=== PATIENT | female | born 1940 | race Caucasian/White ===

== ENCOUNTER → 2016-07-08 | Outpatient (CLI) | payer MEDICARE, OTHER ==
--- NOTE | 2016-07-09 08:33 | BD ---
EXAMINATION TYPE: MG DEXA axial skeleton. DATE OF EXAM: 07/08/2016 12:37 PM COMPARISON: 2008 CLINICAL HISTORY: post menopausal Height: 4'9 Weight: 149 FRAX RISK QUESTIONS: Alcohol (3 or more units per day): no Family History (Parent hip fracture): no Glucocorticoids (More than 3mos): no (Ex: prednisone, prednisolone, methylprednisolone, dexamethasone, and hydrocortisone). History of Fracture in Adulthood: no Secondary Osteoporosis: 1. Type 1 Diabetes: no 2. Hyperthyroidism: no 3. Menopause before 45: no 4. Malnutrition: no 5. Chronic liver disease: no Rheumatoid Arthritis: no Current Tobacco Use: no RISK FACTORS HISTORY OF: Postmenopausal woman: Lost more than 2 inches in height since high school: Poor Health: MEDICATIONS: Additional Medications: blood pressure, cholesterol, heart Additional History: post menopausal EXAM MEASUREMENTS: Bone mineral densitometry was performed using the [employer] System. Bone mineral density as measured about the Lumbar spine is: ----- L1-L4(G/cm2): 1.177 T Score Values are as follows: ----- L2: 0.3 ----- L3: -0.1 ----- L4: -0.7 ----- L1-L4: 0.0 Bone mineral density has: Decreased -2.1% since study of: 02/21/2009 Bone mineral density about the R hip (g/cm2): 0.778 Bone mineral density about the L hip (g/cm2): 0.743 T Score values are as follows: -----R Neck: -1.9 -----L Neck: -2.1 -----R Intertrochanter: -2.0 -----L Intertrochanter: -2.1 Bone mineral density has: Decreased -11.6 % since study of: 02/21/2009 IMPRESSION: 1. No evidence for osteoporosis or osteopenia about the lumbar spine. 2. Osteopenia about the bilateral femoral and acetabular sugars increased fracture risk. NOTE: T-SCORE=SD OF THE YOUNG ADULT MEAN.
--- NOTE | 2016-07-09 10:27 | MM ---
Reason for exam: screening (asymptomatic). Last mammogram was performed 2 years ago. History: Patient is postmenopausal. Benign stereotactic core biopsy of the left breast, January 10, 1999. Core biopsy of the left breast. Took hormonal contraceptives for 10 years beginning at age 35. Took estrogen for 12 years beginning at age 45. Physical Findings: A clinical breast exam by your physician is recommended on an annual basis and results should be correlated with mammographic findings. MG 3D Screening Mammo W/Cad Bilateral CC and MLO view(s) were taken. Prior study comparison: July 17, 2014, bilateral MG screening mammo w CAD. July 11, 2013, bilateral digital screening mammo w/CAD. July 05, 2012, bilateral digital screening mammo w/CAD. There are scattered fibroglandular densities. Finding: There are a few typically benign round calcifications in both breasts. Previous mammotome biopsy in the left breast. ASSESSMENT: Benign, BI-RAD 2 RECOMMENDATION: Routine screening mammogram of both breasts in 1 year.
== END | disposition home or self-care (01) ==
LOC: RADMAMWWP 11:53
PROVIDERS: ATTEND Internal Medicine
DX: Z12.31 Encounter for screening mammogram for malignant neoplasm of breast (principal); M85.852 Other specified disorders of bone density and structure, left thigh; M85.851 Other specified disorders of bone density and structure, right thigh
CPT/HCPCS: 77080; 77063; G0202

== ENCOUNTER 2017-02-10 06:51 | Day surgery (SDC) | payer MEDICARE, OTHER ==
[2017-02-05 13:44] VITALS: BMI 31.3
--- NOTE | 2017-02-09 10:46 | HP ---
HISTORY AND PHYSICAL CHIEF COMPLAINT: Left knee pain. HISTORY OF PRESENT ILLNESS: The patient is a 76-year-old retired female who presents with progressive left knee pain and giving way for the past 6 months. She notes it has worsened. She has intermittent catching and giving way. She has tried medications in addition to a previous injection with only partial temporary relief. PAST MEDICAL HISTORY: Significant for hypertension, coronary artery disease, renal disease, hyperlipidemia, reflux, and hypercalcemia. PAST SURGICAL HISTORY: Significant for previous foot surgery, bilateral carpal tunnel release and hysterectomy. CURRENT MEDICATIONS: 1. Aldactazide. 2. Baby aspirin. 3. Amlodipine. 4. Atorvastatin. 5. Losartan. 6. Metoprolol. ALLERGIES: She has sensitivity to TYLENOL WITH CODEINE and VICODIN, however, no mary drug allergies. FAMILY HISTORY: Negative. SOCIAL HISTORY: Negative for current tobacco or alcohol use. REVIEW OF SYSTEMS: Sixteen point review of systems otherwise reviewed and is noncontributory. PHYSICAL EXAMINATION: On examination, the patient is approximately 4 feet 7 inches, 152 pounds of endomorphic habitus. HEENT exam is nonfocal. Neck is supple. Active motion left knee -8 to 105 degrees of flexion. She has a moderate effusion. She is tender about the lateral joint line. Collaterals are stable, Ricky's negative, Mamadou's elicits lateral pain. Her distal neurovascular exam appears intact in the left lower extremity. X-rays to include weightbearing notch lateral and Merchant views of left knee obtained in the office showed moderate tricompartmental osteoarthrosis. Chondrocalcinosis is present. IMPRESSION: 1. Internal derangement, left knee with symptomatic lateral meniscal tear. 2. Left knee moderate tricompartmental osteoarthrosis. 3. Left knee chondrocalcinosis. RECOMMENDATIONS: I talked to the patient at length regarding her treatment options. At this point, she is quite symptomatic, having pain and mechanical symptoms that limit her. After thorough discussion, she opts to proceed with surgery. We will plan to proceed with arthroscopic evaluation with probable partial lateral meniscectomy. Risks and benefits were discussed at length in layman's terms. She underwent preoperative medical evaluation by Dr. Castrejon. MMKYA / NORAN: [id number] /
[~2017-02-10 06:51] MED LIST: DEXAMETHASONE SOD PHOSPHATE 10 MG/ML 1 ML VIAL IV ONE; LACTATED RINGERS 1,000 ML IV SCH; ONDANSETRON 4 MG/2 ML VIAL IVP ONE; ceFAZolin 1,000 MG in DEXTROSE/WATER 1 50ML.BAG IVPB ONE
[2017-02-10] MEDS ORDERED: LIDOCAINE 1% 20 ML VIAL (10MG/ML) FOR IV START INTRADERMA ONE (07:48)
[2017-02-10] MEDS ORDERED: fentaNYL (PF) 50 MCG/ML 2 ML AMP ONE (08:01)
[2017-02-10] MEDS ORDERED: ePHEDrine SULFATE/0.9% NACL/PF 50 MG/5 ML SYRINGE IV ONE (08:01)
[2017-02-10] MEDS ORDERED: PROPOFOL 10 MG/ML 20 ML VIAL IV ONE (08:01)
[2017-02-10] MEDS ORDERED: LIDOCAINE 1% INJ 10MG/ML (20 ML MDV) ONE (08:01)
[2017-02-10] MEDS ORDERED: MIDAZOLAM 2 MG/2 ML VIAL ONE (08:01)
[2017-02-10] MEDS ORDERED: KETOROLAC 30 MG/ML 1 ML VIAL ONE (08:01)
[2017-02-10] MEDS ORDERED: SUCCINYLCHOLINE CHLORIDE 100 MG/5 ML SYR IV ONE (08:01)
[2017-02-10 08:46] VITALS: TEMP 97
--- NOTE | 2017-02-10 08:48 | P.OP ---
Date of Procedure: 02/10/17 Preoperative Diagnosis: Left knee internal derangement/chondrocalcinosis Postoperative Diagnosis: Posterior horn left knee medial meniscal tear/posterior horn lateral meniscal tear/grade 3 chondral injury distal medial femoral condyle/synovitis- chondrocalcinosis Procedure(s) Performed: Left knee arthroscopic partial medial meniscectomy/partial lateral meniscectomy/ medial femoral chondrectomy/partial synovectomy of the medial, lateral, and patellofemoral compartments. Anesthesia: GETA Surgeon: Fabio Li Estimated Blood Loss (ml): 10 Pathology: none sent Condition: stable Disposition: PACU Indications for Procedure: the patient is a 76-year-old female who presents with progressive left knee pain and mechanical symptoms for the past 6 months despite conservative measures. A discussion of the risks and benefits of operative intervention versus continued conservative measures was made with the patient. She opted to proceed with surgery. Operative risks to include infection, neurovascular injury, development of blood clots, possible incomplete resolution symptoms, possible worsening symptoms and need for subsequent procedures was discussed. Informed consent was obtained. Operative Findings: As below Description of Procedure: The patient was brought to the operating room, and after induction of general anesthesia examined the left knee. Collaterals were stable, Ricky was negative, and posterior drawer was negative. The left lower extremity was prepped and draped in normal fashion. A superior lateral portal was made through a 3 mm skin incision superior and lateral to the patella. This was used for outflow. A moderate effusion was encountered. A lateral portal was made through a 5 mm skin incision above the joint line lateral to the patella tendon. Diagnostic arthroscopy was performed. A medial portal was made through a similar incision medial to the patella tendon above the joint line. On inspection the medial compartment, she is noted to have a longitudinal tear involving the posterior horn of the medial meniscus in the white-white junction. This was not amenable to repair. This was debrided back to stable base with straight baskets and a motorized shaver. Chondrocalcinosis was noted in place partial synovectomy of the medial, lateral, and patellofemoral compartments was performed. A grade 3 chondral injury was noted involving the posterior central portion medial femoral condyle. There was a loose chondral flap debrided back to stable base with a motorized shaver. On inspection the notch, the anterior cruciate ligament appeared to be intact. On inspection of the lateral compartment, a macerated tear involving the middle to posterior one third was noted in the white-white junction. This was debrided back to stable base with straight baskets and a motorized shaver. The edges were contoured. On inspection the patellofemoral articulation, there was chondral fibrillation however no loose chondral fragments. The gutters were clear debris. The knee was then thoroughly irrigated. The portals were closed with Steri-Strips. A sterile dressing was applied in addition to a compression stocking. The patient was awoken from general anesthesia and transferred to the recovery room in good condition. Blood loss was estimated at 10 mL. No complications were incurred.
[2017-02-10] MEDS: HYDROmorphone 0.5 MG/0.5 ML SYRINGE IVP PRN ×3 (08:56→09:13)
[2017-02-10 08:58] VITALS: RESP 16
[2017-02-10 11:53] VITALS: BP 92/44; PULSE 65
== END 2017-02-10 12:08 | disposition home or self-care (01) ==
LOC: OR 06:51
PROVIDERS: ATTEND Orthopaedic Surgery
DX: S83.242A Other tear of medial meniscus, current injury, left knee, initial encounter (principal); S83.282A Other tear of lateral meniscus, current injury, left knee, initial encounter; S83.32XA Tear of articular cartilage of left knee, current, initial encounter; X58.XXXA Exposure to other specified factors, initial encounter; M65.9 Synovitis and tenosynovitis, unspecified; M11.262 Other chondrocalcinosis, left knee; I25.10 Atherosclerotic heart disease of native coronary artery without angina pectoris; I12.9 Hypertensive chronic kidney disease with stage 1 through stage 4 chronic kidney disease, or unspecified chronic kidney disease; N18.9 Chronic kidney disease, unspecified; E78.5 Hyperlipidemia, unspecified; K21.9 Gastro-esophageal reflux disease without esophagitis; Z79.82 Long term (current) use of aspirin; Z79.899 Other long term (current) drug therapy; Z88.5 Allergy status to narcotic agent

== ENCOUNTER 2018-10-10 19:46 | Emergency (ER) | payer MEDICARE, OTHER ==
[2018-10-10 21:11] LABS: Basophils % (A) 0 %; Eosinophils # (A) 0.1 k/uL (0-0.7); Eosinophils % (A) 1 %; HCT 41.8 % (34.0-46.0); HGB 13.4 gm/dL (11.4-16.0); Lymphocytes # (A) 1.5 k/uL (1.0-4.8); Lymphocytes % (A) 11 %; MCH 29.5 pg (25.0-35.0); MCV 92.1 fL (80.0-100.0); Mean Platelet Volume 7.7; Monocytes # (A) 1.1 k/uL (0-1.0); Monocytes % (A) 8 %; Neutrophils # (A) 11.1 k/uL (1.3-7.7); Neutrophils % (A) 78 %; Platelet Count 232 k/uL (150-450); RBC 4.54 m/uL (3.80-5.40); RDW 13.2 % (11.5-15.5); WBC 14.2 k/uL (3.8-10.6)
[2018-10-10 21:19] LABS: Calcium 10.1 mg/dL (8.4-10.2); Potassium 3.7 mmol/L (3.5-5.1); Total Bilirubin 0.7 mg/dL (0.2-1.3); Total Protein 6.5 g/dL (6.3-8.2)
[2018-10-10 21:37] LABS: Appearance,Urine Clear (Clear); Bilirubin,Urine Negative (Negative); Blood,Urine Negative (Negative); Color,Urine Yellow; Glucose,Urine (UA) Negative (Negative); Ketones,Urine Negative (Negative); Leukocyte Esterase,Urine Moderate (Negative); Mucus,Urine Rare /hpf; Nitrite,Urine Negative (Negative); PH, Urine 5.5 (5.0-8.0); Protein,Urine Negative (Negative); RBC,Urine <1 /hpf (0-5); Specific Gravity,Urine 1.017 (1.001-1.035); Squamous Epithelial Cell,Urine <1 /hpf (0-4); Urobilinogen,Urine <2.0 mg/dL (<2.0)
--- NOTE | 2018-10-10 22:22 | CT ---
EXAM: CT Abdomen and Pelvis With Intravenous Contrast CLINICAL HISTORY: ITS.REASON CT Reason: abdominal pain TECHNIQUE: Axial computed tomography images of the abdomen and pelvis with intravenous contrast. CTDI is 21 mGy and DLP is 873 mGy-cm. This CT exam was performed using one or more of the following dose reduction techniques: automated exposure control, adjustment of the mA and/or kV according to patient size, and/or use of iterative reconstruction technique. COMPARISON: No relevant prior studies available. FINDINGS: Lung bases: No mass. No consolidation. ABDOMEN: Liver: Mild steatosis. Gallbladder and bile ducts: Unremarkable. Pancreas: Unremarkable. Spleen: Unremarkable. Adrenals: Unremarkable. Kidneys and ureters: No hydronephrosis. Cysts. Stomach and bowel: No bowel obstruction. No bowel wall thickening. Colonic diverticulosis. Superior stool impaction at the rectum. PELVIS: Appendix: No appendicitis. Bladder: Unremarkable. Reproductive: Left ovary measures 2.3 cm. ABDOMEN and PELVIS: Intraperitoneal space: Unremarkable. Bones/joints: No acute fractures. Soft tissues: Unremarkable. Vasculature: No abdominal aortic aneurysm. Lymph nodes: No enlarged lymph nodes. IMPRESSION: 1. Severe stool impaction at the rectum. Colonic diverticulosis. 2. Mild hepatic steatosis. 3. Left ovary measures up to 2.3 cm, more than expected for patient of postmenopausal status. Recommend outpatient follow-up with ultrasound to establish benignity.
[2018-10-11 00:40] VITALS: BP 168/70; PULSE 69; RESP 16; TEMP 98.2
--- NOTE | 2018-10-11 00:43 | ED ---
Abdominal Pain HPI - General Chief Complaint: Abdominal Pain Stated Complaint: Constipation Time Seen by Provider: 10/10/18 19:56 Source: patient Mode of arrival: ambulatory Limitations: no limitations - History of Present Illness Initial Comments: The patient is a 78-year-old female who presents to the emergency department with reported abdominal pain. She states that the pain started earlier today. She normally has a bowel movement every other day. States that she hasn't had improvement in 3 days. She has been drinking hot water using stool softeners and eating prunes. She has had no success in having a bowel movement. She also reports that she is to left finger to attempt to disimpact herself. She believes that she is constipated. She recently was put on a Medrol Dosepak for hip pain. She has had decreasing the amount of flatus that she is passing. She denies a history of bowel surgeries for small bowel obstructions. She denies any melanotic stools or hematochezia. No diarrhea. She denies any nausea or vomiting. Does admit to mild abdominal tenderness. No fevers or chills. There are no alleviating, precipitating or modifying factors - Related Data Home Medications Medication Instructions Recorded Confirmed Aspirin 81 mg PO DAILY 01/27/14 10/10/18 Losartan Potassium [Cozaar] 100 mg PO QAM 01/27/14 10/10/18 Spironolactone-Hctz 25-25Mg 0.5 tab PO QAM 01/27/14 10/10/18 [Aldactazide 25-25 MG] Atorvastatin [Lipitor] 20 mg PO HS 02/05/17 10/10/18 Cholecalciferol [Vitamin D3] 1,000 unit PO DAILY 02/05/17 10/10/18 Isosorbide Mononitrate [Isosorbide 30 mg PO QAM 02/05/17 10/10/18 Mononitrate ER] Magnesium 250 mg PO DAILY 02/05/17 10/10/18 Metoprolol Tartrate [Lopressor] 25 mg PO HS 02/05/17 10/10/18 Naproxen Sodium [Aleve] 220 mg PO BID 02/05/17 10/10/18 Travoprost [Travatan Z 0.004%] 1 drop BOTH EYES HS 02/05/17 10/10/18 Hydrochlorothiazide 25 mg PO Q48H 10/10/18 10/10/18 methylPREDNISolone Dose Pack See Taper PO DAILY 10/10/18 10/10/18 [Medrol Dose Pack] Allergies Allergy/AdvReac Type Severity Reaction Status Date / Time codeine Allergy Hallucinati Verified 10/10/18 20:19 ons hydrocodone bitartrate Allergy Hallucinati Verified 10/10/18 20:19 [From Vicodin] ons Review of Systems ROS Statement: Those systems with pertinent positive or pertinent negative responses have been documented in the HPI. ROS Other: All systems not noted in ROS Statement are negative. Past Medical History Past Medical History: Chest Pain / Angina, Eye Disorder, Hyperlipidemia, Hypertension Additional Past Medical History / Comment(s): GLAUCOMA, History of Any Multi-Drug Resistant Organisms: None Reported Past Surgical History: Hysterectomy, Orthopedic Surgery Additional Past Surgical History / Comment(s): RT FOOT BUNIONECTOMY, LEFT BREAST BX Past Anesthesia/Blood Transfusion Reactions: No Reported Reaction Past Psychological History: No Psychological Hx Reported Smoking Status: Never smoker Past Alcohol Use History: None Reported Past Drug Use History: None Reported - Past Family History Mother Family Medical History: AICD/Pacemaker, Coronary Artery Disease (CAD) Additional Family Medical History / Comment(s): MOTHER, CABG AND PACEMAKER General Exam Limitations: no limitations General appearance: alert, in no apparent distress Head exam: Present: atraumatic, normocephalic, normal inspection Eye exam: Present: normal appearance, PERRL, EOMI. Absent: scleral icterus, conjunctival injection, periorbital swelling ENT exam: Present: normal exam, mucous membranes moist Neck exam: Present: normal inspection. Absent: tenderness, meningismus, lymphadenopathy Respiratory exam: Present: normal lung sounds bilaterally. Absent: respiratory distress, wheezes, rales, rhonchi, stridor Cardiovascular Exam: Present: regular rate, normal rhythm, normal heart sounds. Absent: systolic murmur, diastolic murmur, rubs, gallop, clicks GI/Abdominal exam: Present: soft, normal bowel sounds. Absent: distended, tenderness, guarding, rebound, rigid Extremities exam: Present: normal inspection, full ROM, normal capillary refill. Absent: tenderness, pedal edema, joint swelling, calf tenderness Back exam: Present: normal inspection Neurological exam: Present: alert, oriented X3, CN II-XII intact Psychiatric exam: Present: normal affect, normal mood Skin exam: Present: warm, dry, intact, normal color. Absent: rash Course Vital Signs 10/10/18 10/10/18 19:51 22:30 Temperature 97.8 F 98.2 F Pulse Rate 67 69 Respiratory 18 16 Rate Blood Pressure 171/71 168/70 O2 Sat by Pulse 98 98 Oximetry Medical Decision Making - Medical Decision Making Upon arrival the patient is placed into room 4. She is hooked up to continuous pulse ox and cardiac monitoring. A thorough history and physical exam is per formed. I did recommend laboratory studies as well as a chief the patient's abdomen and pelvis as she stated that she has not been able to pass gas. Upon return results I did discuss with the patient. She does have a large rectal stool ball. Because of this I did recommend rectal impaction. Patient did agree to this. The procedure was performed the patient was able to have a large bowel movement. She did feel relief. I discussed diagnosis, differential and treatment options at home. I did recommend that the patient take MiraLAX for the next 5 days. She is to follow-up with her primary care physician for reevaluation. If she has any new or worsening symptoms she should return to em ergency room. Patient was in agreement to plan and she was discharged home in stable condition - Lab Data Result diagrams: 10/10/18 20:53 10/10/18 20:53 Lab Results 10/10/18 10/10/18 10/10/18 Range/Units 20:53 20:53 20:53 WBC 14.2 H (3.8-10.6) k/uL RBC 4.54 (3.80-5.40) m/uL Hgb 13.4 (11.4-16.0) gm/dL Hct 41.8 (34.0-46.0) % MCV 92.1 (80.0-100.0) fL MCH 29.5 (25.0-35.0) pg MCHC 32.0 (31.0-37.0) g/dL RDW 13.2 (11.5-15.5) % Plt Count 232 (150-450) k/uL Neutrophils % 78 % Lymphocytes % 11 % Monocytes % 8 % Eosinophils % 1 % Basophils % 0 % Neutrophils # 11.1 H (1.3-7.7) k/uL Lymphocytes # 1.5 (1.0-4.8) k/uL Monocytes # 1.1 H (0-1.0) k/uL Eosinophils # 0.1 (0-0.7) k/uL Basophils # 0.0 (0-0.2) k/uL Sodium 136 L (137-145) mmol/L Potassium 3.7 (3.5-5.1) mmol/L Chloride 102 (98-107) mmol/L Carbon Dioxide 23 (22-30) mmol/L Anion Gap 11 mmol/L BUN 61 H (7-17) mg/dL Creatinine 1.32 H (0.52-1.04) mg/dL Est GFR (CKD-EPI)AfAm 45 (>60 ml/min/1.73 sqM) Est GFR (CKD-EPI)NonAf 39 (>60 ml/min/1.73 sqM) Glucose 102 H (74-99) mg/dL Plasma Lactic Acid Gabriel 1.1 (0.7-2.0) mmol/L Calcium 10.1 (8.4-10.2) mg/dL Total Bilirubin 0.7 (0.2-1.3) mg/dL AST 29 (14-36) U/L ALT 30 (9-52) U/L Alkaline Phosphatase 107 (38-126) U/L Total Protein 6.5 (6.3-8.2) g/dL Albumin 4.0 (3.5-5.0) g/dL Lipase 612 H (23-300) U/L Urine Color Urine Appearance (Clear) Urine pH (5.0-8.0) Ur Specific [place] (1.001-1.035) Urine Protein (Negative) Urine Glucose (UA) (Negative) Urine Ketones (Negative) Urine Blood (Negative) Urine Nitrite (Negative) Urine Bilirubin (Negative) Urine Urobilinogen (<2.0) mg/dL Ur Leukocyte Esterase (Negative) Urine RBC (0-5) /hpf Urine WBC (0-5) /hpf Ur Squamous Epith Cells (0-4) /hpf Urine Mucus (None) /hpf 10/10/18 Range/Units 20:53 WBC (3.8-10.6) k/uL RBC (3.80-5.40) m/uL Hgb (11.4-16.0) gm/dL Hct (34.0-46.0) % MCV (80.0-100.0) fL MCH (25.0-35.0) pg MCHC (31.0-37.0) g/dL RDW (11.5-15.5) % Plt Count (150-450) k/uL Neutrophils % % Lymphocytes % % Monocytes % % Eosinophils % % Basophils % % Neutrophils # (1.3-7.7) k/uL Lymphocytes # (1.0-4.8) k/uL Monocytes # (0-1.0) k/uL Eosinophils # (0-0.7) k/uL Basophils # (0-0.2) k/uL Sodium (137-145) mmol/L Potassium (3.5-5.1) mmol/L Chloride (98-107) mmol/L Carbon Dioxide (22-30) mmol/L Anion Gap mmol/L BUN (7-17) mg/dL Creatinine (0.52-1.04) mg/dL Est GFR (CKD-EPI)AfAm (>60 ml/min/1.73 sqM) Est GFR (CKD-EPI)NonAf (>60 ml/min/1.73 sqM) Glucose (74-99) mg/dL Plasma Lactic Acid Gabriel (0.7-2.0) mmol/L Calcium (8.4-10.2) mg/dL Total Bilirubin (0.2-1.3) mg/dL AST (14-36) U/L ALT (9-52) U/L Alkaline Phosphatase (38-126) U/L Total Protein (6.3-8.2) g/dL Albumin (3.5-5.0) g/dL Lipase (23-300) U/L Urine Color Yellow Urine Appearance Clear (Clear) Urine pH 5.5 (5.0-8.0) Ur Specific [place] 1.017 (1.001-1.035) Urine Protein Negative (Negative) Urine Glucose (UA) Negative (Negative) Urine Ketones Negative (Negative) Urine Blood Negative (Negative) Urine Nitrite Negative (Negative) Urine Bilirubin Negative (Negative) Urine Urobilinogen <2.0 (<2.0) mg/dL Ur Leukocyte Esterase Moderate H (Negative) Urine RBC <1 (0-5) /hpf Urine WBC 2 (0-5) /hpf Ur Squamous Epith Cells <1 (0-4) /hpf Urine Mucus Rare H (None) /hpf - EKG Data EKG Comments: A 12-lead EKG is performed and the patient which demonstrated normal sinus rhythm. Ventricular rate of 63. WI interval 118. QRS 88. QTC of 427. There are no acute ST segment elevations or depressions concerning for ischemic changes Disposition Clinical Impression: Constipation, Abdominal pain Disposition: HOME SELF-CARE Condition: Stable Instructions (If sedation given, give patient instructions): Constipation (ED) Additional Instructions: Please follow up with your PCP in 2-4 days. Return to the ED for any new or worsening symptoms. Take Miralax daily for 5 days. Is patient prescribed a controlled substance at d/c from ED?: No Referrals: Lalito Castrejon MD [Primary Care Provider] - 1-2 days Time of Disposition: 00:42
== END 2018-10-11 00:50 | disposition home or self-care (01) ==
LOC: EC 19:46
DX: K59.00 Constipation, unspecified (principal); K57.30 Diverticulosis of large intestine without perforation or abscess without bleeding; K76.0 Fatty (change of) liver, not elsewhere classified; I10 Essential (primary) hypertension; E78.5 Hyperlipidemia, unspecified; Z79.1 Long term (current) use of non-steroidal anti-inflammatories (NSAID); Z79.82 Long term (current) use of aspirin; Z79.899 Other long term (current) drug therapy; Z88.5 Allergy status to narcotic agent; Z88.6 Allergy status to analgesic agent
CPT/HCPCS: 36415; 93005; 80053; 83605; 83690; 85025; 81001; 74177; 99284; Q9967

== ENCOUNTER → 2018-10-20 | Outpatient (CLI) | payer MEDICARE, OTHER ==
--- NOTE | 2018-10-21 07:28 | US ---
EXAMINATION TYPE: US pelvis complete transvag DATE OF EXAM: 10/20/2018 COMPARISON: NONE CLINICAL HISTORY: N83.0 OVARIAN CYST,R31.9 HEMATURIA. History of right oophorectomy and hysterectomy TECHNIQUE: Transvaginal (TV) and Transabdominal (TA) . Transabdominal sonographic images of the pel vis were acquired. Transvaginal sonographic images were medically necessary to better assess the fol lowing anatomy: left ovary, per order Date of LMP: Patient postmenopausal EXAM MEASUREMENTS: Uterus: Surgically absent Endometrial Stripe: Surgically absent Right Ovary: Surgically absent Left Ovary: cystic structure measuring 2.4 x 1.5 x 2.0cm 1. Uterus: Surgically absent 2. Endometrium: Surgically absent 3. Right Ovary: Surgically absent 4. Left adnexa: cystic structure again measuring 2.4 x 1.5 x 2.0 cm. This appears anechoic and simple without mural nodule number internal septation. 5. Bilateral Adnexa: wnl 6. Posterior cul-de-sac: wnl Unable to visualize cystic structure in left adnexa vaginally due to lateral location. IMPRESSION: 1. Simple 2.4 cm left ovarian cyst. According to consensus criteria a annual surveillance with pelvic ultrasound is recommended in postmenopausal female with cysts measuring up to 7 cm. 2. Surgical absence of the uterus and right ovary.
== END | disposition home or self-care (01) ==
LOC: RADUSWWP 15:20
PROVIDERS: ATTEND Internal Medicine
DX: N83.202 Unspecified ovarian cyst, left side (principal); N95.9 Unspecified menopausal and perimenopausal disorder; Z90.710 Acquired absence of both cervix and uterus; R31.9 Hematuria, unspecified
CPT/HCPCS: 76830; 76856

== ENCOUNTER → 2019-10-14 | Outpatient (CLI) | payer MEDICARE, OTHER ==
--- NOTE | 2019-10-14 15:18 | US ---
EXAMINATION TYPE: US carotid duplex LT DATE OF EXAM: 10/14/2019 COMPARISON: NONE CLINICAL HISTORY: 79-year-old female R09.89 symptoms and signs involving. LEFT bruit, no h/o stroke TECHNIQUE: Carotid duplex ultrasound examination. Indirect Doppler criteria utilized. FINDINGS: EXAM MEASUREMENTS: RIGHT: Peak Systolic Velocity (PSV) cm/sec ----- Right CCA: 92.7 ----- Right ICA: 86.6 ----- Right ECA: 157.2 ICA/CCA ratio: 0.9 RIGHT: End Diastole cm/sec ----- Right CCA: 15.1 ----- Right ICA: 10.7 ----- Right ECA: 16.6 LEFT: Peak Systolic Velocity (PSV) cm/sec ----- Left CCA: 104.7 ----- Left ICA: 120.7 ----- Left ECA: 176.6 ICA/CCA ratio: 1.2 LEFT: End Diastole cm/sec ----- Left CCA: 11.3 ----- Left ICA: 19.8 ----- Left ECA: 11.0 VERTEBRALS (direction of flow): Right Vertebral: Antegrade Left Vertebral: Antegrade Rhythm: Normal Roll Scale Worker notes: Moderate atherosclerotic plaque on the left with no significant stenosis IMPRESSION: Measurement suggest a mild stenosis proximal left ICA. No hemodynamically significant internal caroti d artery stenosis on either side. Criteria for Assigning % of Stenosis / Diameter reduction (Estimation based on the indirect measurements of the internal carotid artery velocities (ICA PSV). 1. Normal (no stenosis)=ICA PSV < 125 cm/s: ratio < 2.0: ICA EDV<40 cm/s. 2. Less than 50% stenosis=ICA PSV < 125 cm/s: ratio < 2.0: ICA EDV<40 cm/s. 3. 50 to 69% stenosis=ICA PSV of 125 to 230 cm/s: ration 2.0 ? 4.0: ICA EDV 40-100 cm/s. 4. Greater than 70% stenosis to near occlusion= ICA PSV > 230 cm/s: ratio > 4.0: ICA EDV > 100 cm/s. 5. Near occlusion= ICA PSV velocities may be low or undetectable: variable ratio and ICA EDV. 6. Total occlusion=unable to detect flow.
== END | disposition home or self-care (01) ==
LOC: RADUSWWP 14:49
PROVIDERS: ATTEND Internal Medicine
DX: I25.10 Atherosclerotic heart disease of native coronary artery without angina pectoris (principal)

== ENCOUNTER → 2020-01-18 | Outpatient (CLI) | payer MEDICARE, OTHER ==
[2020-01-18 20:26] LABS: Phosphorus 2.6 mg/dL (2.4-5.1)
[2020-01-19 10:36] LABS: Free Kappa Lt Chain Qnt, Serum 2.93 mg/dL (0.33-1.94)
== END | disposition home or self-care (01) ==
LOC: LABWHC1 10:55
PROVIDERS: ATTEND Internal Medicine
DX: E83.52 Hypercalcemia (principal)
CPT/HCPCS: 36415; 82306; 83883; 83970; 84100

== ENCOUNTER → 2020-06-19 | Outpatient (CLI) | payer MEDICARE, OTHER ==
--- NOTE | 2020-06-20 14:50 | MM ---
Reason for exam: screening (asymptomatic). Last mammogram was performed 2 years ago. History: Patient is postmenopausal. Benign stereotactic core biopsy of the left breast, January 10, 1999. Core biopsy of the left breast. Took hormonal contraceptives for 10 years beginning at age 35. Took estrogen for 12 years beginning at age 45. Physical Findings: A clinical breast exam by your physician is recommended on an annual basis and results should be correlated with mammographic findings. MG 3D Screening Mammo W/Cad Bilateral CC and MLO view(s) were taken. Prior study comparison: June 10, 2018, bilateral MG 3d screening mammo w/cad. July 08, 2016, bilateral MG 3d screening mammo w/cad. There are scattered fibroglandular densities. There is no discrete abnormality. No significant changes when compared with prior studies. ASSESSMENT: Negative, BI-RAD 1 RECOMMENDATION: Routine screening mammogram of both breasts in 1 year.
== END | disposition home or self-care (01) ==
LOC: RADMAMWWP 16:03
PROVIDERS: ATTEND Internal Medicine
DX: Z12.31 Encounter for screening mammogram for malignant neoplasm of breast (principal); Z78.0 Asymptomatic menopausal state
CPT/HCPCS: 77063; 77067

== ENCOUNTER 2020-07-20 15:02 | Emergency (ER) | payer MEDICARE, OTHER ==
[2020-07-20 15:24] VITALS: TEMP 98
[2020-07-20] MEDS ORDERED: SODIUM CHLORIDE 0.9% 1,000 ML IV ONE (15:59)
--- NOTE | 2020-07-20 16:05 | ED ---
Altered Mental Status HPI - General Chief Complaint: Altered Mental Status Stated Complaint: Confusion Time Seen by Provider: 07/20/20 15:45 Source: patient, RN notes reviewed Mode of arrival: wheelchair Limitations: no limitations - History of Present Illness Initial Comments: This is an 80-year-old female with no prior history of CVA or memory impairment she does have a family history of dementia as well as macular degeneration who states she's had a problem in the past week with remembering remote memory items such as going into rooms not knowing why she is there or fleeting what day of the week it was. No headaches fevers chills nausea vomiting sweats no trauma no other symptoms reported. No focal weaknesses. Per family member's with her she seems to be her normal self except for the memory issue. Patient does states she's had a issue lately with some urinary incontinence in the morning she does not get up during the night to go to the bathroom. MD Complaint: confusion - Related Data Home Medications Medication Instructions Recorded Confirmed Aspirin 81 mg PO HS 01/27/14 07/20/20 Losartan Potassium [Cozaar] 100 mg PO QAM 01/27/14 07/20/20 Atorvastatin [Lipitor] 20 mg PO HS 02/05/17 07/20/20 Isosorbide Mononitrate [Isosorbide 30 mg PO QAM 02/05/17 07/20/20 Mononitrate ER] Magnesium 250 mg PO HS 02/05/17 07/20/20 Metoprolol Tartrate [Lopressor] 25 mg PO DAILY 02/05/17 07/20/20 Travoprost [Travatan Z 0.004%] 1 drop BOTH EYES HS 02/05/17 07/20/20 hydroCHLOROthiazide 25 mg PO Q48H 10/10/18 07/20/20 Chlorthalidone 25 mg PO Q48H 07/20/20 07/20/20 Cholecalciferol (Vitamin D3) 125 mcg PO HS 07/20/20 07/20/20 [Vitamin D3 (5000 Iu)] Spironolactone [Aldactone] 25 mg PO DAILY 07/20/20 07/20/20 Previous Rx's Medication Instructions Recorded Cephalexin [Keflex] 500 mg PO Q8HR 1 Days #21 cap 07/20/20 Allergies Allergy/AdvReac Type Severity Reaction Status Date / Time codeine Allergy Hallucinati Verified 07/20/20 18:38 ons hydrocodone bitartrate Allergy Hallucinati Verified 07/20/20 18:38 [From Vicodin] ons Review of Systems ROS Statement: Those systems with pertinent positive or pertinent negative responses have been documented in the HPI. ROS Other: All systems not noted in ROS Statement are negative. Past Medical History Past Medical History: Chest Pain / Angina, Eye Disorder, Hyperlipidemia, Hypertension Additional Past Medical History / Comment(s): GLAUCOMA, History of Any Multi-Drug Resistant Organisms: None Reported Past Surgical History: Hysterectomy, Orthopedic Surgery Additional Past Surgical History / Comment(s): RT FOOT BUNIONECTOMY, LEFT BREAST BX Past Anesthesia/Blood Transfusion Reactions: No Reported Reaction Past Psychological History: No Psychological Hx Reported Smoking Status: Never smoker Past Alcohol Use History: None Reported Past Drug Use History: None Reported - Past Family History Mother Family Medical History: AICD/Pacemaker, Coronary Artery Disease (CAD) Additional Family Medical History / Comment(s): MOTHER, CABG AND PACEMAKER General Exam - General Exam Comments Initial Comments: This is a well-developed well-nourished awake alert oriented 3 female Limitations: no limitations General appearance: alert, in no apparent distress Head exam: Present: atraumatic, normocephalic, normal inspection Eye exam: Present: normal appearance, PERRL, EOMI. Absent: scleral icterus, conjunctival injection, periorbital swelling ENT exam: Present: mucous membranes dry Neck exam: Present: normal inspection. Absent: tenderness, meningismus, lymphadenopathy Respiratory exam: Present: normal lung sounds bilaterally. Absent: respiratory distress, wheezes, rales, rhonchi, stridor Cardiovascular Exam: Present: regular rate, normal rhythm, normal heart sounds. Absent: systolic murmur, diastolic murmur, rubs, gallop, clicks GI/Abdominal exam: Present: soft, normal bowel sounds. Absent: distended, tenderness, guarding, rebound, rigid Extremities exam: Present: normal inspection, full ROM, normal capillary refill. Absent: tenderness, pedal edema, joint swelling, calf tenderness Back exam: Present: normal inspection Neurological exam: Present: alert, oriented X3, CN II-XII intact Psychiatric exam: Present: normal affect, normal mood Skin exam: Present: warm, dry, intact, normal color. Absent: rash Course Vital Signs 0407/20/20 07/20/20 15:21 18:24 19:04 Temperature 98 F Pulse Rate 70 69 70 Respiratory 18 18 18 Rate Blood Pressure 182/65 191/59 174/56 O2 Sat by Pulse 97 99 98 Oximetry Medical Decision Making - Medical Decision Making I did discuss [employer] the patient family patient is awake alert oriented 3. She will be discharged she does have evidence of some dehydration as well as evidence of UTI. We placed on antibiotics she is a follow-up with her doctor return when necessary - Lab Data Result diagrams: 07/20/20 16:08 07/20/20 16:08 Lab Results 07/20/20 07/20/20 07/20/20 Range/Units 16:08 16:08 16:08 WBC 10.1 (3.8-10.6) k/uL RBC 4.82 (3.80-5.40) m/uL Hgb 14.7 (11.4-16.0) gm/dL Hct 43.8 (34.0-46.0) % MCV 90.9 (80.0-100.0) fL MCH 30.5 (25.0-35.0) pg MCHC 33.6 (31.0-37.0) g/dL RDW 12.2 (11.5-15.5) % Plt Count 207 (150-450) k/uL MPV 8.3 Neutrophils % 73 % Lymphocytes % 16 % Monocytes % 6 % Eosinophils % 4 % Basophils % 1 % Neutrophils # 7.4 (1.3-7.7) k/uL Lymphocytes # 1.6 (1.0-4.8) k/uL Monocytes # 0.6 (0-1.0) k/uL Eosinophils # 0.4 (0-0.7) k/uL Basophils # 0.1 (0-0.2) k/uL PT 9.5 (9.0-12.0) sec INR 0.9 (<1.2) APTT 20.9 L (22.0-30.0) sec Sodium (137-145) mmol/L Potassium (3.5-5.1) mmol/L Chloride (98-107) mmol/L Carbon Dioxide (22-30) mmol/L Anion Gap mmol/L BUN (7-17) mg/dL Creatinine (0.52-1.04) mg/dL Est GFR (CKD-EPI)AfAm (>60 ml/min/1.73 sqM) Est GFR (CKD-EPI)NonAf (>60 ml/min/1.73 sqM) Glucose (74-99) mg/dL Calcium (8.4-10.2) mg/dL Magnesium (1.6-2.3) mg/dL Total Bilirubin (0.2-1.3) mg/dL AST (14-36) U/L ALT (4-34) U/L Alkaline Phosphatase (38-126) U/L Ammonia (<30) umol/L Creatine Kinase (30-135) U/L Troponin I (0.000-0.034) ng/mL Total Protein (6.3-8.2) g/dL Albumin (3.5-5.0) g/dL Urine Color Yellow Urine Appearance Clear (Clear) Urine pH 6.5 (5.0-8.0) Ur Specific [place] 1.018 (1.001-1.035) Urine Protein Negative (Negative) Urine Glucose (UA) Negative (Negative) Urine Ketones Negative (Negative) Urine Blood Negative (Negative) Urine Nitrite Negative (Negative) Urine Bilirubin Negative (Negative) Urine Urobilinogen <2.0 (<2.0) mg/dL Ur Leukocyte Esterase Large H (Negative) Urine RBC 1 (0-5) /hpf Urine WBC 28 H (0-5) /hpf Ur Squamous Epith Cells <1 (0-4) /hpf Urine Bacteria Rare H (None) /hpf Hyaline Casts 1 (0-2) /lpf Urine Mucus Rare H (None) /hpf Urine Opiates Screen Not Detected (NotDetected) Ur Oxycodone Screen Not Detected (NotDetected) Urine Methadone Screen Not Detected (NotDetected) Ur Propoxyphene Screen Not Detected (NotDetected) Ur Barbiturates Screen Not Detected (NotDetected) U Tricyclic Antidepress Not Detected (NotDetected) Ur Phencyclidine Scrn Not Detected (NotDetected) Ur Amphetamines Screen Not Detected (NotDetected) U Methamphetamines Scrn Not Detected (NotDetected) U Benzodiazepines Scrn Not Detected (NotDetected) Urine Cocaine Screen Not Detected (NotDetected) U Marijuana (THC) Screen Not Detected (NotDetected) Influenza Type A (PCR) (Not Detectd) Influenza Type B (PCR) (Not Detectd) RSV (PCR) (Not Detectd) SARS-CoV-2 (PCR) (Not Detectd) 07/20/20 07/20/20 07/20/20 Range/Units 16:08 16:08 16:08 WBC (3.8-10.6) k/uL RBC (3.80-5.40) m/uL Hgb (11.4-16.0) gm/dL Hct (34.0-46.0) % MCV (80.0-100.0) fL MCH (25.0-35.0) pg MCHC (31.0-37.0) g/dL RDW (11.5-15.5) % Plt Count (150-450) k/uL MPV Neutrophils % % Lymphocytes % % Monocytes % % Eosinophils % % Basophils % % Neutrophils # (1.3-7.7) k/uL Lymphocytes # (1.0-4.8) k/uL Monocytes # (0-1.0) k/uL Eosinophils # (0-0.7) k/uL Basophils # (0-0.2) k/uL PT (9.0-12.0) sec INR (<1.2) APTT (22.0-30.0) sec Sodium 139 (137-145) mmol/L Potassium 3.8 (3.5-5.1) mmol/L Chloride 99 (98-107) mmol/L Carbon Dioxide 31 H (22-30) mmol/L Anion Gap 9 mmol/L BUN 45 H (7-17) mg/dL Creatinine 1.49 H (0.52-1.04) mg/dL Est GFR (CKD-EPI)AfAm 38 (>60 ml/min/1.73 sqM) Est GFR (CKD-EPI)NonAf 33 (>60 ml/min/1.73 sqM) Glucose 106 H (74-99) mg/dL Calcium 11.0 H (8.4-10.2) mg/dL Magnesium 2.3 (1.6-2.3) mg/dL Total Bilirubin 0.6 (0.2-1.3) mg/dL AST 35 (14-36) U/L ALT 22 (4-34) U/L Alkaline Phosphatase 109 (38-126) U/L Ammonia <9 (<30) umol/L Creatine Kinase 68 (30-135) U/L Troponin I <0.012 (0.000-0.034) ng/mL Total Protein 7.0 (6.3-8.2) g/dL Albumin 4.3 (3.5-5.0) g/dL Urine Color Urine Appearance (Clear) Urine pH (5.0-8.0) Ur Specific [place] (1.001-1.035) Urine Protein (Negative) Urine Glucose (UA) (Negative) Urine Ketones (Negative) Urine Blood (Negative) Urine Nitrite (Negative) Urine Bilirubin (Negative) Urine Urobilinogen (<2.0) mg/dL Ur Leukocyte Esterase (Negative) Urine RBC (0-5) /hpf Urine WBC (0-5) /hpf Ur Squamous Epith Cells (0-4) /hpf Urine Bacteria (None) /hpf Hyaline Casts (0-2) /lpf Urine Mucus (None) /hpf Urine Opiates Screen (NotDetected) Ur Oxycodone Screen (NotDetected) Urine Methadone Screen (NotDetected) Ur Propoxyphene Screen (NotDetected) Ur Barbiturates Screen (NotDetected) U Tricyclic Antidepress (NotDetected) Ur Phencyclidine Scrn (NotDetected) Ur Amphetamines Screen (NotDetected) U Methamphetamines Scrn (NotDetected) U Benzodiazepines Scrn (NotDetected) Urine Cocaine Screen (NotDetected) U Marijuana (THC) Screen (NotDetected) Influenza Type A (PCR) (Not Detectd) Influenza Type B (PCR) (Not Detectd) RSV (PCR) (Not Detectd) SARS-CoV-2 (PCR) (Not Detectd) 07/20/20 Range/Units 16:08 WBC (3.8-10.6) k/uL RBC (3.80-5.40) m/uL Hgb (11.4-16.0) gm/dL Hct (34.0-46.0) % MCV (80.0-100.0) fL MCH (25.0-35.0) pg MCHC (31.0-37.0) g/dL RDW (11.5-15.5) % Plt Count (150-450) k/uL MPV Neutrophils % % Lymphocytes % % Monocytes % % Eosinophils % % Basophils % % Neutrophils # (1.3-7.7) k/uL Lymphocytes # (1.0-4.8) k/uL Monocytes # (0-1.0) k/uL Eosinophils # (0-0.7) k/uL Basophils # (0-0.2) k/uL PT (9.0-12.0) sec INR (<1.2) APTT (22.0-30.0) sec Sodium (137-145) mmol/L Potassium (3.5-5.1) mmol/L Chloride (98-107) mmol/L Carbon Dioxide (22-30) mmol/L Anion Gap mmol/L BUN (7-17) mg/dL Creatinine (0.52-1.04) mg/dL Est GFR (CKD-EPI)AfAm (>60 ml/min/1.73 sqM) Est GFR (CKD-EPI)NonAf (>60 ml/min/1.73 sqM) Glucose (74-99) mg/dL Calcium (8.4-10.2) mg/dL Magnesium (1.6-2.3) mg/dL Total Bilirubin (0.2-1.3) mg/dL AST (14-36) U/L ALT (4-34) U/L Alkaline Phosphatase (38-126) U/L Ammonia (<30) umol/L Creatine Kinase (30-135) U/L Troponin I (0.000-0.034) ng/mL Total Protein (6.3-8.2) g/dL Albumin (3.5-5.0) g/dL Urine Color Urine Appearance (Clear) Urine pH (5.0-8.0) Ur Specific [place] (1.001-1.035) Urine Protein (Negative) Urine Glucose (UA) (Negative) Urine Ketones (Negative) Urine Blood (Negative) Urine Nitrite (Negative) Urine Bilirubin (Negative) Urine Urobilinogen (<2.0) mg/dL Ur Leukocyte Esterase (Negative) Urine RBC (0-5) /hpf Urine WBC (0-5) /hpf Ur Squamous Epith Cells (0-4) /hpf Urine Bacteria (None) /hpf Hyaline Casts (0-2) /lpf Urine Mucus (None) /hpf Urine Opiates Screen (NotDetected) Ur Oxycodone Screen (NotDetected) Urine Methadone Screen (NotDetected) Ur Propoxyphene Screen (NotDetected) Ur Barbiturates Screen (NotDetected) U Tricyclic Antidepress (NotDetected) Ur Phencyclidine Scrn (NotDetected) Ur Amphetamines Screen (NotDetected) U Methamphetamines Scrn (NotDetected) U Benzodiazepines Scrn (NotDetected) Urine Cocaine Screen (NotDetected) U Marijuana (THC) Screen (NotDetected) Influenza Type A (PCR) Not Detected (Not Detectd) Influenza Type B (PCR) Not Detected (Not Detectd) RSV (PCR) Not Detected (Not Detectd) SARS-CoV-2 (PCR) Not Detected (Not Detectd) - EKG Data -: EKG Interpreted by Me EKG shows normal: sinus rhythm EKG Comments: Sinus bradycardia rate of 56. Ago 120 QRS duration 86 QT since QTC 4:30/[address] configuration - Radiology Data Radiology results: report reviewed (Image reviewed no acute findings evidence of some cerebral atrophy.), image reviewed Disposition Clinical Impression: Urinary tract infection, Dehydration, Memory changes Disposition: HOME SELF-CARE Condition: Good Prescriptions: Cephalexin [Keflex] 500 mg PO Q8HR 1 Days #21 cap Is patient prescribed a controlled substance at d/c from ED?: No Referrals: Caden Castillo MD [Primary Care Provider] - 1-2 days
[2020-07-20 16:36] LABS: Basophils # (A) 0.1 k/uL (0-0.2); Basophils % (A) 1 %; Eosinophils # (A) 0.4 k/uL (0-0.7); Eosinophils % (A) 4 %; HCT 43.8 % (34.0-46.0); HGB 14.7 gm/dL (11.4-16.0); Lymphocytes # (A) 1.6 k/uL (1.0-4.8); Lymphocytes % (A) 16 %; MCH 30.5 pg (25.0-35.0); MCHC 33.6 g/dL (31.0-37.0); MCV 90.9 fL (80.0-100.0); Mean Platelet Volume 8.3; Monocytes # (A) 0.6 k/uL (0-1.0); Monocytes % (A) 6 %; Neutrophils # (A) 7.4 k/uL (1.3-7.7); Neutrophils % (A) 73 %; Platelet Count 207 k/uL (150-450); RBC 4.82 m/uL (3.80-5.40); RDW 12.2 % (11.5-15.5); WBC 10.1 k/uL (3.8-10.6)
[2020-07-20 16:45] LABS: Albumin 4.3 g/dL (3.5-5.0); Magnesium 2.3 mg/dL (1.6-2.3); Potassium 3.8 mmol/L (3.5-5.1); Total Bilirubin 0.6 mg/dL (0.2-1.3)
--- NOTE | 2020-07-20 16:47 | XR ---
EXAMINATION TYPE: XR chest 2V DATE OF EXAM: 07/20/2020 COMPARISON: 01/24/2014 HISTORY: Altered mental status. Confusion. TECHNIQUE: FINDINGS: There is no heart failure. There is slight blunting right costophrenic angle on the frontal view. There are no hilar masses. Thoracic aorta is atheromatous. Bony thorax is intact. There are no hilar masses. IMPRESSION: Minimal pleural reaction or atelectasis lateral right lung base appears new compared to o ld exam. Normal heart.
[2020-07-20 16:50] LABS: Amphetamine Screen,Urine Not Detected (NotDetected); Appearance,Urine Clear (Clear); Bacteria,Urine Rare /hpf; Barbiturate Screen,Urine Not Detected (NotDetected); Benzodiazepines Screen,Urine Not Detected (NotDetected); Bilirubin,Urine Negative (Negative); Blood,Urine Negative (Negative); Cocaine Screen,Urine Not Detected (NotDetected); Color,Urine Yellow; Glucose,Urine (UA) Negative (Negative); Hyaline Casts,Urine 1 /lpf (0-2); Ketones,Urine Negative (Negative); Leukocyte Esterase,Urine Large (Negative); Methadone Screen, Urine Not Detected (NotDetected); Mucus,Urine Rare /hpf; Nitrite,Urine Negative (Negative); Opiate Screen,Urine Not Detected (NotDetected); Oxycodone Screen, Urine Not Detected (NotDetected); PH, Urine 6.5 (5.0-8.0); Phencyclidine Screen,Urine Not Detected (NotDetected); Protein,Urine Negative (Negative); RBC,Urine 1 /hpf (0-5); Specific Gravity,Urine 1.018 (1.001-1.035); Squamous Epithelial Cell,Urine <1 /hpf (0-4); Tricyclic Antidepressant,Urine Not Detected (NotDetected); Urn Cannabinoid Scrn Not Detected (NotDetected); Urobilinogen,Urine <2.0 mg/dL (<2.0); WBC,Urine 28 /hpf (0-5)
[2020-07-20 16:54] LABS: INR 0.9 (<1.2); Prothrombin Time 9.5 sec (9.0-12.0)
[2020-07-20 17:21] LABS: Partial Thromboplastin Time 20.9 sec (22.0-30.0)
--- NOTE | 2020-07-20 18:01 | CT ---
EXAMINATION TYPE: CT brain wo con DATE OF EXAM: 07/20/2020 COMPARISON: None HISTORY: altered mental status CT DLP: 1080 mGycm Automated exposure control for dose reduction was used. There is cerebral cortical atrophy. There is no mass effect nor midline shift. There is no sign of in tracranial hemorrhage. Calvarium is intact. Skull base is intact. There is normal aeration of the mas toid sinuses. IMPRESSION: Cerebral atrophy. No acute intracranial abnormality.
[2020-07-20] MEDS ORDERED: SODIUM CHLORIDE 0.9% 500 ML 500 ML IV STA (18:39)
[2020-07-20 19:30] VITALS: BP 170/57; PULSE 72; RESP 16
== END 2020-07-20 19:29 | disposition home or self-care (01) ==
LOC: EC 15:02
DX: R41.3 Other amnesia (principal); N39.0 Urinary tract infection, site not specified; E86.0 Dehydration; E78.5 Hyperlipidemia, unspecified; I10 Essential (primary) hypertension; Z90.710 Acquired absence of both cervix and uterus; Z86.73 Personal history of transient ischemic attack (TIA), and cerebral infarction without residual deficits
CPT/HCPCS: 36415; 70450; 71046; 80053; 80306; 81001; 82140; 82550; 83735; 84484; 85025; 85610; 85730; 87086; 87636; 93005; 96360; 96361; 99285

== ENCOUNTER → 2020-09-13 | Outpatient (CLI) | payer MEDICARE, OTHER ==
--- NOTE | 2020-09-13 14:38 | MR ---
EXAMINATION TYPE: MR shoulder RT wo con DATE OF EXAM: 09/13/2020 COMPARISON: 07/23/2020 HISTORY: Right shoulder pain with limited range of movement for 2 months. TECHNIQUE: Multiplanar, multisequence imaging of the right shoulder is performed without contrast. FINDINGS: Motion degrades images. Rotator Cuff: There is a full-thickness supraspinatus tendon tear with approximately 2.3 cm of tendon retraction. There is a near full-thickness undersurface tear of the infraspinatus tendon. There is a focal full-thickness tear of the subscapularis tendon at the footplate. Teres minor tendon is intact . Acromioclavicular Joint: Degenerative changes are noted at the acromioclavicular joint. Glenohumeral Joint: There are degenerative changes of the glenohumeral joint with partial-thickness a rticular cartilage defects. Labrum: The labrum appears grossly intact given limitation of non-arthrogram study. Biceps Tendon: The long head of biceps is torn and retracted. Bone marrow signal: No focal abnormal marrow signal is appreciated. Other: No additional significant abnormality is appreciated. IMPRESSION: 1. Supraspinatus tendon tear with tendon retraction. 2. Near full-thickness undersurface tear of the infraspinatus tendon. 3. Focal full-thickness or of the subscapularis tendon at the footplate. 4. Long head biceps tendon is torn and retracted. 5. Degenerative changes of the glenohumeral and acromioclavicular joints with fluid in the subacromia l/subdeltoid bursa.
== END | disposition home or self-care (01) ==
LOC: RADMRIMAIN 12:55
PROVIDERS: ATTEND Orthopaedic Surgery
DX: M75.121 Complete rotator cuff tear or rupture of right shoulder, not specified as traumatic (principal); M19.011 Primary osteoarthritis, right shoulder

== ENCOUNTER → 2020-09-28 | Outpatient (CLI) | payer MEDICARE, OTHER ==
[2020-09-28 12:45] LABS: Basophils # (A) 0.1 k/uL (0-0.2); Basophils % (A) 1 %; Eosinophils # (A) 0.7 k/uL (0-0.7); Eosinophils % (A) 7 %; HCT 39.1 % (34.0-46.0); HGB 13.1 gm/dL (11.4-16.0); Lymphocytes # (A) 1.2 k/uL (1.0-4.8); Lymphocytes % (A) 13 %; MCH 31.6 pg (25.0-35.0); MCHC 33.6 g/dL (31.0-37.0); MCV 94.2 fL (80.0-100.0); Mean Platelet Volume 8.5; Monocytes # (A) 0.6 k/uL (0-1.0); Monocytes % (A) 7 %; Neutrophils # (A) 6.4 k/uL (1.3-7.7); Neutrophils % (A) 70 %; Platelet Count 214 k/uL (150-450); RBC 4.15 m/uL (3.80-5.40); RDW 12.7 % (11.5-15.5); WBC 9.2 k/uL (3.8-10.6)
[2020-09-28 12:49] LABS: INR 0.9 (<1.2); Prothrombin Time 9.7 sec (9.0-12.0)
[2020-09-28 13:04] LABS: Potassium 4.4 mmol/L (3.5-5.1)
== END | disposition home or self-care (01) ==
LOC: LABPAT 10:43
PROVIDERS: ATTEND Orthopaedic Surgery
DX: Z01.812 Encounter for preprocedural laboratory examination (principal); M75.41 Impingement syndrome of right shoulder; M19.011 Primary osteoarthritis, right shoulder; Z22.322 Carrier or suspected carrier of Methicillin resistant Staphylococcus aureus
CPT/HCPCS: 36415; 80051; 85025; 85610; 87070

== ENCOUNTER 2020-10-16 06:03 | Day surgery (SDC) | payer MEDICARE, OTHER ==
[2020-10-12 08:43] VITALS: BMI 28.0
--- NOTE | 2020-10-15 12:25 | HP ---
HISTORY AND PHYSICAL CHIEF COMPLAINT: Right shoulder pain and weakness. HISTORY OF PRESENT ILLNESS: Patient is an 80-year-old, right-hand dominant, retired female who presents with progressive right shoulder pain and weakness after a previous injury, reaching behind herself. She is having a difficult time with any overhead activity and is having significant night symptoms. She has tried therapy in addition to an injection and medications with minimal relief. PAST MEDICAL HISTORY: Significant for anxiety, hypercholesterolemia, along with hypertension. PAST SURGICAL HISTORY: Significant for previous foot surgery, bilateral carpal tunnel release and hysterectomy. CURRENT MEDICATIONS: Aspirin, atorvastatin, hydrochlorothiazide, isosorbide mononitrate, losartan, metoprolol, and spironolactone. ALLERGIES: She has sensitivity to Vicodin and Tylenol No.3, however, no mary drug allergies. FAMILY HISTORY: Negative. SOCIAL HISTORY: Negative for current tobacco or alcohol use. REVIEW OF SYSTEMS: Sixteen-point review of systems is otherwise reviewed and is noncontributory. PHYSICAL EXAMINATION: On examination, the patient is approximately 4 foot 11 inches, 140 pounds, of mesomorphic habitus. HEENT exam is nonfocal. Neck is supple. She is tender about the anterior subacromial space on the right shoulder. She has moderate subacromial crepitus. Active range of motion forward elevation 95 degrees, external rotation with the arm at side 35 degrees, internal rotation to L2. Passively I am able to forward elevate her to 150 degrees. Motor strength 4+/ 5 for abduction and external rotation. Impingement test, Neer test, and Speed tests are positive. Her distal neurovascular exam appears intact in the right upper extremity. MRI report right shoulder 09/13/2020 shows evidence of a retracted supraspinatus along with infraspinatus tears along with a proximal biceps rupture and glenohumeral joint arthropathy. IMPRESSION: 1. Right retracted large rotator cuff tear/rotator cuff arthropathy. 2. Right proximal biceps rupture. RECOMMENDATIONS: I talked to the patient at length regarding her condition along with treatment options. At this point, she is quite limited because of pain and weakness despite conservative measures. After thorough discussion, she opts to proceed with surgery. We will plan to proceed with reverse right total shoulder arthroplasty. Risks and benefits were discussed at length in layman's terms. MMODL / IJN: [id number] /
[~2020-10-16 06:03] MED LIST changes: +ACETAMINOPHEN TAB 500 MG TAB PO PRN; -DEXAMETHASONE SOD PHOSPHATE 10 MG/ML 1 ML VIAL IV ONE; +DEXAMETHASONE SOD PHOSPHATE 4 MG/ML 1 ML VIAL IV ONE; -LACTATED RINGERS 1,000 ML IV SCH; +MELOXICAM 7.5 MG TAB PO PRN; +TRANEXAMIC ACID 1,000 MG in SODIUM CHLORIDE 0.9% 100 ML IVPB PRN; -ceFAZolin 1,000 MG in DEXTROSE/WATER 1 50ML.BAG IVPB ONE
[2020-10-16] MEDS ORDERED: HYDROmorphone 0.5 MG/0.5 ML SYRINGE IVP PRN (07:00)
[2020-10-16] MEDS: LACTATED RINGERS 1,000 ML IV SCH ×2 (07:10→16:44)
[2020-10-16] MEDS ORDERED: LIDOCAINE 1% INJ 10MG/ML (20 ML MDV) ONE (07:40)
[2020-10-16] MEDS ORDERED: fentaNYL (PF) 50 MCG/ML 2 ML AMP ONE (07:40)
[2020-10-16] MEDS ORDERED: DEXAMETHASONE SOD PHOSPHATE 4 MG/ML 1 ML VIAL ONE (07:40)
[2020-10-16] MEDS ORDERED: ROPIVACAINE 5 MG/ML 30 ML VIAL ONE (07:40)
[2020-10-16] MEDS ORDERED: NEOSTIGMINE 1 MG/ML 10 ML VIAL ONE (07:40)
[2020-10-16] MEDS ORDERED: SODIUM CHLORIDE 0.9% 100 ML BAG ONE (07:40)
[2020-10-16] MEDS ORDERED: HYDROmorphone (PF) 1 MG/ML ONE (07:40)
[2020-10-16] MEDS ORDERED: TRANEXAMIC ACID 1,000 MG/10 ML VIAL ONE (07:40)
[2020-10-16] MEDS ORDERED: ePHEDrine SULFATE/0.9% NACL/PF 50 MG/5 ML SYRINGE IV ONE (07:40)
[2020-10-16] MEDS ORDERED: PROPOFOL 10 MG/ML 20 ML VIAL IV ONE (07:40)
[2020-10-16] MEDS ORDERED: GLYCOPYRROLATE 0.2 MG/ML 2 ML VIAL ONE (07:40)
[2020-10-16] MEDS ORDERED: ROCURONIUM 10 MG/ML (5 ML VIAL) IV ONE (07:40)
[2020-10-16] MEDS ORDERED: SUCCINYLCHOLINE CHLORIDE 100 MG/5 ML SYR IV ONE (07:40)
[2020-10-16] MEDS ORDERED: HYDROcodone/APAP 5-325MG 1 EACH TAB PO PRN (09:41)
[2020-10-16] MEDS ORDERED: SENNOSIDES-DOCUSATE SODIUM 1 EACH TAB PO PRN (09:41)
--- NOTE | 2020-10-16 10:07 | P.OP ---
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 Anesthesia: SHERRON Surgeon: Fabio Li Patient Flow Coordinator #1: Shemar Neal Estimated Blood Loss (ml): 100 Pathology: other (Humeral head) Condition: stable Disposition: PACU Indications for Procedure: The patient's [age]-year-old female who presents with progressive right shoulder pain and weakness secondary to a chronic retracted rotator cuff tear and arthropathy despite conservative measures. A discussion of the risks and benefits of operative intervention versus continued conservative measures was made with patient. She opted to proceed with surgery. Operative risks to include infection, neurovascular injury, fracture, development of blood clots, possible component loosening, possible instability and need for subsequent procedures was discussed. Informed consent was obtained. Operative Findings: As below Description of Procedure: The patient was brought to the operating room, and after induction of general anesthesia was placed in a beachchair position. The bony prominences were appropriately padded. I examined the right shoulder. There was no gross block to passive motion. The right upper extremity was prepped and draped in normal fashion. The bony outlines the coracoid process, distal clavicle, and acromion were outlined with a skin marker. A pulse centimeter deltopectoral incision was made lateral to the coracoid process. Skin was incised sharply. Subcutaneous tissues were divided bluntly. Electrocautery was used for hemostasis. The cephalic vein was identified and gently retracted laterally with the deltoid. The deltopectoral was bluntly developed. Subdeltoid adhesions were then released. The self-retaining retractor was placed. The conjoined tendon was retracted medially and the deltoid laterally. The biceps was identified. Its sheath was opened. A biceps tenotomy was performed along the remaining tendon did retract distally. A large retracted rotator cuff tear was noted involving the supraspinatus and infraspinatus along with a portion of the teres minor. The subscapularis was released and tagged with #2 Ethibond suture. The head was then exposed. The shoulder was dislocated. A starting hole was made in line with the humeral shaft. The canal was reamed by hand up to size 8. There was good distal chatter. The cutting guide was then placed. I planned on 20 of retroversion. The humeral head cut was then made. The bone was removed in one fragment. Residual inferomedial osteophytes were removed flush with the [place] cortical bone. Attention was then paid towards preparing the glenoid. An anterior and posterior retractors placed. The labrum was released from the 12-6 o'clock position. Remaining biceps was removed as well. A guidepin was placed in the inferior aspect of the glenoid with the guide slightly tilting inferior. The reamer was used down to a bleeding bony surface. The central peg hole was drilled. The standard baseplate was inserted with good purchase. Inferior, superior, and posterior locking screws the appropriate length were placed. Good purchase was obtained. The 38 mm glenosphere was inserted over a guidewire. This was fully seated. Care was taken to avoid any soft tissue interposition. Attention was then paid towards preparing the proximal humerus. The appropriate broach was placed and 20 of retroversion and was fully seated. An eccentric size 1 epiphyseal reamer was utilized. A size 8 stem with a size 1 epiphysis was placed and 20 of retroversion. Trial reduction was obtained with a 38 mm + 12 articular surface. The shoulder was taken through range of motion. It was felt to be stable in flexion and extension with internal and external rotation. I felt there was adequate muslim of soft tissue tension judging off the conjoined tendon. The shoulder was gently dislocated. The trial components were then removed. The final size 8 cemented stem along with a size 1 epiphysis was fully seated. After the cement had sufficiently hardened, the shoulder was taken through a range of motion with the 38+12 trial articular surface. There was good rotational stability. The 38 mm + 12 articular surface was impacted. The shoulder again was gently reduced and taken through range of motion. Again it was felt to be stable in all planes. Pulsatile lavage was utilized. The subscapularis was a attached to the lesser tuberosity with #2 Ethibond suture. The deltopectoral interval was closed with interrupted 2-0 Vicryl sutures. The skin was reapproximated with 3-0 subcuticular Prolene suture. Steri-Strips were applied. A sterile dressing was applied. A sling was placed. The patient was awoken from general anesthesia and transferred to recovery room in good condition. Blood loss was estimated at 100 mL. No complications were incurred. Sponge and needle counts were correct at the end the case. Shemar ZELAYA assisted during the major components of the case to include exposure, glenoid and humeral preparation, implantation, and closure.
--- NOTE | 2020-10-16 10:24 | XR ---
EXAMINATION TYPE: XR shoulder limited RT DATE OF EXAM: 10/16/2020 CLINICAL HISTORY: s/p right total shoulder arthroplasty TECHNIQUE: Portable view of the right shoulder COMPARISON: None FINDINGS: Total shoulder arthroplasty is in place with glenoid and humeral components appearing well seated. Alignment is anatomic. Postsurgical soft tissue changes seen. IMPRESSION: As above
--- NOTE | 2020-10-16 10:32 | P.ANPRN ---
Procedure Note - Anesthesia - Nerve Block Performed Right Interscalene Single Time Out Performed: Yes Date of Procedure: 10/16/20 Procedure Start Time: : Procedure Stop Time: Location of Patient: Phase I Indication: Acute Post-Operative Pain, Requested by Surgeon Sedation Type: Sedate with meaningful contact maintained Preparation: Sterile Prep, Sterile Dressing Position: Sitting Catheter: None Needle Types: [place]ajunk Needle Gauge: 20 Ultrasound used to visualize needle placement: Yes Ultrasound used to observe medication spread: Yes Injectate: 0.5% Ropivacaine (see comment for volume) (20 ml + decadron 4 mg) Blood Aspirated: No Pain Paresthesia on Injection Noted: No Resistance on Injection: Normal Image Stored and Saved: Yes Events: Uneventful and Well Tolerated
[2020-10-16] MEDS ORDERED: LACTATED RINGERS 1,000 ML IV ONE (11:10)
[2020-10-16] MEDS: ONDANSETRON 4 MG/2 ML VIAL IVP PRN ×2 (14:07→19:28)
--- NOTE | 2020-10-16 15:31 | P.CONS ---
History of Present Illness - Reason for Consult Consult date: 10/16/20 HTN Requesting physician: Fabio Li - Chief Complaint right shoulder pain - History of Present Illness Patient is an 80-year-old female with a history of high blood pressure, coronary artery disease, and chronic kidney disease who presented for elective right reverse total shoulder arthroplasty. After surgery patient did have some postoperative pain requiring initial Dilaudid and nerve block. She then had some postop nausea and vomiting treated with Zofran. Patient seen and examined at bedside. Nausea is now resolved, she has not ate anything yet. She states that she injured her shoulder in July 2020, she tried steroid injections and therapy both which did not relieve her pain and she therefore proceeded with surgical intervention. She denies any chest pain, shortness of breath. She is not feeling lightheaded or dizzy. Pertinent positives and negatives as discussed in HPI, a complete review of systems was performed and all other systems are negative. General: non toxic, no distress, appears at stated age Derm: warm, dry Head: atraumatic, normocephalic, symmetric Eyes: EOMI, no lid lag, anicteric sclera, pupils equal round reactive to light ENT: Nose and ears atraumatic, no thrush, no pharyngeal erythema Neck: No thyromegaly, no cervical lymphadenopathy, trachea midline, supple Mouth: no lip lesion, mucus membranes moist Cardiovascular: S1S2 reg, no murmur, positive posterior tibial pulse bilateral, no edema, capillary refill less than 2 seconds Lungs: clear to ascultation bilateral, no ronchi, no rales, no wheeze, no accessory muscle use Abdominal: soft, nontender to palpation, no guarding, no appreciable organomegaly, normal bowel sounds Ext: no gross muscle atrophy, muscle strength muscle strength 5 out of 5 in all 4 extremities, no contractures Neuro: CN II-XI grossly intact, light touch intact all 4 extremities, finger to nose within normal limits, Psych: Alert, oriented, appropriate affect 80-year-old female status post right reverse total shoulder arthroplasty. Management per orthopedic services. Hypertension, Controlled -Resume home hydrochlorothiazide, Aldactone, and Cozaar -Hold Lopressor secondary to postoperative bradycardia -Follow blood pressures Dyslipidemia -Resume statin therapy Angina -Resume Imdur Glaucoma -Resume eyedrops Thank you for allowing us to participate in the care of this pleasant patient. Do not hesitate to contact us with questions. Someone can be reached from the [facility] hospitalist group all hours of the day at [phone] or via [employer] Past Medical History Past Medical History: Chest Pain / Angina, Eye Disorder, Hyperlipidemia, Hypertension Additional Past Medical History / Comment(s): GLAUCOMA, History of Any Multi-Drug Resistant Organisms: None Reported Past Surgical History: Hysterectomy, Orthopedic Surgery Additional Past Surgical History / Comment(s): RT FOOT BUNIONECTOMY, LEFT BREAST BX Past Anesthesia/Blood Transfusion Reactions: Postoperative Nausea & Vomiting (PONV) Past Psychological History: No Psychological Hx Reported Smoking Status: Never smoker Past Alcohol Use History: None Reported Past Drug Use History: None Reported - Past Family History Mother Family Medical History: AICD/Pacemaker, Coronary Artery Disease (CAD) Additional Family Medical History / Comment(s): MOTHER, CABG AND PACEMAKER Son(s) Family Medical History: Cancer Medications and Allergies Home Medications Medication Instructions Recorded Confirmed Type Aspirin 81 mg PO HS 01/27/14 10/12/20 History Losartan Potassium [Cozaar] 100 mg PO QAM 01/27/14 10/12/20 History Atorvastatin [Lipitor] 20 mg PO HS 02/05/17 10/12/20 History Isosorbide Mononitrate [Isosorbide 30 mg PO QAM 02/05/17 10/12/20 History Mononitrate ER] Magnesium 250 mg PO HS 02/05/17 10/12/20 History Metoprolol Tartrate [Lopressor] 25 mg PO DAILY 02/05/17 10/12/20 History Travoprost [Travatan Z 0.004%] 1 drop BOTH EYES HS 02/05/17 10/12/20 History hydroCHLOROthiazide 25 mg PO Q48H 10/10/18 10/12/20 History Chlorthalidone 25 mg PO Q48H 07/20/20 10/12/20 History Cholecalciferol (Vitamin D3) 125 mcg PO HS 07/20/20 10/12/20 History [Vitamin D3 (5000 Iu)] Spironolactone [Aldactone] 12.5 mg PO DAILY 07/20/20 10/12/20 History Allergies Allergy/AdvReac Type Severity Reaction Status Date / Time codeine Allergy Hallucinations, Verified 10/16/20 07:04 "makes me loopy" hydrocodone bitartrate Allergy Hallucinati Verified 10/16/20 07:04 [From Vicodin] ons Physical Exam Osteopathic Statement: *. No significant issues noted on an osteopathic structural exam other than those noted in the History and Physical/Consult. Vitals: Vital Signs Temp Pulse Resp BP Pulse Ox 10/16/20 12:58 49 L 94/55 97 10/16/20 12:44 49 L 104/41 94 L 10/16/20 12:29 52 L 110/42 96 10/16/20 12:14 46 L 95/44 10/16/20 12:07 47 L 18 90/45 96 10/16/20 12:04 49 L 77/34 96 10/16/20 11:58 49 L 87/49 10/16/20 11:45 51 L 16 101/57 97 10/16/20 11:30 52 L 16 100/46 97 10/16/20 11:15 54 L 16 105/46 98 10/16/20 11:00 52 L 16 90/42 97 10/16/20 10:45 49 L 16 101/50 97 10/16/20 10:30 53 L 16 100/59 93 L 10/16/20 10:15 63 16 121/56 98 10/16/20 10:01 97.4 F L 68 16 100/48 98 10/16/20 06:51 97.8 F 58 L 16 158/68 98 Intake and Output 10/16/20 10/16/20 10/16/20 06:59 14:59 22:59 Intake Total 1050 Output Total 100 Balance 950 Intake: IV 1050 Output: Estimated Blood Loss 100 Other: Weight 63.1 kg 63.1 kg
[2020-10-16] MEDS ORDERED: LATANOPROST 0.005% OPHTH DROPS 2.5 ML BTL BOTH EYES SCH (21:00)
[2020-10-16] MEDS ORDERED: ATORVASTATIN 20 MG TAB PO SCH (21:00)
[2020-10-16] MEDS ORDERED: MAGNESIUM OXIDE 400 MG TAB PO SCH (21:00)
[2020-10-16] MEDS ORDERED: CHOLECALCIFEROL 25 MCG (1000 IU) TABLET PO SCH (21:00)
[2020-10-17 07:54] VITALS: BP 101/53; PULSE 78; RESP 16; TEMP 97.8
[2020-10-17] MEDS: hydroCHLOROthiazide 25 MG TAB PO SCH ×2 (07:59→08:29)
[2020-10-17] MEDS: SPIRONOLACTONE 25 MG TAB PO SCH ×2 (07:59→08:29)
[2020-10-17] MEDS: ISOSORBIDE MONONITRATE ER 30 MG TAB.ER.24H PO SCH ×2 (07:59→08:29)
--- NOTE | 2020-10-17 08:28 | P.PN ---
Subjective Progress Note Date: 10/17/20 Patient is an 80-year-old female with a history of high blood pressure, coronary artery disease, and chronic kidney disease who presented for elective right reverse total shoulder arthroplasty. After surgery patient did have some postoperative pain requiring initial Dilaudid and nerve block. She then had some postop nausea and vomiting treated with Zofran. Patient seen and examined at bedside. States pain is tolerable at this time, no additional postoperative nausea, we discussed indications for resuming her blood pressure medications at home with the of systolic blood pressures greater than 120 and diastolic is greater than 80. She does have a blood pressure cuff at home. General: non toxic, no distress, appears at stated age Derm: warm, dry Head: atraumatic, normocephalic, symmetric Eyes: EOMI, no lid lag, anicteric sclera Mouth: no lip lesion, mucus membranes moist Cardiovascular: S1S2 reg, no murmur, positive posterior tibial pulse bilateral, Lungs: CTA bilateral, no rhonchi, no rales , no accessory muscle use Abdominal: soft, nontender to palpation, no guarding, no appreciable organomegaly Ext: no gross muscle atrophy, no edema,, right arm sling Neuro: CN II-XI grossly intact, no focal neuro deficits Psych: Alert, oriented, appropriate affect Hypertension, Controlled -Nursing concerned about blood pressure in the low 100s with her amount of medications. They will give her Imdur, Aldactone and hydrochlorothiazide. We will hold her Cozaar and metoprolol -Resume Cozaar metoprolol at home > systolic greater than 120 and diastolic greater than 80. Injections added to discharge tab. Dyslipidemia - statin therapy Angina - Imdur - resume ASA, will need dosing as fit per ortho and then once completes her one month can resume ASA 81 mg nightly Glaucoma -eyedrops Objective - Vital Signs Vital signs: Vital Signs Temp 97.8 F 10/17/20 07:51 Pulse 78 10/17/20 07:51 Resp 16 10/17/20 07:51 BP 101/53 10/17/20 07:51 Pulse Ox 93 L 10/17/20 07:51 Intake & Output 10/16/20 10/17/20 10/17/20 18:59 06:59 18:59 Intake Total 1050 290 Output Total 100 Balance 950 290 Weight 63.1 kg Intake: IV 1050 Intake, IV Titration 290 Amount Lactated Ringers 1,000 ml 240 @ 20 mls/hr IV .Q24H [facility] Rx#:[id number] ceFAZolin 2 gm In Sodium 50 Chloride 0.9% 50 ml @ 100 mls/hr IVPB Q8HR [facility] Rx# :[id number] Output: Estimated Blood Loss 100 Other: # Voids 0 2 # Bowel Movements 0
[2020-10-17] MEDS ORDERED: CHLORTHALIDONE 25 MG TAB PO SCH (09:00)
[2020-10-17] MEDS ORDERED: LOSARTAN 50 MG TAB PO SCH (09:00)
[2020-10-17] MEDS ORDERED: ASPIRIN 325 MG TAB PO SCH (09:00)
--- NOTE | 2020-10-17 09:42 | P.PN ---
Subjective Progress Note Date: 10/17/20 Principal diagnosis: status post reverse right total shoulder arthroplasty Patient is evaluated at bedside today, she is resting in her hospital chair. She is currently utilizing the arm sling. Currently denies any headaches, lightheadedness, chest pain or shortness of breath. Her pain is currently controlled. She was able to ambulate throughout the room of difficulties. She is urinating with no problems. Objective - Vital Signs Vital signs: Vital Signs Temp 97.8 F 10/17/20 07:51 Pulse 78 10/17/20 07:51 Resp 16 10/17/20 07:51 BP 101/53 10/17/20 07:51 Pulse Ox 93 L 10/17/20 07:51 Intake & Output 10/16/20 10/17/20 10/17/20 18:59 06:59 18:59 Intake Total 1050 290 Output Total 100 Balance 950 290 Weight 63.1 kg Intake: IV 1050 Intake, IV Titration 290 Amount Lactated Ringers 1,000 ml 240 @ 20 mls/hr IV .Q24H [facility] Rx#:[id number] ceFAZolin 2 gm In Sodium 50 Chloride 0.9% 50 ml @ 100 mls/hr IVPB Q8HR [facility] Rx# :[id number] Output: Estimated Blood Loss 100 Other: # Voids 0 2 # Bowel Movements 0 - Exam Right upper extremity: Postop bandage was removed today at bedside, the Steri-Strips and suture are intact. Minimal soft tissue swelling and ecchymosis present in the distal humerus and the elbow. Elbow extension and flexion along with wrist extension and flexion are intact. She is wiggling her fingers with no difficulty. Her sensory exam to light touch throughout that extremity is intact, compartments are soft. Radial and ulnar pulses are 2+. Assessment and Plan Assessment: Postoperative day #1 status post reverse right total shoulder arthroplasty Plan: Pain control, we'll discharge home on low-dose oral medication as needed GI and DVT prophylaxis, aspirin 81 mg twice a day for 2 weeks Wound care instructions were discussed, this including showering instructions Utilization of the arm sling was discussed with patient, including activity level restrictions Encourage incentive spirometer Medical recommendations Discharge planning: Patient will be discharged home today Time with Patient: Less than 30
== END 2020-10-17 12:14 | disposition home or self-care (01) ==
LOC: OR 06:03 → 4SSUR 11:40 → OR 10-17 12:14
PROVIDERS: ATTEND Orthopaedic Surgery
DX: M75.101 Unspecified rotator cuff tear or rupture of right shoulder, not specified as traumatic (principal); I10 Essential (primary) hypertension; E78.5 Hyperlipidemia, unspecified; Z79.82 Long term (current) use of aspirin; Z79.899 Other long term (current) drug therapy; I25.10 Atherosclerotic heart disease of native coronary artery without angina pectoris; I08.0 Rheumatic disorders of both mitral and aortic valves; M19.90 Unspecified osteoarthritis, unspecified site; Z88.5 Allergy status to narcotic agent
CPT/HCPCS: 97161; 64415; 76942; 88300; 73020; 23472; C1713; C1776; J1100; J2710; J0690; J2405; J2001; J3010; J1170; J2795; J0330; J2704

== ENCOUNTER 2020-10-21 17:06 | Emergency (ER) | payer MEDICARE, OTHER ==
--- NOTE | 2020-10-21 17:55 | XR ---
EXAMINATION TYPE: XR Abdomen 1 View DATE OF EXAM: 10/21/2020 5:47 PM CLINICAL HISTORY: Constipation TECHNIQUE: Single upright image of the abdomen is obtained. COMPARISON: CT Abdomen/pelvis 10/10/2018 FINDINGS: Scattered gas is seen in non-distended small bowel loops. Gas and fecal material is seen in non-diste nded colon with moderate amount of retained stool. There is no visceromegaly, pneumoperitoneum, or ab normal calcification appreciated. The lung bases are clear and the osseous structures are intact. IMPRESSION: 1. Nonobstructive bowel gas pattern. 2. Moderate amount retained stool in the colon
--- NOTE | 2020-10-21 18:52 | ED ---
Abdominal Pain HPI - General Chief Complaint: Abdominal Pain Stated Complaint: Constipation Time Seen by Provider: 10/21/20 17:24 Source: patient Mode of arrival: wheelchair Limitations: no limitations - History of Present Illness Initial Comments: 80-year-old male presents to emergency with a chief complaint of constipation. Patient reports she has been taking oral After she underwent a recent shoulder surgery. States she has not had a bowel movement in about 5 days. Is not report any abdominal pain and still is able to pass gas. Denies any nausea or vomiting. Patient states she can feel the stool near the rectum but is not able to have a bowel movement. Her attempted to manually disimpact the patient with no improvement in symptoms. - Related Data Home Medications Medication Instructions Recorded Confirmed Aspirin 81 mg PO HS 01/27/14 10/12/20 Losartan Potassium [Cozaar] 100 mg PO QAM 01/27/14 10/12/20 Atorvastatin [Lipitor] 20 mg PO HS 02/05/17 10/12/20 Isosorbide Mononitrate [Isosorbide 30 mg PO QAM 02/05/17 10/12/20 Mononitrate ER] Magnesium 250 mg PO HS 02/05/17 10/12/20 Metoprolol Tartrate [Lopressor] 25 mg PO DAILY 02/05/17 10/12/20 Travoprost [Travatan Z 0.004%] 1 drop BOTH EYES HS 02/05/17 10/12/20 hydroCHLOROthiazide 25 mg PO Q48H 10/10/18 10/12/20 Chlorthalidone 25 mg PO Q48H 07/20/20 10/12/20 Cholecalciferol (Vitamin D3) 125 mcg PO HS 07/20/20 10/12/20 [Vitamin D3 (5000 Iu)] Spironolactone [Aldactone] 12.5 mg PO DAILY 07/20/20 10/12/20 Previous Rx's Medication Instructions Recorded Aspirin [Adult Low Dose Aspirin EC] 81 mg PO BID #60 tablet. 10/17/20 Docusate [Colace] 100 mg PO DAILY #30 capsule 10/17/20 HYDROcodone/APAP 5-325MG [[place] 1 tab PO Q6HR PRN 3 Days #21 tab 10/17/20 5-325] Allergies Allergy/AdvReac Type Severity Reaction Status Date / Time codeine Allergy Hallucinations, Verified 10/21/20 17:20 "makes me loopy" Review of Systems ROS Statement: Those systems with pertinent positive or pertinent negative responses have been documented in the HPI. ROS Other: All systems not noted in ROS Statement are negative. Past Medical History Past Medical History: Chest Pain / Angina, Eye Disorder, Hyperlipidemia, Hypertension Additional Past Medical History / Comment(s): GLAUCOMA, History of Any Multi-Drug Resistant Organisms: None Reported Past Surgical History: Hysterectomy, Orthopedic Surgery Additional Past Surgical History / Comment(s): RT FOOT BUNIONECTOMY, LEFT BREAST BX Past Anesthesia/Blood Transfusion Reactions: Postoperative Nausea & Vomiting (PONV) Past Psychological History: No Psychological Hx Reported Smoking Status: Never smoker Past Alcohol Use History: None Reported Past Drug Use History: None Reported - Past Family History Mother Family Medical History: AICD/Pacemaker, Coronary Artery Disease (CAD) Additional Family Medical History / Comment(s): MOTHER, CABG AND PACEMAKER Son(s) Family Medical History: Cancer General Exam Limitations: no limitations General appearance: alert, in no apparent distress Head exam: Present: atraumatic, normocephalic, normal inspection Eye exam: Present: normal appearance, PERRL, EOMI Pupils: Present: normal accommodation ENT exam: Present: normal exam, normal oropharynx, mucous membranes moist Neck exam: Present: normal inspection, full ROM. Absent: tenderness Respiratory exam: Present: normal lung sounds bilaterally. Absent: respiratory distress Cardiovascular Exam: Present: regular rate, normal rhythm, normal heart sounds. Absent: systolic murmur GI/Abdominal exam: Present: soft. Absent: distended, tenderness, guarding, rebound Extremities exam: Present: normal inspection, full ROM, normal capillary refill. Absent: tenderness, pedal edema, joint swelling Back exam: Present: normal inspection, full ROM. Absent: tenderness Neurological exam: Present: alert, oriented X3 Psychiatric exam: Present: normal affect, normal mood Skin exam: Present: warm, dry, intact, normal color Course Vital Signs 10/21/20 17:17 Temperature 98.4 F Pulse Rate 81 Respiratory 16 Rate Blood Pressure 127/45 O2 Sat by Pulse 96 Oximetry Medical Decision Making - Medical Decision Making 80-year-old female presents to the emergency department the chief complaint of constipation. Physical examination is unremarkable. No abdominal tenderness. KUB shows moderate amount of stool. Patient was given a milk of molasses enema and she was able to have a large bowel movement. Patient reports improving his symptoms. Advised a high-fiber diet. PCP follow-up. Case discussed with Dr. Grove. Disposition Clinical Impression: Constipation Disposition: HOME SELF-CARE Condition: Stable Instructions (If sedation given, give patient instructions): Constipation (DC), High Fiber Diet (ED), Fleet Enema (ED) Additional Instructions: Please return to the Emergency Department if symptoms worsen or any other concerns. Is patient prescribed a controlled substance at d/c from ED?: No Referrals: Caden Castillo MD [Primary Care Provider] - 1-2 days Time of Disposition: 18:52
[2020-10-21 19:23] VITALS: BP 138/72; PULSE 77; RESP 18; TEMP 98
== END 2020-10-21 19:10 | disposition home or self-care (01) ==
LOC: EC 17:06
DX: K59.00 Constipation, unspecified (principal); I10 Essential (primary) hypertension; E78.5 Hyperlipidemia, unspecified; Z79.82 Long term (current) use of aspirin; Z79.899 Other long term (current) drug therapy; Z82.49 Family history of ischemic heart disease and other diseases of the circulatory system; Z88.5 Allergy status to narcotic agent
CPT/HCPCS: 74018; 99284

== ENCOUNTER 2021-05-31 09:08 | Day surgery (SDC) | payer MEDICARE, OTHER ==
[~2021-05-31 09:08] MED LIST changes: -ACETAMINOPHEN TAB 500 MG TAB PO PRN; -DEXAMETHASONE SOD PHOSPHATE 4 MG/ML 1 ML VIAL IV ONE; +LACTATED RINGERS 1,000 ML IV SCH; -MELOXICAM 7.5 MG TAB PO PRN; -ONDANSETRON 4 MG/2 ML VIAL IVP ONE; -TRANEXAMIC ACID 1,000 MG in SODIUM CHLORIDE 0.9% 100 ML IVPB PRN
[2021-05-31 10:22] VITALS: TEMP 97.3
[2021-05-31] MEDS ORDERED: PROPOFOL 10 MG/ML 50 ML VIAL IV ONE (10:43)
[2021-05-31] MEDS ORDERED: LIDOCAINE 1% INJ 10MG/ML (20 ML MDV) ONE (10:43)
--- NOTE | 2021-05-31 10:55 | P.PCN ---
Date of Procedure: 05/31/21 Procedure(s) Performed: BRIEF HISTORY: Patient is a 81-year-old, pleasant, white female scheduled for an upper endoscopy as a part of evaluation of intermittent blood per stools for the last 2 weeks' duration. Recent hemoglobin was 13 g/dL. Stool occult blood was positive. She has been on aspirin and has been stopped a few days ago. PROCEDURE PERFORMED: Esophagogastroduodenoscopy with biopsy. PREOPERATIVE DIAGNOSIS: Melena of 2 weeks duration. IV sedation per anesthesia. PROCEDURE: After informed consent was obtained, the patient was brought into the endoscopy unit. IV sedation was administered by Anesthesia under continuous monitoring. Initially the Olympus GIF-140 video endoscope was inserted into the mouth. Esophagus intubated without any difficulty. It was gradually advanced into the stomach and duodenum and carefully examined. The bulb of the duodenum had mild duodenitis and the second part of the duodenum appeared normal. The scope at this time was withdrawn to the stomach, adequately insufflated with air, and upon careful examination, mucosa of the antrum, body, had scattered erosions and biopsies were done from this area. No ulcerations seen. Mucosa of the cardia and the fundus appeared normal. The scope was then withdrawn into the esophagus. The GE junction was located at 39 cm from the incisors. The esophagus appeared normal. There were no erosions or ulcerations seen and the patient tolerated the procedure well. IMPRESSION: 1. Multiple scattered erosions in the body and antrum of the stomach status post biopsy. 2. Mild duodenitis. RECOMMENDATIONS: The findings of this examination were discussed with the patient as well as her family. She was advised to follow with the biopsy results. Continue with omeprazole 20 mg daily and follow antireflux measures. Hold off on aspirin for 2 more weeks. She'll be seen in office in 2 weeks.
[2021-05-31 11:00] VITALS: RESP 16
[2021-05-31 11:35] VITALS: BP 126/51; PULSE 65
== END 2021-05-31 11:43 | disposition home or self-care (01) ==
LOC: ORWHC2ENDO 09:08
PROVIDERS: ATTEND Internal Medicine Gastroenterology
DX: R19.5 Other fecal abnormalities (principal); K29.50 Unspecified chronic gastritis without bleeding; K29.80 Duodenitis without bleeding; K25.9 Gastric ulcer, unspecified as acute or chronic, without hemorrhage or perforation; I10 Essential (primary) hypertension; E78.5 Hyperlipidemia, unspecified; I20.9 Angina pectoris, unspecified; Z79.82 Long term (current) use of aspirin; Z79.899 Other long term (current) drug therapy; Z88.5 Allergy status to narcotic agent
CPT/HCPCS: 88305; 43239; J2001; J2704

== ENCOUNTER → 2021-07-24 | Outpatient (CLI) | payer MEDICARE, OTHER ==
[~2021-07-24] MED LIST changes: -LACTATED RINGERS 1,000 ML IV SCH; +SODIUM CHLORIDE 0.9% 500 ML 500 ML in EMPTY BAG 1 BAG IV PRN; +ZOLEDRONIC ACID 5 MG in SODIUM CHLORIDE 0.9% 100 ML IV NR
[2021-07-24 14:04] VITALS: BP 123/64; PULSE 56; RESP 16; TEMP 98
== END ==
LOC: PROCWHC3 13:15
PROVIDERS: ATTEND Internal Medicine
DX: E83.52 Hypercalcemia (principal); Z88.5 Allergy status to narcotic agent
CPT/HCPCS: 96365; J3489

== ENCOUNTER → 2021-07-26 | Outpatient (CLI) | payer MEDICARE, OTHER ==
[2021-07-26 19:24] LABS: African American GFR (CKD) 31.5 (60.0-200.0); Albumin 4.1 g/dL (3.8-4.9); Albumin/Globulin Ratio 1.59 (1.60-3.17); Anion Gap 11.2 mmol/L (10.00-18.00); BUN/Creat Ratio 24.57 Ratio (12.00-20.00); Blood Urea Nitrogen 42.5 mg/dL (9.0-27.0); Calcium 10.1 mg/dL (8.7-10.3); Carbon Dioxide 25.2 mmol/L (20.0-27.5); Globulin 2.6 g/dL (1.6-3.3); Non-African American GFR(CKD) 27.2 (60.0-200.0); Total Bilirubin 0.6 mg/dL (0.30-1.20); Total Protein 6.6 g/dL (6.2-8.2)
== END | disposition home or self-care (01) ==
LOC: LABWHC1 10:10
PROVIDERS: ATTEND Internal Medicine
DX: N18.32 Chronic kidney disease, stage 3b (principal)
CPT/HCPCS: 36415; 80053

== ENCOUNTER → 2021-07-26 | Outpatient (CLI) | payer MEDICARE, OTHER ==
--- NOTE | 2021-07-29 10:43 | MM ---
Reason for exam: screening (asymptomatic). Last mammogram was performed 1 year and 1 month ago. History: Patient is postmenopausal. Benign stereotactic core biopsy of the left breast, January 10, 1999. Core biopsy of the left breast. Took hormonal contraceptives for 10 years beginning at age 35. Took estrogen for 12 years beginning at age 45. Physical Findings: A clinical breast exam by your physician is recommended on an annual basis and results should be correlated with mammographic findings. MG 3D Screening Mammo W/Cad Bilateral CC and MLO view(s) were taken. Prior study comparison: June 19, 2020, bilateral MG 3d screening mammo w/cad. June 10, 2018, bilateral MG 3d screening mammo w/cad. There are scattered fibroglandular densities. Finding: There are few typically benign round, diffuse/scattered and grouped calcifications in both breasts. Previous mammotome biopsy in the left breast. There is no discrete abnormality. ASSESSMENT: Benign, BI-RAD 2 RECOMMENDATION: Routine screening mammogram of both breasts in 1 year.
== END | disposition home or self-care (01) ==
LOC: RADMAMWWP 09:28
PROVIDERS: ATTEND Internal Medicine
DX: Z12.31 Encounter for screening mammogram for malignant neoplasm of breast (principal); Z78.0 Asymptomatic menopausal state
CPT/HCPCS: 77063; 77067

== ENCOUNTER 2021-08-28 14:20 | Inpatient (IN) | payer MEDICARE, OTHER ==
[2021-08-28] MEDS ORDERED: SODIUM CHLORIDE 0.9% 1,000 ML IV STA (14:43)
[2021-08-28] MEDS ORDERED: ONDANSETRON 4 MG/2 ML VIAL IVP STA (14:43)
--- NOTE | 2021-08-28 14:50 | ED ---
General Adult HPI - General Chief complaint: Nausea/Vomiting/Diarrhea Stated complaint: vomiting Time Seen by Provider: 08/28/21 14:30 Source: patient, RN notes reviewed, old records reviewed Mode of arrival: ambulatory Limitations: no limitations - History of Present Illness Initial comments: This is an 81-year-old female presents emergency Department complaining that she's been vomiting for the last 6 days. Patient denies any abdominal pain. Patient denies any diarrhea. Patient denies any dysuria hematuria urinary frequency. Patient denies any fever chills or cough per patient denies any chest pain difficult breathing shortness of breath. Patient denies headache patient denies numbness weakness. Patient denies any lightheadedness or dizz iness. - Related Data Home Medications Medication Instructions Recorded Confirmed Losartan Potassium [Cozaar] 100 mg PO DAILY 01/27/14 08/28/21 Atorvastatin [Lipitor] 20 mg PO HS 02/05/17 08/28/21 Isosorbide Mononitrate [Isosorbide 30 mg PO DAILY 02/05/17 08/28/21 Mononitrate ER] Magnesium 250 mg PO HS 02/05/17 08/28/21 Metoprolol Tartrate [Lopressor] 25 mg PO DAILY 02/05/17 08/28/21 Travoprost [Travatan Z 0.004%] 1 drop BOTH EYES HS 02/05/17 08/28/21 hydroCHLOROthiazide 25 mg PO Q48H 10/10/18 08/28/21 Spironolactone [Aldactone] 12.5 mg PO DAILY 07/20/20 08/28/21 Donepezil [Aricept] 5 mg PO DAILY 08/28/21 08/28/21 buPROPion XL [Wellbutrin XL] 150 mg PO DAILY 08/28/21 08/28/21 Allergies Allergy/AdvReac Type Severity Reaction Status Date / Time codeine Allergy Hallucinations, Verified 08/28/21 16:06 "makes me loopy" Review of Systems ROS Statement: Those systems with pertinent positive or pertinent negative responses have been documented in the HPI. ROS Other: All systems not noted in ROS Statement are negative. Past Medical History Past Medical History: Chest Pain / Angina, Eye Disorder, Hyperlipidemia, Hypertension Additional Past Medical History / Comment(s): GLAUCOMA. SPOUSE STATES SHE IS GETTING FORGETFUL. History of Any Multi-Drug Resistant Organisms: None Reported Past Surgical History: Hysterectomy, Orthopedic Surgery Additional Past Surgical History / Comment(s): 10/16/20 RIGHT ROTATOR CUFF REPAIR. RT FOOT BUNIONECTOMY, LEFT BREAST BX Past Anesthesia/Blood Transfusion Reactions: Postoperative Nausea & Vomiting (PONV) Past Psychological History: No Psychological Hx Reported Smoking Status: Never smoker Past Alcohol Use History: None Reported Past Drug Use History: None Reported - Past Family History Mother Additional Family Medical History / Comment(s): MOTHER, CABG AND PACEMAKER Son(s) Family Medical History: Cancer General Exam - General Exam Comments Initial Comments: GENERAL: Patient is well-developed and well-nourished. Patient is nontoxic and well- hydrated and is in no acute distress. ENT: Neck is soft and supple. No significant lymphadenopathy is noted. Oropharynx is clear. Moist mucous membranes. Neck has full range of motion without eliciting any pain. EYES: The sclera were anicteric and conjunctiva were pink and moist. Extraocular movements were intact and pupils were equal round and reactive to light. Eyelids were unremarkable. PULMONARY: Unlabored respirations. Good breath sounds bilaterally. No audible rales rhonchi or wheezing was noted. CARDIOVASCULAR: There is a regular rate and rhythm without any murmurs gallops or rubs. ABDOMEN: Soft and nontender with normal bowel sounds. SKIN: Skin is clear with no lesions or rashes and otherwise unremarkable. NEUROLOGIC: Patient is alert and oriented x3. Cranial nerves II through XII are grossly intact. Motor and sensory are also intact. Normal speech, volume and content. Symmetrical smile. MUSCULOSKELETAL: Normal extremities with adequate strength and full range of motion. No lower extremity swelling or edema. No calf tenderness. LYMPHATICS: No significant lymphadenopathy is noted PSYCHIATRIC: Normal psychiatric evaluation. Limitations: no limitations Course Vital Signs 08/28/21 08/28/21 08/28/21 14:24 14:26 15:26 Temperature 97.8 F Pulse Rate 63 52 L 48 L Respiratory 18 18 18 Rate Blood Pressure 102/76 134/47 137/67 O2 Sat by Pulse 98 100 97 Oximetry Medical Decision Making - Medical Decision Making Ultrasound showed no acute findings that would cause pancreatitis. I spoke with some physician they agreed to admit the patient admitted the patient wrote admitting orders. - Lab Data Result diagrams: 08/28/21 14:47 06/08/22 14:47 Lab Results 08/28/21 08/28/21 08/28/21 Range/Units 13:07 14:47 14:47 WBC 9.2 (3.8-10.6) k/uL RBC 4.72 (3.80-5.40) m/uL Hgb 14.8 (11.4-16.0) gm/dL Hct 43.6 (34.0-46.0) % MCV 92.4 (80.0-100.0) fL MCH 31.3 (25.0-35.0) pg MCHC 33.9 (31.0-37.0) g/dL RDW 12.2 (11.5-15.5) % Plt Count 277 (150-450) k/uL MPV 8.9 Neutrophils % 85 % Lymphocytes % 8 % Monocytes % 4 % Eosinophils % 1 % Basophils % 1 % Neutrophils # 7.8 H (1.3-7.7) k/uL Lymphocytes # 0.8 L (1.0-4.8) k/uL Monocytes # 0.4 (0-1.0) k/uL Eosinophils # 0.1 (0-0.7) k/uL Basophils # 0.1 (0-0.2) k/uL Sodium 135 L (137-145) mmol/L Potassium 3.2 L (3.5-5.1) mmol/L Chloride 98 (98-107) mmol/L Carbon Dioxide 27 (22-30) mmol/L Anion Gap 10 mmol/L BUN 73 H (7-17) mg/dL Creatinine 2.27 H (0.52-1.04) mg/dL Est GFR (CKD-EPI)AfAm 23 (>60 ml/min/1.73 sqM) Est GFR (CKD-EPI)NonAf 20 (>60 ml/min/1.73 sqM) Glucose 157 H (74-99) mg/dL Calcium 9.8 (8.4-10.2) mg/dL Total Bilirubin 0.8 (0.2-1.3) mg/dL AST 36 (14-36) U/L ALT 22 (4-34) U/L Alkaline Phosphatase 91 (38-126) U/L Total Protein 7.0 (6.3-8.2) g/dL Albumin 4.5 (3.5-5.0) g/dL Amylase 240 H (30-110) U/L Lipase 1061 H (23-300) U/L Urine Color Light Yellow Urine Appearance Clear (Clear) Urine pH 7.5 (5.0-8.0) Ur Specific [place] 1.009 (1.001-1.035) Urine Protein 1+ H (Negative) Urine Glucose (UA) Negative (Negative) Urine Ketones Negative (Negative) Urine Blood Negative (Negative) Urine Nitrite Negative (Negative) Urine Bilirubin Negative (Negative) Urine Urobilinogen <2.0 (<2.0) mg/dL Ur Leukocyte Esterase Large H (Negative) Urine RBC 1 (0-5) /hpf Urine WBC 32 H (0-5) /hpf Ur Squamous Epith Cells 2 (0-4) /hpf Hyaline Casts 10 H (0-2) /lpf Urine Mucus Rare H (None) /hpf Disposition Clinical Impression: Pancreatitis, Renal insufficiency Disposition: ADMITTED IP TO THIS [facility] Referrals: Caden Castillo MD [Primary Care Provider] - 1-2 days Time of Disposition: 17:21
[2021-08-28 15:02] LABS: Basophils # (A) 0.1 k/uL (0-0.2); Basophils % (A) 1 %; Eosinophils # (A) 0.1 k/uL (0-0.7); Eosinophils % (A) 1 %; HCT 43.6 % (34.0-46.0); HGB 14.8 gm/dL (11.4-16.0); Lymphocytes # (A) 0.8 k/uL (1.0-4.8); Lymphocytes % (A) 8 %; MCH 31.3 pg (25.0-35.0); MCHC 33.9 g/dL (31.0-37.0); MCV 92.4 fL (80.0-100.0); Mean Platelet Volume 8.9; Monocytes # (A) 0.4 k/uL (0-1.0); Monocytes % (A) 4 %; Neutrophils # (A) 7.8 k/uL (1.3-7.7); Neutrophils % (A) 85 %; Platelet Count 277 k/uL (150-450); RBC 4.72 m/uL (3.80-5.40); RDW 12.2 % (11.5-15.5); WBC 9.2 k/uL (3.8-10.6)
[2021-08-28 15:09] LABS: Albumin 4.5 g/dL (3.5-5.0); Calcium 9.8 mg/dL (8.4-10.2); Potassium 3.2 mmol/L (3.5-5.1); Total Bilirubin 0.8 mg/dL (0.2-1.3)
[2021-08-28 15:27] LABS: Appearance,Urine Clear (Clear); Bilirubin,Urine Negative (Negative); Blood,Urine Negative (Negative); Color,Urine Light Yellow; Glucose,Urine (UA) Negative (Negative); Hyaline Casts,Urine 10 /lpf (0-2); Ketones,Urine Negative (Negative); Leukocyte Esterase,Urine Large (Negative); Mucus,Urine Rare /hpf; Nitrite,Urine Negative (Negative); PH, Urine 7.5 (5.0-8.0); Protein,Urine 1+ (Negative); RBC,Urine 1 /hpf (0-5); Specific Gravity,Urine 1.009 (1.001-1.035); Squamous Epithelial Cell,Urine 2 /hpf (0-4); Urobilinogen,Urine <2.0 mg/dL (<2.0); WBC,Urine 32 /hpf (0-5)
[2021-08-28] MEDS ORDERED: SODIUM CHLORIDE 0.9% 1,000 ML IV ONE (17:23)
[2021-08-28] MEDS ORDERED: ONDANSETRON 4 MG/2 ML VIAL IVP PRN (17:24)
--- NOTE | 2021-08-28 21:31 | US ---
EXAMINATION TYPE: US gallbladder DATE OF EXAM: 08/28/2021 COMPARISON: CLINICAL HISTORY: Pancreatitis. Abnormal labs. N/V EXAM MEASUREMENTS: Liver Length: 9.6 cm Gallbladder Wall: 0.2 cm CBD: 0.7 cm Right Kidney: 8.4 x 4.4 x 4.1 cm Pancreas: Echogenic in appearance Liver: wnl Gallbladder: Lesion adjacent to wall, possible polyp= 0.3 x 0.3 x 0.2 cm Evidence for sonographic Ramos's sign: neg CBD: wnl Right Kidney: Lateral lower pole cystic lesion = 3.4 x 3.6 x 3.8 cm IMPRESSION: Probable gallbladder polyp. No definite gallstone. No dilated ducts. No discrete liver mass.
--- NOTE | 2021-08-29 00:04 | P.HPIM ---
History of Present Illness H&P Date: 08/28/21 The patient is an 81-year-old female with a PMH of hypertension and hyperlipidemia who presents to the emergency room with complaints of abdominal pain, nausea, vomiting. The patient reports that over the past 1 week, experiencing epigastric abdominal discomfort, aching in nature, nonradiating, with associated nausea and vomiting. She has been unable to tolerate most foods during this time but states that her symptoms have now gradually improved, with last episode of vomiting earlier this morning. She denies any prior history of such symptoms. Denies history of gallbladder or pancreatic issues. Denies alcohol use or any traumas. Denies fevers, chills, chest pain, shortness of breath, diarrhea. Laboratory evaluation in the emergency room is remarkable for lipase of 1061, amylase 240, BUN 73, creatinine 2.27 (up from 1.7 on 08/11), sodium 135, potassium 3.2. Gallbladder ultrasound revealed a probable gallbladder polyp no other abnormalities. Review of systems: Pertinent positives and negatives as discussed in HPI, a complete review of systems was performed and all other systems are negative. Physical examination: General: non toxic, no distress, appears at stated age, normal weight Derm: no unusual rashes/lesions, warm Head: atraumatic, normocephalic, symmetric Eyes: EOMI, no lid lag, anicteric sclera, pupils equal round reactive to light ENT: Nose and ears atraumatic Neck: No cervical lymphadenopathy, trachea midline, supple Mouth: no lip lesion, mucus membranes moist Cardiovascular: S1S2 reg, no murmur, positive dorsalis pedis pulse bilateral, no edema Lungs: CTA bilateral, no rhonchi, no rales, no accessory muscle use Abdominal: soft, minimal epigastric tenderness, no guarding Ext: muscle strength 5 out of 5 in all 4 extremities grossly, no gross muscle atrophy, no contractures, Neuro: CN II-XI grossly intact, no gross focal neuro deficits Psych: Alert, oriented, appropriate affect Assessment/plan Pancreatitis, unclear etiology -GI consulted -IV fluids -Pain control -Nothing by mouth for now AYANA on chronic kidney disease -Continue with IV fluids -Likely due to poor oral intake -Hold home losartan for now Hypokalemia -Replace and monitor Chronic conditions: Hypertension, hyperlipidemia -Continue with home meds -Hold home diuretics DVT prophylaxis -Heparin subcu The patient is admitted with an anticipated greater than 2 midnight stay for batsheva luation of pancreatitis. CODE STATUS: Full Code Discussed with: Patient Anticipated discharge date: 08/[address]: Home Past Medical History Past Medical History: Chest Pain / Angina, Eye Disorder, Hyperlipidemia, Hypertension Additional Past Medical History / Comment(s): GLAUCOMA. SPOUSE STATES SHE IS GETTING FORGETFUL. History of Any Multi-Drug Resistant Organisms: None Reported Past Surgical History: Hysterectomy, Orthopedic Surgery Additional Past Surgical History / Comment(s): 10/16/20 RIGHT ROTATOR CUFF REPAIR. RT FOOT BUNIONECTOMY, LEFT BREAST BX Past Anesthesia/Blood Transfusion Reactions: Postoperative Nausea & Vomiting (PONV) Past Psychological History: No Psychological Hx Reported Smoking Status: Never smoker Past Alcohol Use History: None Reported Past Drug Use History: None Reported - Past Family History Mother Additional Family Medical History / Comment(s): MOTHER, CABG AND PACEMAKER Son(s) Family Medical History: Cancer Medications and Allergies Home Medications Medication Instructions Recorded Confirmed Type Losartan Potassium [Cozaar] 100 mg PO DAILY 01/27/14 08/28/21 History Atorvastatin [Lipitor] 20 mg PO HS 02/05/17 08/28/21 History Isosorbide Mononitrate [Isosorbide 30 mg PO DAILY 02/05/17 08/28/21 History Mononitrate ER] Magnesium 250 mg PO HS 02/05/17 08/28/21 History Metoprolol Tartrate [Lopressor] 25 mg PO DAILY 02/05/17 08/28/21 History Travoprost [Travatan Z 0.004%] 1 drop BOTH EYES HS 02/05/17 08/28/21 History hydroCHLOROthiazide 25 mg PO Q48H 10/10/18 08/28/21 History Spironolactone [Aldactone] 12.5 mg PO DAILY 07/20/20 08/28/21 History Donepezil [Aricept] 5 mg PO DAILY 08/28/21 08/28/21 History buPROPion XL [Wellbutrin XL] 150 mg PO DAILY 08/28/21 08/28/21 History Allergies Allergy/AdvReac Type Severity Reaction Status Date / Time codeine Allergy Hallucinations, Verified 08/28/21 16:06 "makes me loopy" Physical Exam Vitals: Vital Signs Temp Pulse Resp BP Pulse Ox 08/28/21 19:34 98.1 F 55 L 18 149/45 99 08/28/21 15:26 48 L 18 137/67 97 08/28/21 14:26 52 L 18 134/47 100 08/28/21 14:24 97.8 F 63 18 102/76 98 Intake and Output 08/28/21 08/28/21 08/28/21 06:59 14:59 22:59 Other: Weight 56.699 kg Results CBC & Chem 7: 08/28/21 14:47 08/28/21 14:47 Labs: Abnormal Lab Results - Last 24 Hours (Table) 08/28/21 08/28/21 08/28/21 Range/Units 13:07 14:47 14:47 Neutrophils # 7.8 H (1.3-7.7) k/uL Lymphocytes # 0.8 L (1.0-4.8) k/uL Sodium 135 L (137-145) mmol/L Potassium 3.2 L (3.5-5.1) mmol/L BUN 73 H (7-17) mg/dL Creatinine 2.27 H (0.52-1.04) mg/dL Glucose 157 H (74-99) mg/dL Amylase 240 H (30-110) U/L Lipase 1061 H (23-300) U/L Urine Protein 1+ H (Negative) Ur Leukocyte Esterase Large H (Negative) Urine WBC 32 H (0-5) /hpf Hyaline Casts 10 H (0-2) /lpf Urine Mucus Rare H (None) /hpf
[2021-08-29] MEDS: LATANOPROST 0.005% OPHTH DROPS 2.5 ML BTL BOTH EYES SCH ×2 (00:51→21:00)
[2021-08-29] MEDS ORDERED: POTASSIUM CHLORIDE ER 20 MEQ TAB.ER PO STA (02:57)
[2021-08-29] MEDS: DONEPEZIL 5 MG TAB PO SCH (08:41)
[2021-08-29] MEDS: ISOSORBIDE MONONITRATE ER 30 MG TAB.ER.24H PO SCH (08:41)
[2021-08-29] MEDS: buPROPion XL 150 MG TAB.ER.24H PO SCH (08:41)
[2021-08-29] MEDS: SODIUM CHLORIDE 0.9% 1,000 ML IV SCH ×2 (08:41→21:01)
[2021-08-29] MEDS: METOPROLOL TARTRATE 25 MG TAB PO SCH (08:41)
--- NOTE | 2021-08-29 08:57 | P.PN ---
Subjective Progress Note Date: 08/29/21 Principal diagnosis: N/V Patient is an 81-year-old female with a PMH of hypertension and hyperlipidemia who presents to the emergency room with complaints of abdominal pain, nausea, vomiting. In the ER she underwent an extensive evaluation. Laboratory analysis revealed lipase of 1061, amylase 240, BUN 73, creatinine 2.27 (up from 1.7 on 08/11), sodium 135, potassium 3.2. Gallbladder ultrasound revealed a probable gallbladder polyp no other abnormalities. For further monitoring. Gastroenterology was consulted. Patient seen and examined at bedside. She has not had any other nausea or vomiting since admission. She denies any abdominal pain at this time. Denies any chest pain or shortness of breath. General: non toxic, no distress, appears at stated age Derm: warm, dry Head: atraumatic, normocephalic, symmetric Eyes: EOMI, no lid lag, anicteric sclera Mouth: no lip lesion, mucus membranes dry Cardiovascular: S1S2 reg, no murmur, positive posterior tibial pulse bilateral, Lungs: CTA bilateral, no rhonchi, no rales , no accessory muscle use Abdominal: soft, nontender to palpation, no guarding, no appreciable organomegaly Ext: no gross muscle atrophy, no edema, no contractures Neuro: CN II-XI grossly intact, no focal neuro deficits Psych: Alert, oriented, appropriate affect Assessment/Plan: Acute pancreatitis with intractable nasuea and vomiting. - IV fluids - pain control - await GI recommendations - start on clear liquid diet Gallbladder Polyps - outpatient evaluation AYANA on CKD III - IV fluids - avoid nephrotoxic agents - hold cozaar/hctz/aldactone HTN - resume BB - hold meds as above - follow BP Await AM labs DVT prophylaxis: Heparin Discussed with: Patient Anticipated discharge: in 1-[address]: home A total of 27 minutes was spent on the care of this complex patient more than 50% of the time was spent in counseling and care coordination. Objective - Vital Signs Vital signs: Vital Signs Temp 98.2 F 08/29/21 03:44 Pulse 74 08/29/21 08:43 Resp 16 08/29/21 03:44 BP 127/73 08/29/21 08:43 Pulse Ox 98 08/29/21 03:44 FiO2 Intake & Output 08/28/21 08/29/21 08/29/21 18:59 06:59 18:59 Weight 56.699 kg 56.699 kg - Labs CBC & Chem 7: 08/28/21 14:47 08/28/21 14:47 Labs: Abnormal Lab Results - Last 24 Hours (Table) 08/28/21 08/28/21 08/28/21 Range/Units 13:07 14:47 14:47 Neutrophils # 7.8 H (1.3-7.7) k/uL Lymphocytes # 0.8 L (1.0-4.8) k/uL Sodium 135 L (137-145) mmol/L Potassium 3.2 L (3.5-5.1) mmol/L BUN 73 H (7-17) mg/dL Creatinine 2.27 H (0.52-1.04) mg/dL Glucose 157 H (74-99) mg/dL Amylase 240 H (30-110) U/L Lipase 1061 H (23-300) U/L Urine Protein 1+ H (Negative) Ur Leukocyte Esterase Large H (Negative) Urine WBC 32 H (0-5) /hpf Hyaline Casts 10 H (0-2) /lpf Urine Mucus Rare H (None) /hpf Microbiology - Last 24 Hours (Table) 08/28/21 13:07 Urine Culture - Preliminary Urine,Voided
[2021-08-29] MEDS ORDERED: LOSARTAN 50 MG TAB PO SCH (09:00)
[2021-08-29 09:23] LABS: HCT 42.7 % (34.0-46.0); HGB 13.4 gm/dL (11.4-16.0); MCHC 31.3 g/dL (31.0-37.0); MCV 95.8 fL (80.0-100.0); Mean Platelet Volume 9.9; Platelet Count 214 k/uL (150-450); RBC 4.46 m/uL (3.80-5.40); RDW 11.9 % (11.5-15.5); WBC 11.7 k/uL (3.8-10.6)
[2021-08-29 09:24] LABS: ALT 21 U/L (4-34); AST 34 U/L (14-36); African American GFR (CKD) 27 (>60 ml/min/1.73 sqM); Albumin/Globulin Ratio 1.6; Alkaline Phosphatase 77 U/L (38-126); Anion Gap 10 mmol/L; Blood Urea Nitrogen 56 mg/dL (7-17); Calcium 8.8 mg/dL (8.4-10.2); Carbon Dioxide 25 mmol/L (22-30); Chloride 105 mmol/L (98-107); Globulin 2.5 g/dL; Glucose 82 mg/dL (74-99); Lipase 950 U/L (23-300); Non-African American GFR(CKD) 24 (>60 ml/min/1.73 sqM); Potassium 3.6 mmol/L (3.5-5.1); Sodium 140 mmol/L (137-145); Total Bilirubin 0.7 mg/dL (0.2-1.3); Total Protein 6.5 g/dL (6.3-8.2)
--- NOTE | 2021-08-29 13:19 | P.CONS ---
History of Present Illness - Reason for Consult Consult date: 08/29/21 Pancreatitis Requesting physician: Petra Morales - Chief Complaint Abdominal pain - History of Present Illness This a pleasant 81-year-old female who presented to the emergency department yesterday with complaints of abdominal pain associated with nausea and vomiting. She has a past medical history of hypertension and hyperlipidemia. She states over last 1 week she had been experiencing epigastric abdominal discomfort achy and crampy in nature and was associated with some nausea and vomiting. Been difficult to tolerate solid foods. Symptoms have been improving over the last couple days. Her last episode of vomiting was yesterday. She was noted to have elevated amylase and lipase consistent with pancreatitis on admission. She had a ultrasound of the gallbladder that showed no acute findings. Admitting labs WBC 9.2 hemoglobin 14.8 hematocrit 43 platelet count 277,000 sodium 135 potassium 3.2 BUN 73 creatinine 2.27 glucose 157 total bilirubin 0.8 AST 36 ALT 22 alkaline phosphatase 91 amylase 240 lipase 1061. Today she denies any abdominal pain, no nausea or vomiting. She is tolerating a clear liquid diet. Repeat lipase 950, LFTs are within normal limits. She's been afebrile. She denies any previous history of pancreatitis. No history of gallbladder disease. Denies any alcohol use, she does state that she was recently put on Aricept for memory loss about 2 weeks ago. Review of Systems REVIEW OF SYSTEMS: CARDIOPULMONARY: No chest pain or shortness of breath. Gastrointestinal: Abdominal pain and cramping, diffuse, associated with nausea and vomiting. Now improved. . No hematemesis, coffee-ground emesis. No rectal bleeding, or melena. GENITOURINARY: No dysuria or hematuria. MUSCULOSKELETAL: Reports normal range of motion., Joint pain. SKIN: No rashes. No jaundice. ENDOCRINE: No chills, fevers. No excessive weight gain or loss. No polydipsia or polyuria. PSYCHIATRIC: Unremarkable. NEUROLOGY: No change in mental status. Denies dizziness, headache. ENT: Vision unremarkable. CONSTITUTIONAL: No recent weight loss. No fever, chills, night sweats. Past Medical History Past Medical History: Chest Pain / Angina, Eye Disorder, Hyperlipidemia, Hyperte nsion Additional Past Medical History / Comment(s): GLAUCOMA. SPOUSE STATES SHE IS GETTING FORGETFUL. History of Any Multi-Drug Resistant Organisms: None Reported Past Surgical History: Hysterectomy, Orthopedic Surgery Additional Past Surgical History / Comment(s): 10/16/20 RIGHT ROTATOR CUFF REPAIR. RT FOOT BUNIONECTOMY, LEFT BREAST BX Past Anesthesia/Blood Transfusion Reactions: Postoperative Nausea & Vomiting (PONV) Past Psychological History: No Psychological Hx Reported Smoking Status: Never smoker Past Alcohol Use History: None Reported Past Drug Use History: None Reported - Past Family History Mother Additional Family Medical History / Comment(s): MOTHER, CABG AND PACEMAKER Son(s) Family Medical History: Cancer Medications and Allergies Home Medications Medication Instructions Recorded Confirmed Type Losartan Potassium [Cozaar] 100 mg PO DAILY 01/27/14 08/28/21 History Atorvastatin [Lipitor] 20 mg PO HS 02/05/17 08/28/21 History Isosorbide Mononitrate [Isosorbide 30 mg PO DAILY 02/05/17 08/28/21 History Mononitrate ER] Magnesium 250 mg PO HS 02/05/17 08/28/21 History Metoprolol Tartrate [Lopressor] 25 mg PO DAILY 02/05/17 08/28/21 History Travoprost [Travatan Z 0.004%] 1 drop BOTH EYES HS 02/05/17 08/28/21 History hydroCHLOROthiazide 25 mg PO Q48H 10/10/18 08/28/21 History Spironolactone [Aldactone] 12.5 mg PO DAILY 07/20/20 08/28/21 History Donepezil [Aricept] 5 mg PO DAILY 08/28/21 08/28/21 History buPROPion XL [Wellbutrin XL] 150 mg PO DAILY 08/28/21 08/28/21 History Allergies Allergy/AdvReac Type Severity Reaction Status Date / Time codeine Allergy Hallucinations, Verified 08/28/21 16:06 "makes me loopy" Physical Exam Vitals: Vital Signs Temp Pulse Pulse Resp BP BP Pulse Ox 08/29/21 08:43 74 127/73 08/29/21 03:44 98.2 F 69 16 124/66 98 08/28/21 23:50 97.9 F 57 L 16 150/63 100 08/28/21 23:24 98.4 F 63 16 124/34 08/28/21 19:34 98.1 F 55 L 18 149/45 99 08/28/21 15:26 48 L 18 137/67 97 08/28/21 14:26 52 L 18 134/47 100 08/28/21 14:24 97.8 F 63 18 102/76 98 Intake and Output 08/28/21 08/29/21 08/29/21 22:59 06:59 14:59 Other: Weight 56.699 kg General appearance: The patient is alert, oriented, appears in no acute distress. HET: Head is normocephalic and atraumatic. Conjunctiva pink. Sclera anicteric. Neck: Supple without lymphadenopathy. Trachea midline. Heart: S1 S2. Regular rate and rhythm. Lungs: Clear to auscultation. Abdomen: Soft, nontender, nondistended with bowel sounds. No guarding or rigidity. Skin: No rashes. No jaundice. Extremities: Normal skin color and turgor. No pedal edema. Neurological: No focal deficits. Alert and oriented x3. Results CBC & Chem 7: 08/29/21 08:01 08/29/21 08:01 Labs: Abnormal Lab Results - Last 24 Hours (Table) 08/28/21 08/28/21 08/28/21 Range/Units 13:07 14:47 14:47 WBC (3.8-10.6) k/uL Neutrophils # 7.8 H (1.3-7.7) k/uL Lymphocytes # 0.8 L (1.0-4.8) k/uL Sodium 135 L (137-145) mmol/L Potassium 3.2 L (3.5-5.1) mmol/L BUN 73 H (7-17) mg/dL Creatinine 2.27 H (0.52-1.04) mg/dL Glucose 157 H (74-99) mg/dL Amylase 240 H (30-110) U/L Lipase 1061 H (23-300) U/L Urine Protein 1+ H (Negative) Ur Leukocyte Esterase Large H (Negative) Urine WBC 32 H (0-5) /hpf Hyaline Casts 10 H (0-2) /lpf Urine Mucus Rare H (None) /hpf 08/29/21 08/29/21 Range/Units 08:01 08:01 WBC 11.7 H (3.8-10.6) k/uL Neutrophils # (1.3-7.7) k/uL Lymphocytes # (1.0-4.8) k/uL Sodium (137-145) mmol/L Potassium (3.5-5.1) mmol/L BUN 56 H (7-17) mg/dL Creatinine 1.95 H (0.52-1.04) mg/dL Glucose (74-99) mg/dL Amylase (30-110) U/L Lipase 950 H (23-300) U/L Urine Protein (Negative) Ur Leukocyte Esterase (Negative) Urine WBC (0-5) /hpf Hyaline Casts (0-2) /lpf Urine Mucus (None) /hpf Microbiology - Last 24 Hours (Table) 08/28/21 13:07 Urine Culture - Preliminary Urine,Voided Comments: Gallbladder ultrasound: Probable gallbladder polyp. No definite gallstone. No dilated ducts. No discrete liver mass. Pancreas is echogenic in appearance. Assessment and Plan (1) Pancreatitis Narrative/Plan: 1-year-old female presented to the emergency department with complaints of abdominal pain and cramping over the last 1 week duration with associated nausea and vomiting. She was noted to have labs consistent with acute pancreatitis. LFTs were all within normal limits. Gallbladder ultrasound shows no concerns with gallstones. No previous history of pancreatitis, no history of alcohol abuse in the past or present, only new medication that she can recall his Aricept within the last 2 weeks. However that medication is likely cause of acute pancreatitis. At this time unknown etiology for acute pancreatitis. May consider medication induced. Triglycerides, anion IgG4 ordered. Symptoms are improved. Current Visit: Yes Status: Acute Code(s): K85.90 - ACUTE PANCREATITIS WITHOUT NECROSIS OR INFECTION, UNSP SNOMED Code(s): 05860508 (2) Renal insufficiency Current Visit: Yes Status: Acute Code(s): N28.9 - DISORDER OF KIDNEY AND URETER, UNSPECIFIED SNOMED Code(s): 583568719 Plan: 1. Continue symptomatic and supportive care 2. May advance to clear liquid diet and then advance diet as tolerated 3. Gallbladder ultrasound reviewed 4. Antiemetics as needed 5. Pain medication as needed 6. Encourage ambulation 7. Triglycerides, IgG 4, and MICKI ordered 8. Repeat CBC, CMP, lipase tomorrow For this consultation, we will continue to follow. Dr. Alex Mirza I agree with the dictator's note, documented as a scribe by Anitha Valles.
[2021-08-29] MEDS ORDERED: ATORVASTATIN 20 MG TAB PO SCH (21:00)
[2021-08-30] MEDS: METOPROLOL TARTRATE 25 MG TAB PO SCH (08:34)
[2021-08-30] MEDS: DONEPEZIL 5 MG TAB PO SCH (08:34)
[2021-08-30] MEDS: buPROPion XL 150 MG TAB.ER.24H PO SCH (08:34)
[2021-08-30] MEDS: ISOSORBIDE MONONITRATE ER 30 MG TAB.ER.24H PO SCH (08:34)
[2021-08-30 13:34] VITALS: BP 108/57; PULSE 55; RESP 16; TEMP 97.6
--- NOTE | 2021-08-30 14:18 | P.PN ---
Subjective Progress Note Date: 08/30/21 Principal diagnosis: abdominal pain, pancreatitis This a pleasant 81-year-old female who presented to the emergency department yesterday with complaints of abdominal pain associated with nausea and vomiting. She has a past medical history of hypertension and hyperlipidemia. She states over last 1 week she had been experiencing epigastric abdominal discomfort achy and crampy in nature and was associated with some nausea and vomiting. Been difficult to tolerate solid foods. Symptoms have been improving over the last couple days. Her last episode of vomiting was yesterday. She was noted to have elevated amylase and lipase consistent with pancreatitis on admission. She had a ultrasound of the gallbladder that showed no acute findings. Admitting labs WBC 9.2 hemoglobin 14.8 hematocrit 43 platelet count 277,000 sodium 135 potassium 3.2 BUN 73 creatinine 2.27 glucose 157 total bilirubin 0.8 AST 36 ALT 22 alkaline phosphatase 91 amylase 240 lipase 1061. 08/30/2021. Patient is seen and examined as a follow-up. She denies any abdominal pain. She has no nausea or vomiting. Lipase improved yesterday to 548 down [id number]. Lipase ordered today however are currently pending. She's been tolerating liquid diet. We'll advance to low fat low fiber diet. Triglyce rides 117. MICKI negative, IgG4 pending. Objective - Vital Signs Vital signs: Vital Signs Temp 98.3 F 08/30/21 05:30 Pulse 72 08/30/21 08:35 Resp 18 08/30/21 05:30 BP 111/60 08/30/21 08:35 Pulse Ox 97 08/30/21 05:30 FiO2 Intake & Output 08/29/21 08/30/21 08/30/21 18:59 06:59 18:59 Intake Total 240 Balance 240 Intake: Oral 240 Other: Voiding Method Toilet Toilet # Voids 3 1 - Exam General appearance: The patient is alert, oriented, appears in no acute distress. HET: Head is normocephalic and atraumatic. Conjunctiva pink. Sclera anicteric. Neck: Supple without lymphadenopathy. Abdomen: Soft, nontender, nondistended with bowel sounds. No guarding or rigidity. Extremities: Normal skin color and turgor. No pedal edema Skin: No rashes, no jaundice Neurological: No focal deficits. Alert and oriented x 3. - Labs CBC & Chem 7: 08/29/21 08:01 08/29/21 08:01 Labs: Microbiology - Last 24 Hours (Table) 08/28/21 13:07 Urine Culture - Final Urine,Voided Assessment and Plan (1) Pancreatitis Narrative/Plan: 1-year-old female presented to the emergency department with complaints of ab dominal pain and cramping over the last 1 week duration with associated nausea and vomiting. She was noted to have labs consistent with acute pancreatitis. LFTs were all within normal limits. Gallbladder ultrasound shows no concerns with gallstones. No previous history of pancreatitis, no history of alcohol abuse in the past or present, only new medication that she can recall his Aricept within the last 2 weeks. However that medication is likely cause of acute pancreatitis. At this time unknown etiology for acute pancreatitis. May consider medication induced. Triglycerides, anion IgG4 ordered. Symptoms are improved. Current Visit: Yes Status: Acute Code(s): K85.90 - ACUTE PANCREATITIS WITHOUT NECROSIS OR INFECTION, UNSP SNOMED Code(s): 33852620 (2) Renal insufficiency Current Visit: Yes Status: Acute Code(s): N28.9 - DISORDER OF KIDNEY AND URETER, UNSPECIFIED SNOMED Code(s): 363105799 Plan: 1. Continue symptomatic and supportive care 2. Advance to low-fat low fiber diet 3. Gallbladder ultrasound reviewed 4. Antiemetics as needed 5. Pain medication as needed 6. Encourage ambulation 7. Triglycerides, IgG 4, and MICKI ordered For this consultation,if patient can tolerate advanced diet she is cleared from gastroenterology for discharge. She can follow-up in the office and 2 weeks for lab results. Thank you for allowing us to participate in the care of the patient, the GI service will sign off, gastroenterology will not be available at the hospital this weekend. If further evaluation by gastroenterology is required the patient will need transfer as per the primary team's discretion. Dr. Alex Mirza I agree with the dictator's note, documented as a scribe by Anitha Valles.
--- NOTE | 2021-08-30 18:16 | P.DS ---
Providers Date of admission: 08/28/21 17:24 Attending physician: Petra Morales DO Consults: 08/29/21 00:02 Consult Physician Urgent Consulting Provider: Radha Mirza Consult Reason/Comments: pancreatitis Do you want consulting provider notified?: Yes Primary care physician: Caden Castillo MD Hospital Course: Discharge Diagnosis: Acute pancreatitis Intractable nausea and Gallbladder polyps AYANA on chronic kidney disease stage III HTN Hospital Course: Patient is an 81-year-old female with a PMH of hypertension and hyperlipidemia who presents to the emergency room with complaints of abdominal pain, nausea, vomiting. In the ER she underwent an extensive evaluation. Laboratory analysis revealed lipase of 1061, amylase 240, BUN 73, creatinine 2.27 (up from 1.7 on 08/11), sodium 135, potassium 3.2. Gallbladder ultrasound revealed a probable gallbladder polyp no other abnormalities. For further monitoring. Gastroenterology was consulted. They did draw IgG4 levels are pending at the time of discharge. Her abdominal pain resolved and she was tolerating a clear liquid diet. She was advanced to a bland diet and she tolerated this as well. Her renal function had improved to baseline. She is determined stable for discharge home with outpatient follow-up. Follow-up: , Dr. Mirza, Dr. Bartlett. [place] diet X 3 days and then advance. She will stay off ARB and HCTZ until seen by Dr. Castillo Patient seen and examined at bedside. Feeling well. Eating and drinking well. No additional nausea, vomiting, abdominal pain. Vital signs reviewed and stable. General: non toxic, no distress, appears at stated age Derm: warm, dry Head: atraumatic, normocephalic, symmetric Eyes: EOMI, no lid lag, anicteric sclera Mouth: no lip lesion, mucus membranes moist Cardiovascular: S1S2 reg, no murmur, positive posterior tibial pulse bilateral, Lungs: CTA bilateral, no rhonchi, no rales , no accessory muscle use Abdominal: soft, nontender to palpation, no guarding, no appreciable organomegaly Ext: no gross muscle atrophy, no edema, no contractures Neuro: CN II-XI grossly intact, no focal neuro deficits Psych: Alert, oriented, appropriate affect A total of 32 minutes of time were spent preparing this complex discharge summary. Patient was discharged on 08/30/21. Patient Condition at Discharge: Stable Plan - Discharge Summary New Discharge Prescriptions: Continue Travoprost [Travatan Z 0.004%] 1 drop BOTH EYES HS Metoprolol Tartrate [Lopressor] 25 mg PO DAILY Isosorbide Mononitrate [Isosorbide Mononitrate ER] 30 mg PO DAILY Atorvastatin [Lipitor] 20 mg PO HS buPROPion XL [Wellbutrin XL] 150 mg PO DAILY Donepezil [Aricept] 5 mg PO DAILY Discontinued Losartan Potassium [Cozaar] 100 mg PO DAILY Magnesium 250 mg PO HS hydroCHLOROthiazide 25 mg PO Q48H Spironolactone [Aldactone] 12.5 mg PO DAILY Discharge Medication List Atorvastatin [Lipitor] 20 mg PO HS 02/05/17 [History] Isosorbide Mononitrate [Isosorbide Mononitrate ER] 30 mg PO DAILY 02/05/17 [History] Metoprolol Tartrate [Lopressor] 25 mg PO DAILY 02/05/17 [History] Travoprost [Travatan Z 0.004%] 1 drop BOTH EYES HS 02/05/17 [History] Donepezil [Aricept] 5 mg PO DAILY 08/28/21 [History] buPROPion XL [Wellbutrin XL] 150 mg PO DAILY 08/28/21 [History] Follow up Appointment(s)/Referral(s): [facility], [NON-STAFF] - 1 Week Caden Castillo MD [Primary Care Provider] - 1-2 days Radha Mirza MD [STAFF PHYSICIAN] - 1 Week Vashti Wood DO [Doctor of Osteopathic Medicine] - 1 Week Patient Instructions/Handouts: Pancreatitis (DC) Activity/Diet/Wound Care/Special Instructions: Activity: as tolerated Diet: soft and bland diet for 3 days and then increase as tolerated. Stay hydrated Special Instructions: Have repeat kidney labs with Dr. Castillo next week. Stay off your spironolactone and hydrochlorothiazide until repeat labs You have 2 labs pending that will be reviewed when seen by Dr. Mirza You have a possible gallbladder polyp and Dr. Wood has been listed for follow- up Thank you for allowing us to care for you. We wish you well on your journey to better health. Discharge Disposition: HOME SELF-CARE
[2021-09-01 08:43] LABS: IgG Subclass 1 363.2 mg/dL (382.40-928.60); IgG Subclass 2 180.9 mg/dL (241.80-700.30); IgG Subclass 4 32.4 mg/dL (3.92-86.40)
== END 2021-08-30 16:15 | disposition home health service (06) | DRG 439 ==
LOC: EC 14:20 → 5NMEDONC 17:24
PROVIDERS: ADMIT Internal Medicine; ATTEND Internal Medicine
DX: K85.90 Acute pancreatitis without necrosis or infection, unspecified (principal); N17.9 Acute kidney failure, unspecified; N18.30 Chronic kidney disease, stage 3 unspecified; I12.9 Hypertensive chronic kidney disease with stage 1 through stage 4 chronic kidney disease, or unspecified chronic kidney disease; K82.4 Cholesterolosis of gallbladder; E78.5 Hyperlipidemia, unspecified; H40.9 Unspecified glaucoma; Z79.899 Other long term (current) drug therapy; Z90.710 Acquired absence of both cervix and uterus; Z87.42 Personal history of other diseases of the female genital tract; Z87.39 Personal history of other diseases of the musculoskeletal system and connective tissue; Z98.890 Other specified postprocedural states; Z82.49 Family history of ischemic heart disease and other diseases of the circulatory system; Z80.9 Family history of malignant neoplasm, unspecified; Z88.5 Allergy status to narcotic agent
CPT/HCPCS: 36415; 76705; 80053; 81001; 82150; 82787; 83690; 84478; 85025; 85027; 86038; 87086; 96361; 96374; 99285

== ENCOUNTER 2021-10-14 04:55 | Emergency (ER) | payer MEDICARE, OTHER ==
[2021-10-14 06:06] LABS: Basophils # (A) 0.1 k/uL (0-0.2); Basophils % (A) 0 %; Eosinophils # (A) 0.2 k/uL (0-0.7); Eosinophils % (A) 2 %; HCT 39.1 % (34.0-46.0); HGB 12.8 gm/dL (11.4-16.0); Lymphocytes # (A) 0.8 k/uL (1.0-4.8); Lymphocytes % (A) 6 %; MCH 30.5 pg (25.0-35.0); MCHC 32.7 g/dL (31.0-37.0); MCV 93.2 fL (80.0-100.0); Mean Platelet Volume 9.2; Monocytes # (A) 0.7 k/uL (0-1.0); Monocytes % (A) 5 %; Neutrophils # (A) 11.1 k/uL (1.3-7.7); Neutrophils % (A) 85 %; Platelet Count 176 k/uL (150-450); RBC 4.19 m/uL (3.80-5.40); RDW 12.4 % (11.5-15.5)
[2021-10-14] MEDS ORDERED: fentaNYL (PF) 50 MCG/ML 2 ML AMP IVP PRN (06:13)
--- NOTE | 2021-10-14 06:13 | ED ---
Abdominal Pain HPI - General Chief Complaint: Abdominal Pain Stated Complaint: abd pain Time Seen by Provider: 10/14/21 06:02 Source: patient, RN notes reviewed, old records reviewed Mode of arrival: ambulatory Limitations: no limitations - History of Present Illness Initial Comments: 81-year-old female, alert and oriented, presents to the emergency room with cramping lower abdominal pain that woke her from sleep. Patient states no nausea, vomiting, diarrhea or fevers. She states that she is scheduled to see a surgeon today regarding a possible cholecystectomy. Per her , she was diagnosed with a cyst on her gallbladder last month after she was hospitalized for pancreatitis. MD Complaint: abdominal pain -: hour(s) Location: LLQ, RLQ Radiation: none Severity scale (1-10): 8 Quality: cramping Consistency: constant Improves With: nothing Worsens With: nothing Context: other (Seeing surgeon today to schedule cholecystectomy) Associated Symptoms: denies other symptoms - Related Data Home Medications Medication Instructions Recorded Confirmed Atorvastatin [Lipitor] 20 mg PO HS 02/05/17 08/28/21 Isosorbide Mononitrate [Isosorbide 30 mg PO DAILY 02/05/17 08/28/21 Mononitrate ER] Metoprolol Tartrate [Lopressor] 25 mg PO DAILY 02/05/17 08/28/21 Travoprost [Travatan Z 0.004%] 1 drop BOTH EYES HS 02/05/17 08/28/21 Donepezil [Aricept] 5 mg PO DAILY 08/28/21 08/28/21 buPROPion XL [Wellbutrin XL] 150 mg PO DAILY 08/28/21 08/28/21 Allergies Allergy/AdvReac Type Severity Reaction Status Date / Time codeine Allergy Hallucinations, Verified 10/14/21 05:08 "makes me loopy" Review of Systems ROS Statement: Those systems with pertinent positive or pertinent negative responses have been documented in the HPI. ROS Other: All systems not noted in ROS Statement are negative. Past Medical History Past Medical History: Chest Pain / Angina, Eye Disorder, Hyperlipidemia, Hypertension Additional Past Medical History / Comment(s): GLAUCOMA. SPOUSE STATES SHE IS GETTING FORGETFUL. History of Any Multi-Drug Resistant Organisms: None Reported Past Surgical History: Hysterectomy, Orthopedic Surgery Additional Past Surgical History / Comment(s): 10/16/20 RIGHT ROTATOR CUFF REPAIR. RT FOOT BUNIONECTOMY, LEFT BREAST BX Past Anesthesia/Blood Transfusion Reactions: Postoperative Nausea & Vomiting (PONV) Past Psychological History: No Psychological Hx Reported Smoking Status: Never smoker Past Alcohol Use History: None Reported Past Drug Use History: None Reported - Past Family History Mother Additional Family Medical History / Comment(s): MOTHER, CABG AND PACEMAKER Son(s) Family Medical History: Cancer General Exam Limitations: no limitations General appearance: alert, in no apparent distress Head exam: Present: atraumatic, normocephalic, normal inspection Eye exam: Absent: scleral icterus, conjunctival injection ENT exam: Present: mucous membranes moist Respiratory exam: Absent: respiratory distress, accessory muscle use, decreased breath sounds Cardiovascular Exam: Present: regular rate GI/Abdominal exam: Present: soft, normal bowel sounds. Absent: distended, tenderness, guarding, rebound, rigid Extremities exam: Present: normal capillary refill. Absent: pedal edema Neurological exam: Present: alert, oriented X3 Psychiatric exam: Present: normal affect, normal mood Skin exam: Present: warm, dry, normal color. Absent: cyanosis, diaphoretic, petechiae, pallor Course Vital Signs 10/14/21 10/14/21 10/14/21 05:08 07:03 07:15 Temperature 98.3 F 97.8 F Pulse Rate 62 53 L 65 Respiratory 16 16 18 Rate Blood Pressure 180/62 168/93 170/58 O2 Sat by Pulse 98 96 Oximetry 10/14/21 10/14/21 08:35 09:39 Temperature 97.8 F Pulse Rate 53 L 68 Respiratory 18 18 Rate Blood Pressure 146/50 144/72 O2 Sat by Pulse 97 Oximetry Medical Decision Making - Medical Decision Making Patient presents with lower cramping abdominal pain for the past hour and half. She denies any nausea vomiting diarrhea or fevers. She denies any hematochezia or hematemesis. She was diagnosed with a gallbladder polyp with no definitive stones. No dilated ducts on August 28 and directed to follow up with surgery for possible cholecystectomy. She does have an appointment with surgery today at 1:00. CT abdomen today shows sigmoid diverticulosis without diverticulitis. There is a normal appendix. No acute abnormality in the abdomen. Potassium is 3.3, patient was given potassium by mouth. BUN and creatinine are elevated but stable. No significant leukocytosis. Vital signs are stable. Abdomen is soft and minimally tender Patient does have an appointment with her surgeon today at 1:00. She was instructed to keep that appointment, return to the emergency room with a new or concerning symptoms or increasing pain. Patient and family member are agreeable to this plan of care. Case was discussed with Dr. Seo. - Lab Data Result diagrams: 10/14/21 05:57 10/14/21 05:57 Lab Results 10/14/21 10/14/21 10/14/21 Range/Units 05:57 05:57 08:45 WBC 13.0 H (3.8-10.6) k/uL RBC 4.19 (3.80-5.40) m/uL Hgb 12.8 (11.4-16.0) gm/dL Hct 39.1 (34.0-46.0) % MCV 93.2 (80.0-100.0) fL MCH 30.5 (25.0-35.0) pg MCHC 32.7 (31.0-37.0) g/dL RDW 12.4 (11.5-15.5) % Plt Count 176 (150-450) k/uL MPV 9.2 Neutrophils % 85 % Lymphocytes % 6 % Monocytes % 5 % Eosinophils % 2 % Basophils % 0 % Neutrophils # 11.1 H (1.3-7.7) k/uL Lymphocytes # 0.8 L (1.0-4.8) k/uL Monocytes # 0.7 (0-1.0) k/uL Eosinophils # 0.2 (0-0.7) k/uL Basophils # 0.1 (0-0.2) k/uL Sodium 138 (137-145) mmol/L Potassium 3.3 L (3.5-5.1) mmol/L Chloride 105 (98-107) mmol/L Carbon Dioxide 29 (22-30) mmol/L Anion Gap 4 mmol/L BUN 36 H (7-17) mg/dL Creatinine 1.36 H (0.52-1.04) mg/dL Est GFR (CKD-EPI)AfAm 42 (>60 ml/min/1.73 sqM) Est GFR (CKD-EPI)NonAf 37 (>60 ml/min/1.73 sqM) Glucose 107 H (74-99) mg/dL Calcium 9.0 (8.4-10.2) mg/dL Total Bilirubin 0.5 (0.2-1.3) mg/dL AST 26 (14-36) U/L ALT 18 (4-34) U/L Alkaline Phosphatase 87 (38-126) U/L Total Protein 5.7 L (6.3-8.2) g/dL Albumin 3.5 (3.5-5.0) g/dL Amylase 162 H (30-110) U/L Lipase 485 H (23-300) U/L Urine Color Yellow Urine Appearance Clear (Clear) Urine pH 5.0 (5.0-8.0) Ur Specific [place] 1.020 (1.001-1.035) Urine Protein Trace H (Negative) Urine Glucose (UA) Negative (Negative) Urine Ketones Negative (Negative) Urine Blood Negative (Negative) Urine Nitrite Negative (Negative) Urine Bilirubin Negative (Negative) Urine Urobilinogen <2.0 (<2.0) mg/dL Ur Leukocyte Esterase Small H (Negative) Urine RBC <1 (0-5) /hpf Urine WBC 5 (0-5) /hpf Ur Squamous Epith Cells <1 (0-4) /hpf Hyaline Casts 1 (0-2) /lpf Urine Mucus Rare H (None) /hpf Disposition Clinical Impression: Abdominal pain Disposition: HOME SELF-CARE Condition: Good Instructions (If sedation given, give patient instructions): Abdominal Pain (ED) Additional Instructions: Keep your appointment today with your doctor for follow-up on your gallbladder. Return to the emergency room with any new or concerning symptoms including increased pain, fevers or persistent nausea vomiting. Follow-up with the primary care doctor this week for continuation of care. Is patient prescribed a controlled substance at d/c from ED?: No Referrals: Caden Castillo MD [Primary Care Provider] - 1-2 days Time of Disposition: 09:34
[2021-10-14 06:29] LABS: Albumin 3.5 g/dL (3.5-5.0); Potassium 3.3 mmol/L (3.5-5.1); Total Bilirubin 0.5 mg/dL (0.2-1.3); Total Protein 5.7 g/dL (6.3-8.2)
[2021-10-14] MEDS ORDERED: ONDANSETRON 4 MG/2 ML VIAL IVP STA (06:57)
--- NOTE | 2021-10-14 07:12 | CT ---
EXAMINATION TYPE: CT abdomen pelvis wo con DATE OF EXAM: 10/14/2021 COMPARISON: 10/10/2018 HISTORY: Abdominal pain CT DLP: 404.5 mGycm Automated exposure control for dose reduction was used. Images obtained from the diaphragm to the floor the pelvis with no contrast. There is mild subsegmental atelectasis at the lung bases. Heart size is normal. No pericardial effusi on. Liver spleen and stomach pancreas appear intact. There is vascular calcification. The bile ducts are not dilated. Gallbladder is intact. There is no adrenal mass. Kidneys have normal size. No hydronephrosis. There is 4.5 cm cortical cyst lower pole right kidney. Appendix appears normal. There is no retroperitoneal adenopathy. Ureters are nondilated. Bladder distends smoothly. No inguinal hernia. No free fluid in the pelvis. There are nu merous sigmoid diverticula. There is 2 cm cyst on the left ovary which is stable compared to old exam. There is no mesenteric edema. No ascites or free air. No bowel obstruction. Lumbar spine is intact. N o compression fracture. IMPRESSION: Sigmoid diverticulosis without diverticulitis. Atherosclerotic vascular disease. Normal appendix. No acute abnormality in the abdomen pelvis. No change.
[2021-10-14 07:58] VITALS: RESP 18; TEMP 97.8
[2021-10-14] MEDS ORDERED: POTASSIUM CHLORIDE ER 20 MEQ TAB.ER PO STA (08:29)
[2021-10-14 09:23] LABS: Appearance,Urine Clear (Clear); Bilirubin,Urine Negative (Negative); Blood,Urine Negative (Negative); Color,Urine Yellow; Glucose,Urine (UA) Negative (Negative); Hyaline Casts,Urine 1 /lpf (0-2); Ketones,Urine Negative (Negative); Leukocyte Esterase,Urine Small (Negative); Mucus,Urine Rare /hpf; Nitrite,Urine Negative (Negative); Protein,Urine Trace (Negative); RBC,Urine <1 /hpf (0-5); Squamous Epithelial Cell,Urine <1 /hpf (0-4); Urobilinogen,Urine <2.0 mg/dL (<2.0); WBC,Urine 5 /hpf (0-5)
[2021-10-14 09:41] VITALS: BP 144/72; PULSE 68
== END 2021-10-14 09:39 | disposition home or self-care (01) ==
LOC: EC 04:55
DX: R10.30 Lower abdominal pain, unspecified (principal); E78.5 Hyperlipidemia, unspecified; I10 Essential (primary) hypertension; Z88.5 Allergy status to narcotic agent
CPT/HCPCS: 36415; 80053; 82150; 83690; 85025; 81001; 74176; 99284; 96374; 96375; J2405; J3010

== ENCOUNTER 2021-10-22 09:45 | Inpatient (IN) | payer MEDICARE, OTHER ==
[2021-10-22] MEDS ORDERED: SODIUM CHLORIDE 0.9% 1,000 ML IV STA (10:16)
[2021-10-22] MEDS ORDERED: ONDANSETRON 4 MG/2 ML VIAL IVP STA (10:16)
[2021-10-22] MEDS ORDERED: HYDROmorphone 0.5 MG/0.5 ML SYRINGE IVP STA ×2 (10:25→13:49)
[2021-10-22 10:39] LABS: Basophils # (A) 0.1 k/uL (0-0.2); Basophils % (A) 1 %; Eosinophils # (A) 0.1 k/uL (0-0.7); Eosinophils % (A) 1 %; HCT 40.6 % (34.0-46.0); Lymphocytes % (A) 9 %; MCH 30.2 pg (25.0-35.0); MCHC 32.1 g/dL (31.0-37.0); Mean Platelet Volume 9.2; Monocytes # (A) 0.7 k/uL (0-1.0); Monocytes % (A) 6 %; Neutrophils # (A) 8.6 k/uL (1.3-7.7); Neutrophils % (A) 81 %; Platelet Count 183 k/uL (150-450); RBC 4.32 m/uL (3.80-5.40); RDW 12.6 % (11.5-15.5); WBC 10.5 k/uL (3.8-10.6)
[2021-10-22 11:01] LABS: INR 0.9 (<1.2); Prothrombin Time 10.4 sec (9.0-12.0)
[2021-10-22 11:04] LABS: Partial Thromboplastin Time 21.7 sec (22.0-30.0)
--- NOTE | 2021-10-22 11:11 | ED ---
Abdominal Pain HPI - General Chief Complaint: Abdominal Pain Stated Complaint: ABD PAIN Time Seen by Provider: 10/22/21 10:06 Source: patient Mode of arrival: ambulatory Limitations: no limitations - History of Present Illness Initial Comments: Patient is an 81-year-old female with a past medical history of hypertension, hyperlipidemia, and pancreatitis presents to the emergency department with a chief complaint of lower abdominal pain. She was sent by her primary care provider. Patient states the pain started around 7 this morning. Describes it as a dull cramping in her left lower abdomen. There is no radiation. States she has had multiple episodes of nausea and vomiting for the past few days, sometimes related to food intake. She denies fever, chills, shortness of breath, chest pain, diarrhea, burning with urination, blood in the urine. States last bowel movement was today which is normal. Denies alcohol use. Denies history of diverticulitis. Patient was recently diagnosed with pancreatitis in August. Documentation was reviewed. There was unclear etiology of her pancreatitis, possibly due to new medication Aricept. Patient was found to have a gallbladder polyp at this time. Patient states she has a HIDA scan tomorrow with Dr. Mirza. - Related Data Home Medications Medication Instructions Recorded Confirmed Atorvastatin [Lipitor] 20 mg PO HS 02/05/17 10/22/21 Isosorbide Mononitrate [Isosorbide 30 mg PO DAILY 02/05/17 10/22/21 Mononitrate ER] Metoprolol Tartrate [Lopressor] 25 mg PO DAILY 02/05/17 10/22/21 Travoprost [Travatan Z 0.004%] 1 drop BOTH EYES HS 02/05/17 10/22/21 Donepezil [Aricept] 5 mg PO DAILY 08/28/21 10/22/21 buPROPion XL [Wellbutrin XL] 150 mg PO DAILY 08/28/21 10/22/21 Allergies Allergy/AdvReac Type Severity Reaction Status Date / Time codeine AdvReac Hallucinations, Verified 10/22/21 11:16 "makes me loopy" Review of Systems ROS Statement: Those systems with pertinent positive or pertinent negative responses have been documented in the HPI. ROS Other: All systems not noted in ROS Statement are negative. Past Medical History Past Medical History: Chest Pain / Angina, Eye Disorder, Hyperlipidemia, Hypertension Additional Past Medical History / Comment(s): GLAUCOMA. SPOUSE STATES SHE IS GETTING FORGETFUL. History of Any Multi-Drug Resistant Organisms: None Reported Past Surgical History: Hysterectomy, Orthopedic Surgery Additional Past Surgical History / Comment(s): 10/16/20 RIGHT ROTATOR CUFF REPAIR. RT FOOT BUNIONECTOMY, LEFT BREAST BX Past Anesthesia/Blood Transfusion Reactions: Postoperative Nausea & Vomiting (PONV) Past Psychological History: No Psychological Hx Reported Smoking Status: Never smoker Past Alcohol Use History: None Reported Past Drug Use History: None Reported - Past Family History Mother Additional Family Medical History / Comment(s): MOTHER, CABG AND PACEMAKER Son(s) Family Medical History: Cancer General Exam Limitations: no limitations General appearance: alert, in no apparent distress Head exam: Present: atraumatic, normocephalic, normal inspection Eye exam: Present: normal appearance, PERRL, EOMI. Absent: scleral icterus, conjunctival injection, periorbital swelling Respiratory exam: Present: normal lung sounds bilaterally. Absent: respiratory distress, wheezes, rales, rhonchi, stridor Cardiovascular Exam: Present: normal rhythm, bradycardia, normal heart sounds. Absent: regular rate, systolic murmur, diastolic murmur, rubs, gallop, clicks GI/Abdominal exam: Present: soft, tenderness (epigastric and LLQ.), normal bowel sounds. Absent: distended, guarding, rebound, rigid Neurological exam: Present: alert, oriented X3, CN II-XII intact Psychiatric exam: Present: normal affect, normal mood Course Vital Signs 10/22/21 09:46 Temperature 98.2 F Pulse Rate 51 L Respiratory 18 Rate Blood Pressure 174/50 O2 Sat by Pulse 99 Oximetry Medical Decision Making - Medical Decision Making This is an 81-year-old female who presents with left lower quadrant abdominal pain. Thorough history and examination were performed. Patient is well- appearing. The abdomen is soft. There is mild tenderness with palpation of the left lower quadrant and epigastric region. EKGs show sinus bradycardia without ST segment or T-wave abnormalities. Ventricular rate of 44. Patient denies history of bradycardia however recent EKGs show bradycardia with pulse in the high 50s. Laboratory studies significant for elevated lipase and amylase at 1347 and 245. Creatinine is consistent with chronic kidney disease at 1.39. Potassium is low at 3.2. CT of the abdomen and pelvis shows redemonstration of findings of epiploic appendagitiis of the sigmoid colon with suspected colonic diverticulitis of the sigmoid colon as well as in the rectum. Pain control with Dilaudid. Patient did have episode of vomiting after Zofran was given. Compazine was then ordered. Fluid bolus, oral potassium, and Augmentin given. Results discussed with patient. Patient will be admitted for acute pancreatitis and diverticulitis. She is NPO. Dr. Castellanos agreeable to admission. Dr. Romero is my attending. - Lab Data Result diagrams: 10/22/21 10:20 10/22/21 11:28 Lab Results 10/22/21 10/22/21 10/22/21 Range/Units 10:20 10:20 10:20 WBC 10.5 (3.8-10.6) k/uL RBC 4.32 (3.80-5.40) m/uL Hgb 13.0 (11.4-16.0) gm/dL Hct 40.6 (34.0-46.0) % MCV 94.0 (80.0-100.0) fL MCH 30.2 (25.0-35.0) pg MCHC 32.1 (31.0-37.0) g/dL RDW 12.6 (11.5-15.5) % Plt Count 183 (150-450) k/uL MPV 9.2 Neutrophils % 81 % Lymphocytes % 9 % Monocytes % 6 % Eosinophils % 1 % Basophils % 1 % Neutrophils # 8.6 H (1.3-7.7) k/uL Lymphocytes # 1.0 (1.0-4.8) k/uL Monocytes # 0.7 (0-1.0) k/uL Eosinophils # 0.1 (0-0.7) k/uL Basophils # 0.1 (0-0.2) k/uL PT 10.4 (9.0-12.0) sec INR 0.9 (<1.2) APTT 21.7 L (22.0-30.0) sec Sodium (137-145) mmol/L Potassium (3.5-5.1) mmol/L Chloride (98-107) mmol/L Carbon Dioxide (22-30) mmol/L Anion Gap mmol/L BUN (7-17) mg/dL Creatinine (0.52-1.04) mg/dL Est GFR (CKD-EPI)AfAm (>60 ml/min/1.73 sqM) Est GFR (CKD-EPI)NonAf (>60 ml/min/1.73 sqM) Glucose (74-99) mg/dL Calcium (8.4-10.2) mg/dL Total Bilirubin (0.2-1.3) mg/dL AST (14-36) U/L ALT (4-34) U/L Alkaline Phosphatase (38-126) U/L Troponin I <0.012 (0.000-0.034) ng/mL Total Protein (6.3-8.2) g/dL Albumin (3.5-5.0) g/dL Amylase (30-110) U/L Lipase (23-300) U/L 10/22/21 Range/Units 11:28 WBC (3.8-10.6) k/uL RBC (3.80-5.40) m/uL Hgb (11.4-16.0) gm/dL Hct (34.0-46.0) % MCV (80.0-100.0) fL MCH (25.0-35.0) pg MCHC (31.0-37.0) g/dL RDW (11.5-15.5) % Plt Count (150-450) k/uL MPV Neutrophils % % Lymphocytes % % Monocytes % % Eosinophils % % Basophils % % Neutrophils # (1.3-7.7) k/uL Lymphocytes # (1.0-4.8) k/uL Monocytes # (0-1.0) k/uL Eosinophils # (0-0.7) k/uL Basophils # (0-0.2) k/uL PT (9.0-12.0) sec INR (<1.2) APTT (22.0-30.0) sec Sodium 139 (137-145) mmol/L Potassium 3.2 L (3.5-5.1) mmol/L Chloride 107 (98-107) mmol/L Carbon Dioxide 28 (22-30) mmol/L Anion Gap 4 mmol/L BUN 32 H (7-17) mg/dL Creatinine 1.39 H (0.52-1.04) mg/dL Est GFR (CKD-EPI)AfAm 41 (>60 ml/min/1.73 sqM) Est GFR (CKD-EPI)NonAf 36 (>60 ml/min/1.73 sqM) Glucose 97 (74-99) mg/dL Calcium 8.5 (8.4-10.2) mg/dL Total Bilirubin 0.7 (0.2-1.3) mg/dL AST 28 (14-36) U/L ALT 16 (4-34) U/L Alkaline Phosphatase 64 (38-126) U/L Troponin I (0.000-0.034) ng/mL Total Protein 5.1 L (6.3-8.2) g/dL Albumin 3.0 L (3.5-5.0) g/dL Amylase 245 H (30-110) U/L Lipase 1347 H (23-300) U/L - EKG Data EKG Comments: EKG taken 10:25 Sinus bradycardia, no ST segment or T-wave abnormalities Ventricular rate 44 NV interval 122 QRS duration 89 QTc 455 Disposition Clinical Impression: Pancreatitis, Diverticulitis, Renal insufficiency, Abdominal pain Disposition: ADMITTED IP TO THIS HOSP Condition: Fair Referrals: Caden Castillo MD [Primary Care Provider] - 1-2 days Time of Disposition: 13:55
[2021-10-22 12:13] LABS: Calcium 8.5 mg/dL (8.4-10.2); Potassium 3.2 mmol/L (3.5-5.1); Total Bilirubin 0.7 mg/dL (0.2-1.3); Total Protein 5.1 g/dL (6.3-8.2)
[2021-10-22] MEDS ORDERED: POTASSIUM CHLORIDE ER 20 MEQ TAB.ER PO STA (12:53)
--- NOTE | 2021-10-22 13:21 | CT ---
EXAMINATION TYPE: CT abdomen pelvis wo con CT DLP: 420.3 mGycm, Automated exposure control for dose reduction was used. DATE OF EXAM: 10/22/2021 12:53 PM COMPARISON: CT abdomen pelvis most recent from 10/14/2021 CLINICAL INDICATION:Female, 81 years old with history of LLQ pain; TECHNIQUE: Axial CT of the abdomen and pelvis. Sagittal and coronal reformats were created on a [employer] workstation. Contrast used: None Oral contrast used: without Oral Contrast FINDINGS: LOWER CHEST: Unremarkable ABDOMEN LIVER: Unremarkable GALLBLADDER AND BILE DUCTS: Unremarkable. PANCREAS: Unremarkable. SPLEEN: Unremarkable. ADRENAL GLANDS: Unremarkable. KIDNEYS AND URETERS: No evidence of hydronephrosis or renal calculus. Right renal cyst. PELVIS BLADDER: Unremarkable REPRODUCTIVE: Stable left ovarian cyst. ABDOMEN & PELVIS STOMACH AND BOWEL: Mild inflammation changes are seen within the left lower quadrant. There is a epip loic appendage with surrounding fat stranding noted on series 201 image 43. There is findings of mult iple colonic diverticula with inflammation changes most pronounced in the pelvis. No evidence of orga nizing fluid collections. PERITONEUM: No evidence of pneumoperitoneum or free fluid. VASCULATURE: Moderate atherosclerotic calcifications are present throughout the abdominal aorta and i ts branches. No evidence of aortic aneurysm. MUSCULOSKELETAL: No acute osseous abnormalities. Mild disc degeneration changes are present throughou t the thoracolumbar spine. LYMPH NODES: No gross evidence for lymphadenopathy. SOFT TISSUE/ABDOMINAL WALL: Unremarkable IMPRESSION: Redemonstration of findings of epiploic appendagitis of the sigmoid colon with suspected colonic dive rticulitis of the sigmoid colon as well near the rectum.
[2021-10-22] MEDS ORDERED: AMOXIC-POT CLAV 875-125MG 1 EACH TAB PO STA (13:39)
[2021-10-22] MEDS ORDERED: PROCHLORPERAZINE INJ 10 MG/2 ML VIAL IVP STA (13:49)
[2021-10-22] MEDS ORDERED: NALOXONE 0.4 MG/ML 1 ML VIAL IV PRN (13:55)
[2021-10-22] MEDS ORDERED: PROCHLORPERAZINE 5 MG TAB PO PRN (13:55)
[2021-10-22] MEDS ORDERED: HYDROmorphone 0.5 MG/0.5 ML SYRINGE IVP PRN (13:55)
[2021-10-22] MEDS: SODIUM CHLORIDE 0.9% 1,000 ML IV SCH (16:49)
[2021-10-22] MEDS ORDERED: ONDANSETRON 4 MG/2 ML VIAL IVP PRN (17:35)
[2021-10-22] MEDS ORDERED: ACETAMINOPHEN TAB 325 MG TAB PO PRN (17:35)
--- NOTE | 2021-10-22 17:45 | P.HPIM ---
History of Present Illness H&P Date: 10/22/21 Chief Complaint: abdominal pain Patient is an 81 y CF with a hx of HTN, HLD, and pancreatitis who presented to the ED with complaints of abdominal pain. In the ER she underwent a CT abdomen and pelvis which showed mild inflammatory changes in the left lower quadrant, multiple colonic diverticuli with inflammatory changes, consistent with acute diverticulitis. Laboratory analysis demonstrated potassium of 3.2, creatinine 1.39 (at baseline), and elevated lipase at 1347. She was given a dose of Augmentin and multiple doses of Dilaudid. She was given a 1 L bolus. Arrangements are made for admission. Had an episode of vomiting in the ED and required multiple doses of pain medications. Patient seen and examined at bedside. Starting last night she was noting an upset stomach with vomiting X 1, this morning felt nauseated. She was having crampy abdominal pain in the RLQ and LLQ. No significant diarrhea and constipation, no blood in her stool. No fevers at home. Was seen by Dr. Castillo this AM who directed her to the ED. Low appetite, since yesterday Pertinent positives and negatives as discussed in HPI, a complete review of systems was performed and all other systems are negative. Vital signs reviewed General: nontoxic, no distress, appears at stated age Derm: warm, dry Head: atraumatic, normocephalic, symmetric Eyes: EOMI, no lid lag, anicteric sclera, pupils equal round reactive to light ENT: Nose and ears atraumatic, no thrush, no pharyngeal erythema Neck: No thyromegaly, no cervical lymphadenopathy, trachea midline, supple Mouth: no lip lesion, mucus membranes moist Cardiovascular: S1S2 reg, no murmur, positive posterior tibial pulse bilateral, no edema, capillary refill less than 2 seconds Lungs: clear to auscultation bilateral, no rhonchi, no rales, no wheeze, no accessory muscle use Abdominal: soft, nontender to palpation, no guarding, no appreciable organomegaly, normal bowel sounds Ext: no gross muscle atrophy, muscle strength muscle strength 5 out of 5 in all 4 extremities, no contractures Neuro: CN II-XII grossly intact, light touch intact all 4 extremities, finger to nose within normal limits, Psych: Alert, oriented, appropriate affect Assessment/Plan: Diverticulitis Elevated lipase- suspect secondary to vomiting. - IV fluids - Unasyn anticipate transition to orals in AM - clear liquid diet - pain control - antiemetics Hypokalemia - repalce and recheck in AM HTN - follow BP - lopressor - imdur HLD - lipitor CKD III at baseline - follow Cr - avoid nephrotoxic agents Memory impairment - aricept Hx of multiple falls - PT/OT - fall precautions The patient is admitted with an anticipated greater than 2 midnight stay for evaluation of diverticultis and elevated lipase. CODE STATUS:Full DVT prophylaxis: SCDs Discussed with: patient Anticipated discharge date: in 1-[address]: home A total of 65 minutes was spent on the care of this complex patient more than 50% of the time was spent in counseling and care coordination. Past Medical History Past Medical History: Chest Pain / Angina, Eye Disorder, Hyperlipidemia, Hypertension Additional Past Medical History / Comment(s): GLAUCOMA. SPOUSE STATES SHE IS GETTING FORGETFUL. History of Any Multi-Drug Resistant Organisms: None Reported Past Surgical History: Hysterectomy, Orthopedic Surgery Additional Past Surgical History / Comment(s): 10/16/20 RIGHT ROTATOR CUFF REPAIR. RT FOOT BUNIONECTOMY, LEFT BREAST BX Past Anesthesia/Blood Transfusion Reactions: Postoperative Nausea & Vomiting (PONV) Past Psychological History: No Psychological Hx Reported Smoking Status: Never smoker Past Alcohol Use History: None Reported Past Drug Use History: None Reported - Past Family History Mother Additional Family Medical History / Comment(s): MOTHER, CABG AND PACEMAKER Son(s) Family Medical History: Cancer Medications and Allergies Home Medications Medication Instructions Recorded Confirmed Type Atorvastatin [Lipitor] 20 mg PO HS 02/05/17 10/22/21 History Isosorbide Mononitrate [Isosorbide 30 mg PO DAILY 02/05/17 10/22/21 History Mononitrate ER] Metoprolol Tartrate [Lopressor] 25 mg PO DAILY 02/05/17 10/22/21 History Travoprost [Travatan Z 0.004%] 1 drop BOTH EYES HS 02/05/17 10/22/21 History Donepezil [Aricept] 5 mg PO DAILY 08/28/21 10/22/21 History buPROPion XL [Wellbutrin XL] 150 mg PO DAILY 08/28/21 10/22/21 History Allergies Allergy/AdvReac Type Severity Reaction Status Date / Time codeine AdvReac Hallucinations, Verified 10/22/21 11:16 "makes me loopy" Physical Exam Osteopathic Statement: *. No significant issues noted on an osteopathic structural exam other than those noted in the History and Physical/Consult. Vitals: Vital Signs Temp Pulse Resp BP Pulse Ox 10/22/21 16:50 50 L 16 168/55 99 10/22/21 13:49 73 16 154/56 98 10/22/21 09:46 98.2 F 51 L 18 174/50 99 Intake and Output 10/22/21 10/22/21 10/22/21 06:59 14:59 22:59 Other: Weight 54.431 kg Results CBC & Chem 7: 10/22/21 10:20 10/22/21 11:28 Labs: Abnormal Lab Results - Last 24 Hours (Table) 10/22/21 10/22/21 10/22/21 Range/Units 10:20 10:20 11:28 Neutrophils # 8.6 H (1.3-7.7) k/uL APTT 21.7 L (22.0-30.0) sec Potassium 3.2 L (3.5-5.1) mmol/L BUN 32 H (7-17) mg/dL Creatinine 1.39 H (0.52-1.04) mg/dL Total Protein 5.1 L (6.3-8.2) g/dL Albumin 3.0 L (3.5-5.0) g/dL Amylase 245 H (30-110) U/L Lipase 1347 H (23-300) U/L
[2021-10-22] MEDS: AMPICILLIN-SULBACTAM 3 GM in SODIUM CHLORIDE 0.9% 100 ML IVPB SCH ×2 (19:43→23:37)
[2021-10-22] MEDS: ATORVASTATIN 20 MG TAB PO SCH (21:27)
[2021-10-22 22:30] LABS: Appearance,Urine Clear (Clear); Bilirubin,Urine Negative (Negative); Blood,Urine Negative (Negative); Color,Urine Yellow; Glucose,Urine (UA) Negative (Negative); Hyaline Casts,Urine 1 /lpf (0-2); Ketones,Urine Negative (Negative); Leukocyte Esterase,Urine Small (Negative); Mucus,Urine Few /hpf; Nitrite,Urine Negative (Negative); Protein,Urine Trace (Negative); RBC,Urine <1 /hpf (0-5); Specific Gravity,Urine 1.022 (1.001-1.035); Squamous Epithelial Cell,Urine 1 /hpf (0-4); Urobilinogen,Urine <2.0 mg/dL (<2.0); WBC,Urine 8 /hpf (0-5)
[2021-10-23] MEDS: LATANOPROST 0.005% OPHTH DROPS 2.5 ML BTL BOTH EYES SCH ×2 (00:44→21:08)
[2021-10-23] MEDS: SODIUM CHLORIDE 0.9% 1,000 ML IV SCH ×4 (00:45→21:09)
[2021-10-23] MEDS: AMPICILLIN-SULBACTAM 3 GM in SODIUM CHLORIDE 0.9% 100 ML IVPB SCH ×2 (05:09→12:23)
[2021-10-23 06:51] LABS: ALT 15 U/L (4-34); AST 26 U/L (14-36); African American GFR (CKD) 49 (>60 ml/min/1.73 sqM); Albumin 2.9 g/dL (3.5-5.0); Albumin/Globulin Ratio 1.4; Alkaline Phosphatase 62 U/L (38-126); Anion Gap 6 mmol/L; Blood Urea Nitrogen 27 mg/dL (7-17); Calcium 8.4 mg/dL (8.4-10.2); Carbon Dioxide 23 mmol/L (22-30); Chloride 112 mmol/L (98-107); Globulin 2.1 g/dL; Glucose 66 mg/dL (74-99); Magnesium 1.9 mg/dL (1.6-2.3); Non-African American GFR(CKD) 43 (>60 ml/min/1.73 sqM); Potassium 3.7 mmol/L (3.5-5.1); Sodium 141 mmol/L (137-145); Total Bilirubin 0.5 mg/dL (0.2-1.3)
[2021-10-23 08:18] LABS: HCT 36.9 % (34.0-46.0); HGB 11.8 gm/dL (11.4-16.0); Hypochromasia Slight; MCHC 31.8 g/dL (31.0-37.0); MCV 97.5 fL (80.0-100.0); Platelet Count 154 k/uL (150-450); RBC 3.79 m/uL (3.80-5.40); RDW 12.6 % (11.5-15.5)
--- NOTE | 2021-10-23 09:18 | P.PN ---
Subjective Progress Note Date: 10/23/21 Pt doing much better today. No further nausea, vomiting. Pain is better controlled. Pending BM. Gen: awake, alert HEENT: normocephalic, atraumatic, good hearing acuity, moist mucous membranes Resp: good air exchange, breathing comfortably with no accessory muscle use CVS: good distal perfusion x 4, GI: soft, NTTP, ND : no SPT, no CVAT, ayoub catheter not present MSK: no pitting edema, no clubbing Neuro: non-focal, moving all extremities Psych: cooperative, euthymic mood Assessment/plan: Diverticulitis Elevated lipase- suspect secondary to vomiting. - IV fluids - Unasyn anticipate transition to orals in AM - clear liquid diet - pain control - antiemetics Hypokalemia - repalce and recheck in AM HTN - follow BP - lopressor - imdur HLD - lipitor CKD III at baseline - follow Cr - avoid nephrotoxic agents Memory impairment - aricept Hx of multiple falls - PT/OT - fall precautions The patient is admitted with an anticipated greater than 2 midnight stay for evaluation of diverticultis and elevated lipase. CODE STATUS:Full DVT prophylaxis: SCDs Discussed with: patient Anticipated discharge date: in 1-[address]: home A total of 65 minutes was spent on the care of this complex patient more than 50% of the time was spent in counseling and care coordination. Objective - Vital Signs Vital signs: Vital Signs Temp 97.9 F 10/23/21 05:00 Pulse 70 10/23/21 05:00 Resp 16 10/23/21 05:00 BP 105/54 10/23/21 05:00 Pulse Ox 96 10/23/21 05:00 FiO2 Intake & Output 10/22/21 10/23/21 10/23/21 18:59 06:59 18:59 Intake Total 590 Balance 590 Weight 54.431 kg Intake: Oral 590 - Labs CBC & Chem 7: 10/23/21 07:49 10/23/21 04:47 Labs: Abnormal Lab Results - Last 24 Hours (Table) 10/22/21 10/22/21 10/22/21 Range/Units 10:20 10:20 10:20 RBC (3.80-5.40) m/uL Neutrophils # 8.6 H (1.3-7.7) k/uL APTT 21.7 L (22.0-30.0) sec Potassium (3.5-5.1) mmol/L Chloride (98-107) mmol/L BUN (7-17) mg/dL Creatinine (0.52-1.04) mg/dL Glucose (74-99) mg/dL Total Protein (6.3-8.2) g/dL Albumin (3.5-5.0) g/dL Amylase (30-110) U/L Lipase (23-300) U/L Urine Protein Trace H (Negative) Ur Leukocyte Esterase Small H (Negative) Urine WBC 8 H (0-5) /hpf Urine Mucus Few H (None) /hpf 10/22/21 10/23/21 10/23/21 Range/Units 11:28 04:47 07:49 RBC 3.79 L (3.80-5.40) m/uL Neutrophils # (1.3-7.7) k/uL APTT (22.0-30.0) sec Potassium 3.2 L (3.5-5.1) mmol/L Chloride 112 H (98-107) mmol/L BUN 32 H 27 H (7-17) mg/dL Creatinine 1.39 H 1.19 H (0.52-1.04) mg/dL Glucose 66 L (74-99) mg/dL Total Protein 5.1 L 5.0 L (6.3-8.2) g/dL Albumin 3.0 L 2.9 L (3.5-5.0) g/dL Amylase 245 H (30-110) U/L Lipase 1347 H (23-300) U/L Urine Protein (Negative) Ur Leukocyte Esterase (Negative) Urine WBC (0-5) /hpf Urine Mucus (None) /hpf
[2021-10-23] MEDS: DONEPEZIL 5 MG TAB PO SCH (09:29)
[2021-10-23] MEDS: buPROPion XL 150 MG TAB.ER.24H PO SCH (09:29)
[2021-10-23] MEDS: METOPROLOL TARTRATE 25 MG TAB PO SCH (09:29)
[2021-10-23] MEDS: ISOSORBIDE MONONITRATE ER 30 MG TAB.ER.24H PO SCH (09:29)
--- NOTE | 2021-10-23 10:12 | P.CONS ---
History of Present Illness - Reason for Consult Consult date: 10/23/21 Pancreatitis Requesting physician: Jo Ann Phillip - Chief Complaint Abdominal pain - History of Present Illness There is a pleasant 81-year-old white female who presented to the emergency department with acute onset of left lower quadrant abdominal pain. Patient states pain began yesterday morning. She states it was crampy and followed with nausea and vomiting. Most of the pain is located in the left lower quadrant as well as the lower abdomen. She states she has not had any bowel changes. No blood in her stool. Last colonoscopy greater than 5 years ago. She had a CT of the abdomen and pelvis that showed redemonstration of findings of epiploic appendagitis of the sigmoid colon with suspected colonic diverticulitis of the sigmoid colon as well near the rectum. Patient denies any previous history of diverticulitis. She states she's been afebrile. Abdominal pain improved today. Patient was recently seen by gastroenterology in August for abdominal pain/acute pancreatitis. However at that time complains for her pain in the mid to right upper quadrant abdomen. Patient denies any pain at this time in that location. At that time it was unclear etiology of pancreatitis, patient was started on a new medication Aricept and felt that it could be medication related. During this hospitalization patient again had elevated amylase at 245 and lipase 1347. Gastroenterology was consulted for pancreatitis. LFTs within normal limits. Review of Systems REVIEW OF SYSTEMS: CARDIOPULMONARY: No chest pain or shortness of breath. Gastrointestinal: Mid and left lower abdominal pain. Nausea and vomiting yesterday now improved. No hematemesis, coffee-ground emesis. No rectal bleeding, or melena. No change in bowel habits. GENITOURINARY: No dysuria or hematuria. MUSCULOSKELETAL: Reports normal range of motion. SKIN: No rashes. No jaundice. ENDOCRINE: No chills, fevers. No excessive weight gain or loss. No polydipsia or polyuria. PSYCHIATRIC: Unremarkable. NEUROLOGY: No change in mental status. Denies dizziness, headache. ENT: Vision unremarkable. CONSTITUTIONAL: No recent weight loss. No fever, chills, night sweats. Past Medical History Past Medical History: Chest Pain / Angina, Eye Disorder, Hyperlipidemia, Hypertension Additional Past Medical History / Comment(s): GLAUCOMA. SPOUSE STATES SHE IS GETTING FORGETFUL. History of Any Multi-Drug Resistant Organisms: None Reported Past Surgical History: Hysterectomy, Orthopedic Surgery Additional Past Surgical History / Comment(s): 10/16/20 RIGHT ROTATOR CUFF REPAIR. RT FOOT BUNIONECTOMY, LEFT BREAST BX Past Anesthesia/Blood Transfusion Reactions: Postoperative Nausea & Vomiting (PONV) Past Psychological History: No Psychological Hx Reported Smoking Status: Never smoker Past Alcohol Use History: None Reported Past Drug Use History: None Reported - Past Family History Mother Additional Family Medical History / Comment(s): MOTHER, CABG AND PACEMAKER Son(s) Family Medical History: Cancer Medications and Allergies Home Medications Medication Instructions Recorded Confirmed Type Atorvastatin [Lipitor] 20 mg PO HS 02/05/17 10/22/21 History Isosorbide Mononitrate [Isosorbide 30 mg PO DAILY 02/05/17 10/22/21 History Mononitrate ER] Metoprolol Tartrate [Lopressor] 25 mg PO DAILY 02/05/17 10/22/21 History Travoprost [Travatan Z 0.004%] 1 drop BOTH EYES HS 02/05/17 10/22/21 History Donepezil [Aricept] 5 mg PO DAILY 08/28/21 10/22/21 History buPROPion XL [Wellbutrin XL] 150 mg PO DAILY 08/28/21 10/22/21 History Allergies Allergy/AdvReac Type Severity Reaction Status Date / Time codeine AdvReac Hallucinations, Verified 10/22/21 11:16 "makes me loopy" Physical Exam Vitals: Vital Signs Temp Pulse Pulse Resp BP BP Pulse Ox 10/23/21 05:00 97.9 F 70 16 105/54 96 10/22/21 22:43 98.8 F 62 16 168/69 98 10/22/21 21:28 60 15 150/53 98 10/22/21 19:30 58 L 16 147/53 98 10/22/21 16:50 50 L 16 168/55 99 10/22/21 13:49 73 16 154/56 98 10/22/21 09:46 98.2 F 51 L 18 174/50 99 Intake and Output 10/22/21 10/23/21 10/23/21 22:59 06:59 14:59 Intake Total 590 Balance 590 Intake: Oral 590 General appearance: The patient is alert, oriented, appears in no acute distress. HET: Head is normocephalic and atraumatic. Conjunctiva pink. Sclera anicteric. Neck: Supple without lymphadenopathy. Trachea midline. Heart: S1 S2. Regular rate and rhythm. Lungs: Clear to auscultation. Abdomen: Soft, left lower quadrant tenderness, nondistended with bowel sounds. No guarding or rigidity. Skin: No rashes. No jaundice. Extremities: Normal skin color and turgor. No pedal edema. Neurological: No focal deficits. Alert and oriented x3. Results CBC & Chem 7: 10/23/21 07:49 10/23/21 04:47 Labs: Abnormal Lab Results - Last 24 Hours (Table) 10/22/21 10/22/21 10/22/21 Range/Units 10:20 10:20 10:20 Neutrophils # 8.6 H (1.3-7.7) k/uL APTT 21.7 L (22.0-30.0) sec Potassium (3.5-5.1) mmol/L Chloride (98-107) mmol/L BUN (7-17) mg/dL Creatinine (0.52-1.04) mg/dL Glucose (74-99) mg/dL Total Protein (6.3-8.2) g/dL Albumin (3.5-5.0) g/dL Amylase (30-110) U/L Lipase (23-300) U/L Urine Protein Trace H (Negative) Ur Leukocyte Esterase Small H (Negative) Urine WBC 8 H (0-5) /hpf Urine Mucus Few H (None) /hpf 10/22/21 10/23/21 Range/Units 11:28 04:47 Neutrophils # (1.3-7.7) k/uL APTT (22.0-30.0) sec Potassium 3.2 L (3.5-5.1) mmol/L Chloride 112 H (98-107) mmol/L BUN 32 H 27 H (7-17) mg/dL Creatinine 1.39 H 1.19 H (0.52-1.04) mg/dL Glucose 66 L (74-99) mg/dL Total Protein 5.1 L 5.0 L (6.3-8.2) g/dL Albumin 3.0 L 2.9 L (3.5-5.0) g/dL Amylase 245 H (30-110) U/L Lipase 1347 H (23-300) U/L Urine Protein (Negative) Ur Leukocyte Esterase (Negative) Urine WBC (0-5) /hpf Urine Mucus (None) /hpf CT scan - abdomen: report reviewed (CT of the abdomen and pelvis that showed redemonstration of findings of epiploic appendagitis of the sigmoid colon with suspected colonic diverticulitis of the sigmoid colon as well near the rectum) Assessment and Plan (1) Pancreatitis Narrative/Plan: 81-year-old female who presented to the emergency department with a left lower quadrant pain CT of the abdomen and pelvis with concerns for diverticulitis. No changes within the pancreas noted on CTA. Patient known to GI from her last admission in August for acute pancreatitis, unknown etiology possibly medication induced. At this time patient is denying any pain to the right upper quadrant states pain is in the left lower quadrant. Clinical picture is not consistent with pancreatitis, again CT of the abdomen and pelvis not showing any concerns surrounding the pancreas. Possible elevation related pancreatic involvement an inflammatory process. No further workup indicated. Patient's lipase improved to 231 today. Current Visit: Yes Status: Acute Code(s): K85.90 - ACUTE PANCREATITIS WITHOUT NECROSIS OR INFECTION, UNSP SNOMED Code(s): 50689110 (2) Diverticulitis Narrative/Plan: Continue with IV antibiotics. Recommend outpatient colonoscopy in 6-8 weeks. Current Visit: Yes Status: Acute Code(s): K57.92 - DVTRCLI OF INTEST, PART UNSP, W/O PERF OR ABSCESS W/O BLEED SNOMED Code(s): 946681139 Plan: 1. Continue symptomatic and supportive care 2. Clear liquid diet 3. Continue IV antibiotics 4. No further workup for elevated amylase and lipase 5. Patient can follow-up as an outpatient with gastroenterology. Recommend outpatient colonoscopy in 16 weeks Thank you for this consultation, we will continue to follow. Dr. Alex Mirza I agree with the dictator's note, documented as a scribe by Anitha Valles.
[2021-10-23] MEDS: ATORVASTATIN 20 MG TAB PO SCH (21:08)
[2021-10-24] MEDS ORDERED: AMPICILLIN-SULBACTAM 3 GM in SODIUM CHLORIDE 0.9% 100 ML IVPB SCH ×2
[2021-10-24] MEDS: SODIUM CHLORIDE 0.9% 1,000 ML IV SCH (04:36)
[2021-10-24 05:19] VITALS: RESP 15; TEMP 98.2
[2021-10-24] MEDS: DONEPEZIL 5 MG TAB PO SCH (11:12)
[2021-10-24] MEDS: METOPROLOL TARTRATE 25 MG TAB PO SCH (11:12)
[2021-10-24] MEDS: ISOSORBIDE MONONITRATE ER 30 MG TAB.ER.24H PO SCH (11:12)
[2021-10-24] MEDS: buPROPion XL 150 MG TAB.ER.24H PO SCH (11:12)
[2021-10-24 11:53] VITALS: BP 166/63; PULSE 60
--- NOTE | 2021-10-24 12:03 | NM ---
EXAMINATION TYPE: NM hepatobiliary w CCK DATE OF EXAM: 10/24/2021 COMPARISON: Correlation CT 10/22/2021 HISTORY: 81 year-old female elevated lipase TECHNIQUE: After the intravenous administration of 5.08 mCi Tc 99m Mebrofenin hepatobiliary scintigra phy is performed. Immediate images post injection. FINDINGS: There is satisfactory initial accumulation of tracer by the liver. The gallbladder is visualized wit hin 12 minutes. Small bowel activity is not identified up to 2.5 hours. Given the lack of biliary du ctal dilatation or gallbladder hydrops on recent CT, decision is made to proceed with injection of 1. 1 mcg of Kinevac to induce gallbladder contraction. Small bowel activity is subsequently visualized a nd ejection fraction is calculated at 83%, increased. IMPRESSION: 1. No scintigraphic evidence for acute/chronic cholecystitis or biliary dyskinesia. 2. Increased gallbladder ejection fraction of 83% may be seen with gallbladder hyperkinesis.
--- NOTE | 2021-10-24 13:26 | P.DS ---
Providers Date of admission: 10/22/21 14:05 Expected date of discharge: 10/24/21 Attending physician: Yessica Castellanos MD Consults: 10/22/21 13:58 Consult Physician Routine Consulting Provider: Radha Mirza Consult Reason/Comments: acute pancreatitis, HIDA scan scheduled for tomorrow Do you want consulting provider notified?: Yes Primary care physician: Caden Castillo MD Hospital Course: Diverticulitis Elevated lipase- suspect secondary to vomiting. Hypokalemia HTN HLD CKD III at baseline Memory impairment Hx of multiple falls Patient is an 81 y CF with a hx of HTN, HLD, and pancreatitis who presented to the ED with complaints of abdominal pain. In the ER she underwent a CT abdomen and pelvis which showed mild inflammatory changes in the left lower quadrant, multiple colonic diverticuli with inflammatory changes, consistent with acute diverticulitis. Laboratory analysis demonstrated potassium of 3.2, creatinine 1.39 (at baseline), and elevated lipase at 1347. She was given a dose of Augmentin and multiple doses of Dilaudid. She was given a 1 L bolus. Arrangements are made for admission. Patients pain and appetite improved by foll owing day, and patient had a soft BM by day of discharge. Also seen and cleared by GI for the same. She will receive total 7 day course of Augmentin and PCP f/u. HIDA scan done for elevated lipase was normal. I spent 38 minutes coordinating this discharge. Gen: awake, alert HEENT: normocephalic, atraumatic, good hearing acuity, moist mucous membranes Resp: good air exchange, breathing comfortably with no accessory muscle use CVS: good distal perfusion x 4, GI: soft, NTTP, ND : no SPT, no CVAT, ayoub catheter not present MSK: no pitting edema, no clubbing Neuro: non-focal, moving all extremities Psych: cooperative, euthymic mood Patient Condition at Discharge: Good Plan - Discharge Summary New Discharge Prescriptions: New Amoxic-Pot Clav 875-125Mg [Augmentin 875-125] 1 tab PO BID #10 tab Acetaminophen Tab [Tylenol] 650 mg PO Q6HR PRN tab PRN Reason: Mild Pain Or Fever > 100.5 Continue Travoprost [Travatan Z 0.004%] 1 drop BOTH EYES HS Metoprolol Tartrate [Lopressor] 25 mg PO DAILY Isosorbide Mononitrate [Isosorbide Mononitrate ER] 30 mg PO DAILY Atorvastatin [Lipitor] 20 mg PO HS buPROPion XL [Wellbutrin XL] 150 mg PO DAILY Donepezil [Aricept] 5 mg PO DAILY Discharge Medication List Atorvastatin [Lipitor] 20 mg PO HS 02/05/17 [History] Isosorbide Mononitrate [Isosorbide Mononitrate ER] 30 mg PO DAILY 02/05/17 [History] Metoprolol Tartrate [Lopressor] 25 mg PO DAILY 02/05/17 [History] Travoprost [Travatan Z 0.004%] 1 drop BOTH EYES HS 02/05/17 [History] Donepezil [Aricept] 5 mg PO DAILY 08/28/21 [History] buPROPion XL [Wellbutrin XL] 150 mg PO DAILY 08/28/21 [History] Acetaminophen Tab [Tylenol] 650 mg PO Q6HR PRN tab 10/24/21 [Rx] Amoxic-Pot Clav 875-125Mg [Augmentin 875-125] 1 tab PO BID #10 tab 10/24/21 [Rx] Follow up Appointment(s)/Referral(s): Caden Castillo MD [Primary Care Provider] - 10/29/21 3:00 pm Patient Instructions/Handouts: Amoxicillin/Clavulanate Potassium (By mouth), Pancreatitis (DC) Discharge Disposition: HOME WITH HOME HEALTH SERVICES
--- NOTE | 2021-10-24 13:38 | P.PN ---
Progress Note - Text Progress Note Date: 10/24/21 Attempted to see patient this morning. She was down for HIDA scan. Went back to see her this afternoon and patient had been discharged per primary medicine team. Dr. Alex Mirza I agree with the dictator's note, documented as a scribe by Anitha Valles.
== END 2021-10-24 13:15 | disposition home or self-care (01) | DRG 392 ==
LOC: EC 09:45 → 5NMEDONC 14:05
PROVIDERS: ADMIT Family Medicine; ATTEND Family Medicine
DX: K57.32 Diverticulitis of large intestine without perforation or abscess without bleeding (principal); F06.8 Other specified mental disorders due to known physiological condition; E78.5 Hyperlipidemia, unspecified; N18.30 Chronic kidney disease, stage 3 unspecified; I12.9 Hypertensive chronic kidney disease with stage 1 through stage 4 chronic kidney disease, or unspecified chronic kidney disease; K63.89 Other specified diseases of intestine; K82.4 Cholesterolosis of gallbladder; R00.1 Bradycardia, unspecified; E87.6 Hypokalemia; H40.9 Unspecified glaucoma; R29.6 Repeated falls; Z79.899 Other long term (current) drug therapy; Z90.710 Acquired absence of both cervix and uterus; Z91.81 History of falling; Z88.5 Allergy status to narcotic agent; Z82.49 Family history of ischemic heart disease and other diseases of the circulatory system; Z80.9 Family history of malignant neoplasm, unspecified
CPT/HCPCS: 36415; 74176; 78227; 80053; 81001; 82150; 83690; 83735; 84484; 85025; 85027; 85610; 85730; 93005; 96361; 96365; 96375; 96376; 99285

== ENCOUNTER 2021-11-19 11:51 | Day surgery (SDC) | payer MEDICARE, OTHER ==
[2021-11-18 08:48] VITALS: BMI 24.2
[~2021-11-19 11:51] MED LIST changes: +DEXAMETHASONE SOD PHOSPHATE 4 MG/ML 1 ML VIAL IV ONE; +HEPARIN SODIUM,PORCINE/PF 5,000 UNIT/0.5 ML SYRINGE SQ PRN; +MIDAZOLAM 2 MG/2 ML VIAL IV PRN; +ONDANSETRON 4 MG/2 ML VIAL IVP ONE; -SODIUM CHLORIDE 0.9% 500 ML 500 ML in EMPTY BAG 1 BAG IV PRN; -ZOLEDRONIC ACID 5 MG in SODIUM CHLORIDE 0.9% 100 ML IV NR
[2021-11-19] MEDS: LACTATED RINGERS 1,000 ML IV SCH ×2 (12:31→19:30)
[2021-11-19] MEDS ORDERED: INDOCYANINE GREEN 25 MG VIAL IV ONE (13:01)
[2021-11-19] MEDS ORDERED: LIDOCAINE 2% INJ 20 MG/ML (2 ML VIAL) ONE (13:01)
[2021-11-19] MEDS ORDERED: SUCCINYLCHOLINE CHLORIDE 200 MG/10 ML VIAL IV ONE (13:01)
[2021-11-19] MEDS ORDERED: KETOROLAC 15 MG/ML 1 ML VIAL ONE (13:01)
[2021-11-19] MEDS ORDERED: PROPOFOL 10 MG/ML 20 ML VIAL IV ONE (13:01)
[2021-11-19] MEDS ORDERED: fentaNYL (PF) 50 MCG/ML 2 ML AMP ONE (13:01)
[2021-11-19] MEDS ORDERED: ROCURONIUM 10 MG/ML (5 ML VIAL) IV ONE (13:01)
[2021-11-19] MEDS ORDERED: ePHEDrine 50 MG/ML 1 ML VIAL ONE (13:01)
[2021-11-19] MEDS ORDERED: BUPIVACAIN-EPI 0.25%-1:200,000 30 ML VIAL SQ ONE (13:32)
[2021-11-19] MEDS ORDERED: LACTATED RINGERS 1,000 ML IV ONE ×2 (14:16→15:22)
--- NOTE | 2021-11-19 14:18 | P.OP ---
Date of Procedure: 11/19/21 Preoperative Diagnosis: Pancreatitis of biliary etiology Biliary dyskinesia/hyperkinesia Postoperative Diagnosis: Pancreatitis of biliary etiology Biliary dyskinesia/hyperkinesis Procedure(s) Performed: Robotic cholecystectomy Anesthesia: MINA Surgeon: Vashti Wood Pathology: other (Gallbladder) Condition: stable Disposition: same day Indications for Procedure: 81-year-old female had multiple hospital admissions secondary to concern for pancreatitis and abdominal pain. There was concern that there was biliary etiology behind the pancreatitis. Patient also was noted to have some hyperkinesis of the gallbladder. Long discussion was had with the patient and patient's daughter along with the patient's on risks of surgical intervention and success rates. Patient and patient's family were adamant on moving forward for gallbladder removal. Risks, benefits and alternatives were provided. Operative Findings: Distended gallbladder with multiple omental adhesions Description of Procedure: The patient was brought to the operating suite and placed in supine position on the operating table. Sedation was achieved and patient underwent endotracheal intubation. She was then prepped and draped in regular sterile fashion. An infraumbilical incision was made dissection was carried to the fascia. The fascia was incised and an 8 mm trocar was placed. Immediately, it was noted the patient did have multiple midline adhesions. 2 additional 8 mm ports were placed in the right lower quadrant and one was placed in the left upper quadrant. On exam, the midline port did not appear to have traveled through any adhesions or bowel. The gallbladder was then grasped and retracted appropriately. Dissection was carried along the infundibulum of the gallbladder towards the cystic duct. Both the cystic duct and cystic artery were skel etonized. ICG technology was used to confirm. Pictures were taken. 2 clips were placed proximally on the cystic artery one was placed distally and the cystic artery was ligated. Similarly, 2 clips were placed proximally and the cystic duct and one distally and the cystic duct was ligated. Dissection was then carried using cautery to remove the gallbladder from the gallbladder fossa. Hemostasis was maintained. The gallbladder was then removed from the abdomen using a 5 mm Endo Catch bag. Suction and irrigation was placed in the right upper quadrant. No evidence of bleeding or bile leak. The infraumbilical fascial site was then closed with [id number] Vicryl suture. All ports removed from the abdomen. Wounds were then closed with 4-0 Vicryl subcuticular suture. Sterile dressing was applied. Sponge and instrument count were correct 2. Patient was awakened in the operating suite and taken to postanesthesia care unit in stable condition.
[2021-11-19] MEDS: fentaNYL (PF) 50 MCG/ML 2 ML AMP IV PRN ×2 (15:15→15:31)
[2021-11-19] MEDS ORDERED: ACETAMINOPHEN TAB 325 MG TAB PO PRN (17:48)
[2021-11-19] MEDS ORDERED: MORPHINE SULFATE 2 MG/ML SYRINGE IVP STA (17:58)
[2021-11-19] MEDS ORDERED: MORPHINE SULFATE 4 MG/ML SYRINGE ONE (18:07)
[2021-11-19] MEDS ORDERED: MORPHINE SULFATE 4 MG/ML SYRINGE IVP ONE (18:15)
--- NOTE | 2021-11-19 23:15 | P.CONS ---
History of Present Illness - Reason for Consult Consult date: 11/19/21 - History of Present Illness The patient is an 81-year-old female with a PMH of hypertension, hyperlipidemia, chronic kidney disease stage III, memory impairment, and pancreatitis who was admitted to the hospital for a scheduled robotic cholecystectomy. The patient underwent the procedure earlier today no immediate postoperative palpitations. She reported excellent control of her pain at the time of interview, rated at a 0 out of 10. She reports not having gotten out of bed as of yet and has not had a bowel movement or passed status. She denied experiencing sore throat, shortness of breath, fever, chills, nausea, vomiting, abdominal pain, diarrhea. She does report mild incision pain. Review of systems: Pertinent positives and negatives as discussed in HPI, a complete review of systems was performed and all other systems are negative. Physical examination: General: non toxic, no distress, appears at stated age, normal weight Derm: no unusual rashes/lesions, warm Head: atraumatic, normocephalic, symmetric Eyes: EOMI, no lid lag, anicteric sclera, pupils equal round reactive to light ENT: Nose and ears atraumatic Neck: No cervical lymphadenopathy, trachea midline, supple Mouth: no lip lesion, mucus membranes moist Cardiovascular: S1S2 reg, no murmur, positive dorsalis pedis pulse bilateral, no edema Lungs: CTA bilateral, no rhonchi, no rales, no accessory muscle use Abdominal: soft, nontender to palpation, no guarding, robotic cholecystectomy incisions noted Ext: muscle strength 5 out of 5 in all 4 extremities grossly, no gross muscle atrophy, no contractures, Neuro: CN II-XI grossly intact, no gross focal neuro deficits Psych: Alert, oriented, appropriate affect Assessment/plan Chronic conditions: Hypertension, hyperlipidemia, memory impairment, chronic kidney disease -Continue with home meds Status post robotic cholecystectomy -Defer management including pain control and DVT prophylaxis to the primary surgery service We appreciate this opportunity to be involved in this patient's care. We will follow the patient with you. For any further questions, please not hesitate to contact the sound inpatient team. Past Medical History Past Medical History: Chest Pain / Angina, Eye Disorder, Hyperlipidemia, Hypertension Additional Past Medical History / Comment(s): GLAUCOMA History of Any Multi-Drug Resistant Organisms: None Reported Past Surgical History: Breast Surgery, Hysterectomy, Orthopedic Surgery Additional Past Surgical History / Comment(s): RIGHT ROTATOR CUFF REPAIR. RT FOOT BUNIONECTOMY, LEFT BREAST BX Past Anesthesia/Blood Transfusion Reactions: Postoperative Nausea & Vomiting (PONV) Smoking Status: Never smoker - Past Family History Mother Additional Family Medical History / Comment(s): MOTHER, CABG AND PACEMAKER Son(s) Family Medical History: Cancer Medications and Allergies Home Medications Medication Instructions Recorded Confirmed Type Atorvastatin [Lipitor] 20 mg PO HS 02/05/17 11/19/21 History Isosorbide Mononitrate [Isosorbide 30 mg PO DAILY 02/05/17 11/19/21 History Mononitrate ER] Metoprolol Tartrate [Lopressor] 25 mg PO DAILY 02/05/17 11/19/21 History Donepezil [Aricept] 5 mg PO DAILY 08/28/21 11/19/21 History buPROPion XL [Wellbutrin XL] 150 mg PO DAILY 08/28/21 11/19/21 History Losartan Potassium [Cozaar] 100 mg PO DAILY 11/18/21 11/19/21 History Potassium Chloride [Potassium 10 meq PO DAILY 11/18/21 11/19/21 History Chloride ER] Spironolactone [Aldactone] 0.5 tab PO DAILY 11/18/21 11/19/21 History traMADol HCL 50 mg PO Q8H PRN #12 tab 11/19/21 Rx Allergies Allergy/AdvReac Type Severity Reaction Status Date / Time codeine AdvReac Hallucinations, Verified 11/19/21 12:28 "makes me loopy" Physical Exam Vitals: Vital Signs Temp Pulse Pulse Resp BP Pulse Ox 11/19/21 22:00 71 18 130/57 97 11/19/21 21:30 63 18 130/44 98 11/19/21 21:00 61 18 134/63 98 11/19/21 20:45 67 18 148/68 96 11/19/21 20:30 73 18 130/56 99 11/19/21 20:15 76 18 123/68 99 11/19/21 20:00 97.7 F 61 18 130/57 98 11/19/21 18:16 57 L 18 117/58 100 11/19/21 17:23 50 L 20 120/57 99 11/19/21 16:40 50 L 20 118/60 98 11/19/21 16:04 51 L 20 107/65 100 11/19/21 15:48 51 L 20 112/45 98 11/19/21 15:35 58 L 16 117/57 97 11/19/21 15:20 58 L 16 118/59 98 11/19/21 15:05 67 16 118/58 97 11/19/21 14:50 76 16 128/61 96 11/19/21 14:36 83 16 155/68 95 11/19/21 14:21 96.9 F L 88 16 164/72 95 11/19/21 12:14 96.9 F L 48 L 18 149/65 99 Intake and Output 11/19/21 11/19/21 11/20/21 14:59 22:59 06:59 Intake Total 2049 950 Output Total Balance 2044 950 Intake: IV 2049 950 Output: Estimated Blood Loss 5 Other: Weight 54.8 kg 54.8 kg
[2021-11-20] MEDS: LACTATED RINGERS 1,000 ML IV SCH ×2 (05:23→09:13)
[2021-11-20 05:37] VITALS: RESP 16
[2021-11-20] MEDS ORDERED: HEPARIN SODIUM,PORCINE/PF 5,000 UNIT/0.5 ML SYRINGE SQ SCH (08:30)
[2021-11-20] MEDS ORDERED: POTASSIUM CHLORIDE ER 10 MEQ TAB.ER.PRT PO SCH (09:00)
[2021-11-20] MEDS ORDERED: DONEPEZIL 5 MG TAB PO SCH (09:00)
[2021-11-20] MEDS ORDERED: ISOSORBIDE MONONITRATE ER 30 MG TAB.ER.24H PO SCH (09:00)
[2021-11-20] MEDS ORDERED: LOSARTAN 50 MG TAB PO SCH (09:00)
[2021-11-20] MEDS ORDERED: METOPROLOL TARTRATE 25 MG TAB PO SCH (09:00)
[2021-11-20] MEDS ORDERED: SPIRONOLACTONE 25 MG TAB PO SCH (09:00)
[2021-11-20] MEDS ORDERED: buPROPion XL 150 MG TAB.ER.24H PO SCH (09:00)
[2021-11-20 11:57] VITALS: BP 135/67; PULSE 57; TEMP 97.6
--- NOTE | 2021-11-20 12:53 | P.DS ---
Providers Attending physician: Vashti Wood DO Consults: 11/19/21 17:46 Consult Physician Urgent Consulting Provider: Petra Morales Reason/Comments: MEDICAL MANAGEMENT. Do you want consulting provider notified?: Yes Primary care physician: Caden Castillo MD Hospital Course: 81-year-old female presented for an elective cholecystectomy. Originally, plan was for same-day surgery with discharge planned. However, patient was quite weak and somnolent coming off of anesthesia in the PACU. Secondary to safety concerns at home, patient was admitted overnight. Overnight, she regained a significant amount of her energy. She was followed by physical therapy in the morning and was noted to be safe for discharge home with plan for walker at home.On exam today, patient is not having any significant pain. She is tolerating a diet and appetite is slowly improving. She is surgically stable for discharge. She has also been followed by internal medicine. Procedures: Robotic cholecystectomy Patient Condition at Discharge: Fair Plan - Discharge Summary Discharge Rx Participant: No New Discharge Prescriptions: New traMADol HCL 50 mg PO Q8H PRN #12 tab PRN Reason: Pain Continue Metoprolol Tartrate [Lopressor] 25 mg PO DAILY Isosorbide Mononitrate [Isosorbide Mononitrate ER] 30 mg PO DAILY Atorvastatin [Lipitor] 20 mg PO HS buPROPion XL [Wellbutrin XL] 150 mg PO DAILY Spironolactone [Aldactone] 0.5 tab PO DAILY Donepezil [Aricept] 5 mg PO DAILY Losartan Potassium [Cozaar] 100 mg PO DAILY Potassium Chloride [Potassium Chloride ER] 10 meq PO DAILY Discharge Medication List Atorvastatin [Lipitor] 20 mg PO HS 02/05/17 [History] Isosorbide Mononitrate [Isosorbide Mononitrate ER] 30 mg PO DAILY 02/05/17 [History] Metoprolol Tartrate [Lopressor] 25 mg PO DAILY 02/05/17 [History] Donepezil [Aricept] 5 mg PO DAILY 08/28/21 [History] buPROPion XL [Wellbutrin XL] 150 mg PO DAILY 08/28/21 [History] Losartan Potassium [Cozaar] 100 mg PO DAILY 11/18/21 [History] Potassium Chloride [Potassium Chloride ER] 10 meq PO DAILY 11/18/21 [History] Spironolactone [Aldactone] 0.5 tab PO DAILY 11/18/21 [History] traMADol HCL 50 mg PO Q8H PRN #12 tab 11/19/21 [Rx] Follow up Appointment(s)/Referral(s): [facility], [NON-STAFF] - 1 Week Vashti Wood DO [Doctor of Osteopathic Medicine] - 12/09/21 11:30 am Patient Instructions/Handouts: *Surgery [facility] - (Anesthesia) Discharge Instructions Outpatient Surgery, Laparoscopic Cholecystectomy (DC) Activity/Diet/Wound Care/Special Instructions: No lifting greater than 5 pounds Stay on a low-fat diet Take pain medication as needed okay to shower beginning 11/20/2021 Discharge Disposition: HOME SELF-CARE
--- NOTE | 2021-11-20 18:22 | P.PN ---
Subjective Progress Note Date: 11/20/21 Hospital course: Patient is a very pleasant 81-year-old female with a past medical history of hypertension, hyperlipidemia, stage III chronic kidney disease, Alzheimer's dementia with memory impairment, and pancreatitis. She is currently admitted to the hospital under general surgery team status post elective robotic-assisted laparoscopic cholecystectomy completed 11/19/21. We were consulted for medical management throughout patient's hospitalization. Physical exam: Patient seen and fully evaluated at bedside this morning. Patient appeared to be doing well. She reports "I'm ready to go home". Patient reports tolerating oral intake and denies having any episodes of postoperative nausea and vomiting. patient reports urinating without any difficulties and denies having bowel movement as of yet this morning. Patient reports postoperative pain is controlled, stating I barely feel anything. Patient's at bedside reports the patient has been ambulating to and from bathroom and in the [place] without any difficulties. Vital signs are unremarkableinpatient shows no signs of acute distress at this time. Patient medically stable for discharge once cleared by primary admitting general surgery team. Vital signs reviewed and stable. General: Nontoxic, no distress and appears stated age. Derm: Skin warm and dry, normal coloration for ethnicity. Head: Atraumatic, normocephalic and symmetric. Eyes: EOMs intact, no lid lag, and anicteric sclera Mouth: no lip lesions, mucus membranes moist Cardiovascular: regular rate and rhythm with normal S1S2, no murmur, positive posterior tibial pulses bilaterally, and cap refill < 2 seconds. Lungs: Respirations even, regular, and unlabored on room air. Lungs CTA bilaterally, no rhonchi, no rales, no wheezing, and no accessory muscle usage. Abdominal: soft, nontender to palpation, no guarding, no appreciable or ganomegaly Ext: ROM intact. No gross muscle atrophy, no edema, no contractures Neuro: Speech clear, face symmetrical and CN II-XII grossly intact with no noted focal neuro deficits Psych: Alert and oriented to person, place, time, and situation. Appropriate and pleasant affect. Assessment and Plan of Care: Status post laparoscopic cholecystectomy -Management per primary admitting general surgery team including pain management, DVT prophylaxis, and advancement of diet. Hypertension -Monitor vital signs and Continue daily medication regimen with losartan, metoprolol, and isosorbide mononitrate. Hyperlipidemia -Continue daily medication regimen with Atorvastatin. Alzheimer's dementia with memory impairment -Continue daily medication regimen with Aricept. -Provide safe and supportive care with redirection and/or assistance as needed. Thank you for allowing us to participate in the care of this pleasant patient. Do not hesitate to contact us with questions. Someone can be reached from the [facility] hospitalist group all hours of the day at [phone] or via perfect serve. Objective - Vital Signs Vital signs: Vital Signs Temp 98.1 F 11/20/21 05:00 Pulse 75 11/20/21 05:00 Resp 16 11/20/21 05:00 BP 121/61 11/20/21 05:00 Pulse Ox 97 11/20/21 05:00 FiO2 Intake & Output 11/19/21 11/20/21 11/20/21 18:59 06:59 18:59 Intake Total 3000 1500 Output Total 5 Balance 2995 1500 Weight 54.8 kg 54.8 kg Intake: IV 3000 Intake, IV Titration 900 Amount Lactated Ringers 1,000 ml 900 @ 75 mls/hr IV .[id number] [facility] Rx#:[id number] Oral 600 Output: Estimated Blood Loss 5 Other: Voiding Method Bedpan # Voids 1
[2021-11-20] MEDS ORDERED: ATORVASTATIN 20 MG TAB PO SCH (21:00)
== END 2021-11-20 14:51 | disposition home or self-care (01) ==
LOC: OR 11:51 → 5NMEDONC 14:15 → OR 11-20 14:51
PROVIDERS: ATTEND Surgery
DX: K81.1 Chronic cholecystitis (principal); K66.0 Peritoneal adhesions (postprocedural) (postinfection); E78.5 Hyperlipidemia, unspecified; I12.9 Hypertensive chronic kidney disease with stage 1 through stage 4 chronic kidney disease, or unspecified chronic kidney disease; N18.30 Chronic kidney disease, stage 3 unspecified; G30.9 Alzheimer's disease, unspecified; F02.80 Dementia in other diseases classified elsewhere, unspecified severity, without behavioral disturbance, psychotic disturbance, mood disturbance, and anxiety; Z79.899 Other long term (current) drug therapy; Z88.5 Allergy status to narcotic agent; Z82.49 Family history of ischemic heart disease and other diseases of the circulatory system; Z80.9 Family history of malignant neoplasm, unspecified
CPT/HCPCS: 97162; 88304; 47562; J0330; J2270; J1100; J0690; J2405; J3010; J1885; J2704; J1644 ×2; J2001

== ENCOUNTER → 2021-12-20 | Outpatient (CLI) | payer MEDICARE, OTHER ==
--- NOTE | 2021-12-20 12:29 | XR ---
EXAMINATION TYPE: XR bone survey complete DATE OF EXAM: 12/20/2021 COMPARISON: NONE HISTORY: monoclonal gammopathy Bony calvarium : 2 views of the bony calvarium demonstrate no evidence for lytic or osteoblastic lesi on. Single view of the chest fails demonstrate evidence for lytic or osteoblastic lesion of the ribs. The lungs are clear. Spine: Two views of the cervical, thoracic and lumbar spines are submitted. There are degenerative c hanges seen throughout. No compression fractures are noted. No evidence for lytic or blastic lesion. PELVIS: Single view of the pelvis demonstrates no evidence for lytic or blastic lesion. UPPER EXTREMITIES: Two views of the upper extremities no evidence for lytic or blastic lesion. LOWER EXTREMITIES: 2 views of the lower extremities no evidence for lytic or blastic lesion. IMPRESSION: No evidence for lytic or blastic lesion.
== END | disposition home or self-care (01) ==
LOC: RADXRMAIN 11:21
PROVIDERS: ATTEND Internal Medicine Hematology & Oncology
DX: D47.2 Monoclonal gammopathy (principal)
CPT/HCPCS: 77075

== ENCOUNTER 2022-04-12 09:56 | Observation (INO) | payer MEDICARE, OTHER ==
[2022-04-12] MEDS ORDERED: SODIUM CHLORIDE 0.9% 500 ML 500 ML IV STA (10:25)
[2022-04-12 10:57] LABS: Basophils # (A) 0.1 k/uL (0-0.2); Basophils % (A) 1 %; Eosinophils % (A) 0 %; HCT 43.9 % (34.0-46.0); HGB 14.5 gm/dL (11.4-16.0); Lymphocytes # (A) 0.8 k/uL (1.0-4.8); Lymphocytes % (A) 8 %; MCH 29.9 pg (25.0-35.0); MCHC 33.1 g/dL (31.0-37.0); MCV 90.5 fL (80.0-100.0); Monocytes # (A) 0.6 k/uL (0-1.0); Monocytes % (A) 5 %; Neutrophils # (A) 9.1 k/uL (1.3-7.7); Neutrophils % (A) 86 %; Platelet Count 186 k/uL (150-450); RBC 4.86 m/uL (3.80-5.40); RDW 13.1 % (11.5-15.5); WBC 10.7 k/uL (3.8-10.6)
--- NOTE | 2022-04-12 11:10 | CT ---
EXAMINATION TYPE: CT abdomen pelvis wo con DATE OF EXAM: 04/12/2022 COMPARISON: 10/22/2021 HISTORY: Lower abdominal pain CT DLP: 371.2 mGycm Automated exposure control for dose reduction was used. TECHNIQUE: Helical acquisition of images was performed from the lung bases through the pelvis. FINDINGS: The lung bases are clear. There are surgical absence of gallbladder. There is no organomegaly involving pancreas, spleen or adrenal glands. There are no renal calcifications or hydronephrosis Caliber the common aorta is normal. There is marked atherosclerotic calcification of the aorta. The bowel loops are normal in caliber and there is no dilatation or obstruction. There are no inflamm atory changes in the bowel wall. A small oval-shaped mesenteric vague density is again seen in the mi d mesentery but it has not changed compared to the prior study. As noted on the prior study could pos sibly represent epiploic appendicitis which is stable. There is diverticulosis of the sigmoid colon. No CT evidence of acute diverticulitis. There is no pelvic mass or adenopathy. There are surgical absence of the uterus. IMPRESSION: No change in the small mesenteric hazy density as described above. Marked diverticulosis of sigmoid c olon without CT evidence of acute diverticulitis.
[2022-04-12 11:14] LABS: Albumin 3.9 g/dL (3.5-5.0); Calcium 9.8 mg/dL (8.4-10.2); Potassium 4.1 mmol/L (3.5-5.1); Total Protein 6.2 g/dL (6.3-8.2)
--- NOTE | 2022-04-12 11:18 | ED ---
Abdominal Pain HPI - General Chief Complaint: Abdominal Pain Stated Complaint: Abd Pain Time Seen by Provider: 04/12/22 10:12 Source: patient, RN notes reviewed Mode of arrival: ambulatory Limitations: no limitations - History of Present Illness Initial Comments: 82-year-old female presents emergency Department chief complaint of left lower quadrant abdominal pain states started around 4 AM this morning. Patient states that nothing really makes it feel better or worse states she presses over the area hurts she denies any dysuria hematuria she had some loose stool noted. Patient denies any reported fever no chest pain or shortness of breath denies abdominal pain no back pain - Related Data Home Medications Medication Instructions Recorded Confirmed Atorvastatin [Lipitor] 20 mg PO HS 02/05/17 11/19/21 Isosorbide Mononitrate [Isosorbide 30 mg PO DAILY 02/05/17 11/19/21 Mononitrate ER] Metoprolol Tartrate [Lopressor] 25 mg PO DAILY 02/05/17 11/19/21 Donepezil [Aricept] 5 mg PO DAILY 08/28/21 11/19/21 buPROPion XL [Wellbutrin XL] 150 mg PO DAILY 08/28/21 11/19/21 Losartan Potassium [Cozaar] 100 mg PO DAILY 11/18/21 11/19/21 Potassium Chloride [Potassium 10 meq PO DAILY 11/18/21 11/19/21 Chloride ER] Spironolactone [Aldactone] 0.5 tab PO DAILY 11/18/21 11/19/21 Previous Rx's Medication Instructions Recorded traMADol HCL 50 mg PO Q8H PRN #12 tab 11/19/21 Allergies Allergy/AdvReac Type Severity Reaction Status Date / Time codeine AdvReac Hallucinations, Verified 04/12/22 10:09 "makes me loopy" Review of Systems ROS Statement: Those systems with pertinent positive or pertinent negative responses have been documented in the HPI. ROS Other: All systems not noted in ROS Statement are negative. Past Medical History Past Medical History: Chest Pain / Angina, Eye Disorder, Hyperlipidemia, Hypertension Additional Past Medical History / Comment(s): GLAUCOMA History of Any Multi-Drug Resistant Organisms: None Reported Past Surgical History: Breast Surgery, Hysterectomy, Orthopedic Surgery Additional Past Surgical History / Comment(s): RIGHT ROTATOR CUFF REPAIR. RT FOOT BUNIONECTOMY, LEFT BREAST BX Past Anesthesia/Blood Transfusion Reactions: Postoperative Nausea & Vomiting (PONV) Past Psychological History: No Psychological Hx Reported Smoking Status: Never smoker Past Alcohol Use History: None Reported Past Drug Use History: None Reported - Past Family History Mother Additional Family Medical History / Comment(s): MOTHER, CABG AND PACEMAKER Son(s) Family Medical History: Cancer General Exam Limitations: no limitations General appearance: alert, in no apparent distress Head exam: Present: atraumatic, normocephalic, normal inspection Eye exam: Present: normal appearance, PERRL, EOMI. Absent: scleral icterus, conjunctival injection, periorbital swelling ENT exam: Present: normal exam, mucous membranes moist Neck exam: Present: normal inspection, full ROM. Absent: tenderness, meningismus, lymphadenopathy Respiratory exam: Present: normal lung sounds bilaterally. Absent: respiratory distress, wheezes, rales, rhonchi, stridor Cardiovascular Exam: Present: regular rate, normal rhythm, normal heart sounds. Absent: systolic murmur, diastolic murmur, rubs, gallop, clicks GI/Abdominal exam: Present: soft, tenderness (Left lower quadrant), normal bowel sounds. Absent: distended, guarding, rebound, rigid Course Vital Signs 04/12/22 10:07 Temperature 98 F Pulse Rate 54 L Respiratory 18 Rate Blood Pressure 159/60 O2 Sat by Pulse 100 Oximetry Medical Decision Making - Medical Decision Making Was pt. sent in by a medical professional or institution (, PA, ANALYTICAL CHEMISTRY TEACHER, urgent care, hospital, or senior care...) When possible be specific @ -No Did you speak to anyone other than the patient for history (EMS, parent, family, police, friend...)? What history was obtained from this source @ -No Did you review nursing and triage notes (agree or disagree)? Why? @ -I reviewed and agree with nursing and triage notes Were old charts reviewed (outside hosp., previous admission, EMS record, old EKG, old radiological studies, urgent care reports/EKG's, senior care records)? Report findings @ -No old charts were reviewed Differential Diagnosis (chest pain, altered mental status, abdominal pain women, abdominal pain men, vaginal bleeding, weakness, fever, dyspnea, syncope, headache, dizziness, GI bleed, back pain, seizure, CVA, palpatations, mental health)? @ -Diverticulitis, colitis, pancreatitis, bowel obstruction, this list is on conclusive EKG interpreted by me (3pts min.). @ -None X-rays interpreted by me (1pt min.). @ -None done CT interpreted by me (1pt min.). @ -CT does not show any acute changes there is diverticulosis, mesenteric haziness which was seen on prior CT U/S interpreted by me (1pt. min.). @ -None done What testing was considered but not performed or refused? (CT, X-rays, U/S, labs)? Why? @ -None What meds were considered but not given or refused? Why? @ -None Did you discuss the management of the patient with other professionals (alyson busch i.e. , PA, ANALYTICAL CHEMISTRY TEACHER, lab, RT, psych nurse, clinical social work therapist, copy machine operator, teacher, customs patrol officer, rn case manager)? Give summary @ -Dr. Edwards hospitalist Was smoking cessation discussed for >3mins.? @ -No Was critical care preformed (if so, how long)? @ -No Were there social determinants of health that impacted care today? How? (Homelessness, low income, unemployed, alcoholism, drug addiction, transportation, low edu. Level, literacy, decrease access to med. care, fci, rehab)? @ -No Was there de-escalation of care discussed even if they declined (Discuss DNR or withdrawal of care, Hospice)? DNR status @ -No What co-morbidities impacted this encounter? (DM, HTN, Smoking, COPD, CAD, Cancer, CVA, ARF, Chemo, Hep., AIDS, mental health diagnosis, sleep apnea, morbid obesity)? @ -None Was patient admitted / discharged? Hospital course, mention meds given and route, prescriptions, significant lab abnormalities, going to OR and other pertinent info. @ -Admitted patient has significant elevated lipase with no real cause patient has had some intermittent nausea, abdominal pain. Patient had cholecystectomy as this was thought to be the issue. Patient be admitted for IV fluid hydration, pain control, nausea control Undiagnosed new problem with uncertain prognosis? @ -No Drug Therapy requiring intensive monitoring for toxicity (Heparin, Nitro, Insulin, Cardizem)? @ -No Were any procedures done? @ -No Diagnosis/symptom? @ -Pancreatitis Acute, or Chronic, or Acute on Chronic? @ -Acute Uncomplicated (without systemic symptoms) or Complicated (systemic symptoms)? @ -Complicated Side effects of treatment? @ -No Exacerbation, Progression, or Severe Exacerbation? @ -No Poses a threat to life or bodily function? How? (Chest pain, [place], ND, pneumonia, PE, COPD, DKA, ARF, appy, cholecystitis, CVA, Diverticulitis, Homicidal, Suicidal, threat to staff... and all critical care pts) @ -No - Lab Data Result diagrams: 04/12/22 10:37 04/12/22 10:37 Lab Results 04/12/22 04/12/22 04/12/22 Range/Units 10:37 10:37 10:37 WBC 10.7 H (3.8-10.6) k/uL RBC 4.86 (3.80-5.40) m/uL Hgb 14.5 (11.4-16.0) gm/dL Hct 43.9 (34.0-46.0) % MCV 90.5 (80.0-100.0) fL MCH 29.9 (25.0-35.0) pg MCHC 33.1 (31.0-37.0) g/dL RDW 13.1 (11.5-15.5) % Plt Count 186 (150-450) k/uL MPV 9.0 Neutrophils % 86 % Lymphocytes % 8 % Monocytes % 5 % Eosinophils % 0 % Basophils % 1 % Neutrophils # 9.1 H (1.3-7.7) k/uL Lymphocytes # 0.8 L (1.0-4.8) k/uL Monocytes # 0.6 (0-1.0) k/uL Eosinophils # 0.0 (0-0.7) k/uL Basophils # 0.1 (0-0.2) k/uL Sodium 137 (137-145) mmol/L Potassium 4.1 (3.5-5.1) mmol/L Chloride 106 (98-107) mmol/L Carbon Dioxide 27 (22-30) mmol/L Anion Gap 4 mmol/L BUN 23 H (7-17) mg/dL Creatinine 1.12 H (0.52-1.04) mg/dL Est GFR (CKD-EPI)AfAm 53 (>60 ml/min/1.73 sqM) Est GFR (CKD-EPI)NonAf 46 (>60 ml/min/1.73 sqM) Glucose 138 H (74-99) mg/dL Plasma Lactic Acid Gabriel (0.7-2.0) mmol/L Calcium 9.8 (8.4-10.2) mg/dL Total Bilirubin 1.0 (0.2-1.3) mg/dL AST 216 H (14-36) U/L ALT 131 H (4-34) U/L Alkaline Phosphatase 125 (38-126) U/L Total Protein 6.2 L (6.3-8.2) g/dL Albumin 3.9 (3.5-5.0) g/dL Lipase 6846 H (23-300) U/L Urine Color Colorless Urine Appearance Clear (Clear) Urine pH 5.0 (5.0-8.0) Ur Specific Nicolaus 1.006 (1.001-1.035) Urine Protein Negative (Negative) Urine Glucose (UA) Negative (Negative) Urine Ketones Negative (Negative) Urine Blood Negative (Negative) Urine Nitrite Negative (Negative) Urine Bilirubin Negative (Negative) Urine Urobilinogen <2.0 (<2.0) mg/dL Ur Leukocyte Esterase Negative (Negative) 04/12/22 Range/Units 10:37 WBC (3.8-10.6) k/uL RBC (3.80-5.40) m/uL Hgb (11.4-16.0) gm/dL Hct (34.0-46.0) % MCV (80.0-100.0) fL MCH (25.0-35.0) pg MCHC (31.0-37.0) g/dL RDW (11.5-15.5) % Plt Count (150-450) k/uL MPV Neutrophils % % Lymphocytes % % Monocytes % % Eosinophils % % Basophils % % Neutrophils # (1.3-7.7) k/uL Lymphocytes # (1.0-4.8) k/uL Monocytes # (0-1.0) k/uL Eosinophils # (0-0.7) k/uL Basophils # (0-0.2) k/uL Sodium (137-145) mmol/L Potassium (3.5-5.1) mmol/L Chloride (98-107) mmol/L Carbon Dioxide (22-30) mmol/L Anion Gap mmol/L BUN (7-17) mg/dL Creatinine (0.52-1.04) mg/dL Est GFR (CKD-EPI)AfAm (>60 ml/min/1.73 sqM) Est GFR (CKD-EPI)NonAf (>60 ml/min/1.73 sqM) Glucose (74-99) mg/dL Plasma Lactic Acid Gabriel 1.2 (0.7-2.0) mmol/L Calcium (8.4-10.2) mg/dL Total Bilirubin (0.2-1.3) mg/dL AST (14-36) U/L ALT (4-34) U/L Alkaline Phosphatase (38-126) U/L Total Protein (6.3-8.2) g/dL Albumin (3.5-5.0) g/dL Lipase (23-300) U/L Urine Color Urine Appearance (Clear) Urine pH (5.0-8.0) Ur Specific Nicolaus (1.001-1.035) Urine Protein (Negative) Urine Glucose (UA) (Negative) Urine Ketones (Negative) Urine Blood (Negative) Urine Nitrite (Negative) Urine Bilirubin (Negative) Urine Urobilinogen (<2.0) mg/dL Ur Leukocyte Esterase (Negative) Disposition Clinical Impression: Pancreatitis Disposition: ADMITTED IP TO THIS HOSP Referrals: Brant Topete MD [Primary Care Provider] - 1-2 days Time of Disposition: 13:32
[2022-04-12 11:21] LABS: Appearance,Urine Clear (Clear); Bilirubin,Urine Negative (Negative); Blood,Urine Negative (Negative); Color,Urine Colorless; Glucose,Urine (UA) Negative (Negative); Ketones,Urine Negative (Negative); Leukocyte Esterase,Urine Negative (Negative); Nitrite,Urine Negative (Negative); Protein,Urine Negative (Negative); Specific Gravity,Urine 1.006 (1.001-1.035); Urobilinogen,Urine <2.0 mg/dL (<2.0)
[2022-04-12] MEDS ORDERED: KETOROLAC 15 MG/ML 1 ML VIAL IVP PRN (13:32)
[2022-04-12] MEDS ORDERED: HYDROcodone/APAP 5-325MG 1 EACH TAB PO PRN ×2 (13:32→14:42)
[2022-04-12] MEDS ORDERED: NALOXONE 0.4 MG/ML 1 ML VIAL IV PRN (13:32)
[2022-04-12] MEDS ORDERED: SODIUM CHLORIDE 0.9% 1,000 ML IV SCH (13:45)
--- NOTE | 2022-04-12 14:40 | P.HPIM ---
History of Present Illness H&P Date: 04/12/22 Patient is a 82-year-old female with history of chronic pancreatitis, hypertension, dyslipidemia, chronic kidney disease, memory impairment presenting for abdominal pain. The abdominal pain began 4 AM this morning, was 8/10, diffuse, mostly epigastric, dull in nature, has been constant. She claims that this pain is different for her previous abdominal pain. She denies any alcohol use, smoking, or illicit drug use. In the ED, patient has been slightly bradycardic in the 50s, rest of the vital signs are otherwise within normal limits. Laboratory workup showed WBC count of 10.7, creatinine 1.12 at baseline, elevated AST at 216, ALT 131, ALP within normal limits, lipase 6846. Urinalysis was negative. Abdominal pelvis CT showed marked diverticulosis of sigmoid colon without any evidence of acute diverticulitis, normal pancreas, status post cholecystectomy. Patient seen and examined at bedside. Pertinent positives and negatives as discussed in HPI, a complete review of systems was performed and all other systems are negative. Vital signs reviewed General: nontoxic, no distress, appears at stated age Derm: warm, dry Head: atraumatic, normocephalic, symmetric Eyes: EOMI, no lid lag, anicteric sclera, pupils equal round reactive to light ENT: Nose and ears atraumatic Neck: No thyromegaly, supple Mouth: no lip lesion, mucus membranes moist Cardiovascular: S1S2 reg, no murmur, no edema Lungs: clear to auscultation bilateral, no rhonchi, no rales, no wheeze, no accessory muscle use Abdominal: soft, mild tender to palpation in the epigastric region, no gua rding, no appreciable organomegaly Ext: no gross muscle atrophy, muscle strength muscle strength 5 out of 5 in all 4 extremities, no contractures Neuro: CN II-XII grossly intact Psych: Alert, oriented, appropriate affect Assessment/Plan: Acute pancreatitis Acute abdominal pain Elevated lipase Transaminitis - IV fluids - Encourage oral intake - Patient already had cholecystectomy - No CT evidence of pancreatitis, however given epigastric abdominal pain and elevated lipase, likely as pancreatitis Diverticulosis -No evidence of diverticulitis Chronic medical problems: Dementia Dyslipidemia Hypertension Chronic kidney disease -Continue home medications The patient is admitted with an anticipated less than 2 midnight stay for evaluation of abdominal pain. Surrogate decision-maker: Spouse CODE STATUS: Full code DVT prophylaxis: Subcu heparin Anticipated discharge date: 1-[address]: Home A total of 55 minutes was spent on the care of this complex patient more than 50% of the time was spent in counseling and care coordination. Past Medical History Past Medical History: Chest Pain / Angina, Eye Disorder, Hyperlipidemia, Hypertension Additional Past Medical History / Comment(s): GLAUCOMA History of Any Multi-Drug Resistant Organisms: None Reported Past Surgical History: Breast Surgery, Hysterectomy, Orthopedic Surgery Additional Past Surgical History / Comment(s): RIGHT ROTATOR CUFF REPAIR. RT FOOT BUNIONECTOMY, LEFT BREAST BX Past Anesthesia/Blood Transfusion Reactions: Postoperative Nausea & Vomiting (PONV) Past Psychological History: No Psychological Hx Reported Smoking Status: Never smoker Past Alcohol Use History: None Reported Past Drug Use History: None Reported - Past Family History Mother Additional Family Medical History / Comment(s): MOTHER, CABG AND PACEMAKER Son(s) Family Medical History: Cancer Medications and Allergies Home Medications Medication Instructions Recorded Confirmed Type Atorvastatin [Lipitor] 20 mg PO HS 02/05/17 11/19/21 History Isosorbide Mononitrate [Isosorbide 30 mg PO DAILY 02/05/17 11/19/21 History Mononitrate ER] Metoprolol Tartrate [Lopressor] 25 mg PO DAILY 02/05/17 11/19/21 History Donepezil [Aricept] 5 mg PO DAILY 08/28/21 11/19/21 History buPROPion XL [Wellbutrin XL] 150 mg PO DAILY 08/28/21 11/19/21 History Losartan Potassium [Cozaar] 100 mg PO DAILY 11/18/21 11/19/21 History Potassium Chloride [Potassium 10 meq PO DAILY 11/18/21 11/19/21 History Chloride ER] Spironolactone [Aldactone] 0.5 tab PO DAILY 11/18/21 11/19/21 History traMADol HCL 50 mg PO Q8H PRN #12 tab 11/19/21 Rx Allergies Allergy/AdvReac Type Severity Reaction Status Date / Time codeine AdvReac Hallucinations, Verified 04/12/22 10:09 "makes me loopy" Physical Exam Vitals: Vital Signs Temp Pulse Resp BP Pulse Ox 04/12/22 13:42 54 L 18 112/48 98 04/12/22 13:00 58 L 18 114/70 98 04/12/22 10:07 98 F 54 L 18 159/60 100 Intake and Output 04/11/22 04/12/22 04/12/22 22:59 06:59 14:59 Other: Weight 54.431 kg Results CBC & Chem 7: 04/12/22 10:37 04/12/22 10:37 Labs: Abnormal Lab Results - Last 24 Hours (Table) 04/12/22 04/12/22 Range/Units 10:37 10:37 WBC 10.7 H (3.8-10.6) k/uL Neutrophils # 9.1 H (1.3-7.7) k/uL Lymphocytes # 0.8 L (1.0-4.8) k/uL BUN 23 H (7-17) mg/dL Creatinine 1.12 H (0.52-1.04) mg/dL Glucose 138 H (74-99) mg/dL AST 216 H (14-36) U/L ALT 131 H (4-34) U/L Total Protein 6.2 L (6.3-8.2) g/dL Lipase 6846 H (23-300) U/L
[2022-04-12] MEDS: LACTATED RINGERS 1,000 ML IV SCH ×2 (14:54→20:11)
[2022-04-12] MEDS: HEPARIN SODIUM,PORCINE/PF 5,000 UNIT/0.5 ML SYRINGE SQ SCH (20:12)
[2022-04-12] MEDS ORDERED: LATANOPROST 0.005% OPHTH DROPS 2.5 ML BTL BOTH EYES SCH (21:00)
[2022-04-12] MEDS ORDERED: DONEPEZIL 10 MG TAB PO SCH (21:00)
[2022-04-13] MEDS: LACTATED RINGERS 1,000 ML IV SCH ×2 (04:11→12:02)
[2022-04-13 07:29] VITALS: BP 118/43; PULSE 59; RESP 18; TEMP 97.9
[2022-04-13] MEDS: HEPARIN SODIUM,PORCINE/PF 5,000 UNIT/0.5 ML SYRINGE SQ SCH (08:18)
[2022-04-13] MEDS ORDERED: METOPROLOL TARTRATE 25 MG TAB PO SCH (09:00)
[2022-04-13] MEDS ORDERED: ISOSORBIDE MONONITRATE ER 30 MG TAB.ER.24H PO SCH (09:00)
[2022-04-13] MEDS ORDERED: amLODIPine 10 MG TAB PO SCH (09:00)
[2022-04-13] MEDS ORDERED: TORSEMIDE 20 MG TAB PO SCH (09:00)
[2022-04-13] MEDS ORDERED: POTASSIUM CHLORIDE ER 10 MEQ TAB.ER.PRT PO SCH (09:00)
[2022-04-13] MEDS ORDERED: SPIRONOLACTONE 25 MG TAB PO SCH (09:00)
[2022-04-13] MEDS ORDERED: buPROPion XL 150 MG TAB.ER.24H PO SCH (09:00)
[2022-04-13] MEDS ORDERED: ATORVASTATIN 20 MG TAB PO SCH (09:00)
--- NOTE | 2022-04-13 12:57 | P.DS ---
Providers Date of admission: 04/12/22 13:32 Expected date of discharge: 04/13/22 Attending physician: Sp Edwards MD Primary care physician: Brant Topete MD Hospital Course: Discharge Diagnosis: Acute pancreatitis Acute abdominal pain Elevated lipase Transaminitis Diverticulosis Hospital Course: Patient is a 82-year-old female with history of chronic pancreatitis, hypertension, dyslipidemia, chronic kidney disease, memory impairment presenting for abdominal pain. In the ED, patient has been slightly bradycardic in the 50s, rest of the vital signs are otherwise within normal limits. Laboratory workup showed WBC count of 10.7, creatinine 1.12 at baseline, elevated AST at 216, ALT 131, ALP within normal limits, lipase 6846. Urinalysis was negative. Abdominal pelvis CT showed marked diverticulosis of sigmoid colon without any evidence of acute diverticulitis, normal pancreas, status post cholecystectomy. Patient was given IV fluids. Abdominal pain improved. Patient able to tolerate oral diet. She will follow up with GI as an outpatient. Patient seen and examined at bedside. Vital signs reviewed and stable. General: nontoxic, no distress, appears at stated age Derm: warm, dry Head: atraumatic, normocephalic, symmetric Eyes: EOMI, no lid lag, anicteric sclera Mouth: no lip lesion, mucus membranes moist Cardiovascular: S1S2 reg, no murmur Lungs: CTA bilateral, no rhonchi, no rales , no accessory muscle use Abdominal: soft, nontender to palpation, no guarding, no appreciable organomegaly Ext: no gross muscle atrophy, no edema, no contractures Neuro: CN II-XI grossly intact, no focal neuro deficits Psych: Alert, oriented, appropriate affect A total of 36 minutes of time were spent preparing this complex discharge summary. Patient was discharged on 04/13/22 at 11:07. Patient Condition at Discharge: Stable Plan - Discharge Summary New Discharge Prescriptions: Continue Metoprolol Tartrate [Lopressor] 25 mg PO DAILY Isosorbide Mononitrate [Isosorbide Mononitrate ER] 30 mg PO DAILY Atorvastatin [Lipitor] 20 mg PO DAILY buPROPion XL [Wellbutrin XL] 150 mg PO DAILY Spironolactone [Aldactone] 12.5 mg PO DAILY Travoprost [Travoprost 0.004%] 1 drop BOTH EYES HS Potassium Chloride [Potassium Chloride ER] 10 meq PO DAILY amLODIPine [Norvasc] 10 mg PO DAILY Donepezil HCl [Aricept] 10 mg PO HS Torsemide [Demadex] 5 mg PO DAILY Discharge Medication List Atorvastatin [Lipitor] 20 mg PO DAILY 02/05/17 [History] Isosorbide Mononitrate [Isosorbide Mononitrate ER] 30 mg PO DAILY 02/05/17 [History] Metoprolol Tartrate [Lopressor] 25 mg PO DAILY 02/05/17 [History] buPROPion XL [Wellbutrin XL] 150 mg PO DAILY 08/28/21 [History] Potassium Chloride [Potassium Chloride ER] 10 meq PO DAILY 11/18/21 [History] Spironolactone [Aldactone] 12.5 mg PO DAILY 11/18/21 [History] Donepezil HCl [Aricept] 10 mg PO HS 04/12/22 [History] Torsemide [Demadex] 5 mg PO DAILY 04/12/22 [History] Travoprost [Travoprost 0.004%] 1 drop BOTH EYES HS 04/12/22 [History] amLODIPine [Norvasc] 10 mg PO DAILY 04/12/22 [History] Follow up Appointment(s)/Referral(s): Brant Topete MD [Primary Care Provider] - 1-2 days Radha Mirza MD [STAFF PHYSICIAN] - 1 Week Patient Instructions/Handouts: Pancreatitis (DC) Activity/Diet/Wound Care/Special Instructions: Please see your PCP as soon as possible. Discharge Disposition: HOME SELF-CARE
== END 2022-04-13 12:25 | disposition home or self-care (01) ==
LOC: EC 09:56 → 6NMEDSUR 13:32
PROVIDERS: ADMIT Student in an Organized Health Care Education/Training Program; ATTEND Student in an Organized Health Care Education/Training Program
DX: K85.90 Acute pancreatitis without necrosis or infection, unspecified (principal); I12.9 Hypertensive chronic kidney disease with stage 1 through stage 4 chronic kidney disease, or unspecified chronic kidney disease; N18.9 Chronic kidney disease, unspecified; K86.1 Other chronic pancreatitis; K57.90 Diverticulosis of intestine, part unspecified, without perforation or abscess without bleeding; E78.5 Hyperlipidemia, unspecified; H40.9 Unspecified glaucoma; R74.8 Abnormal levels of other serum enzymes; R74.01 Elevation of levels of liver transaminase levels; R00.1 Bradycardia, unspecified; F03.90 Unspecified dementia, unspecified severity, without behavioral disturbance, psychotic disturbance, mood disturbance, and anxiety; Z79.899 Other long term (current) drug therapy; Z88.5 Allergy status to narcotic agent; Z90.710 Acquired absence of both cervix and uterus; Z98.890 Other specified postprocedural states; Z90.49 Acquired absence of other specified parts of digestive tract; Z82.49 Family history of ischemic heart disease and other diseases of the circulatory system; Z80.9 Family history of malignant neoplasm, unspecified
CPT/HCPCS: 96372 ×2; 96360; 96361; 99285; 36415; 80053; 83605; 83690; 85025; 81003; 74176; G0378 ×2; J1644 ×2

== ENCOUNTER → 2023-03-13 | Outpatient (CLI) | payer MEDICARE, OTHER ==
--- NOTE | 2023-03-17 07:52 | CT ---
EXAMINATION TYPE: CT brain wo con DATE OF EXAM: 03/13/2023 COMPARISON: 07/20/2020 HISTORY: 83-year-old female M21.371, Weakness. Rt side foot drop. TECHNIQUE: Examination was done in axial plane without intravenous contrast. Coronal and sagittal r econstructions performed. CT DLP: 1111.4 mGycm Automated exposure control for dose reduction was used. FINDINGS: There is no evidence of acute intracranial hemorrhage, acute ischemic changes, mass, mass-effect, or extra-axial fluid collection. There is no effacement of cerebral sulci or basal subarachnoid cister ns. There is no midline shift. Abbasi-white matter distinction is preserved. Atherosclerotic calcifications in the carotid siphons. Redemonstrated lacunar infarct right side of the ventral midbrain. Mild cerebral cortical volume loss overlying the bilateral cerebral convexities. Mild ventricular pro minence is similar, likely secondary to some central cerebral atrophy. Mild periventricular white mat ter hypodensities are demonstrated. There There is asymmetric soft tissue along the left palatine tonsillar pillar that may be positional or co uld represent an underlying callosal lesion. Recommend direct visualization. Refer to axial image 2. Trace mucosal thickening floors of the maxillary sinuses. Orbits and globes are intact. Mastoid air c ells are well pneumatized. IMPRESSION: 1. Mild to moderate generalized supratentorial volume loss. Secondary mild prominence to the ventricu lar system is similar. 2. Mild patchy burden of chronic small vessel ischemic disease. Old lacunar infarct ventral right mid brain. 3. No acute intracranial abnormality seen. 4. Asymmetric soft tissue along the left palatine tonsillar pillar that may be positional. Advice dir ect visualization to exclude a mucosal lesion/tonsillar mass.
== END | disposition home or self-care (01) ==
LOC: RADCTMAIN 14:41
PROVIDERS: ATTEND Family Medicine
DX: I67.82 Cerebral ischemia (principal); M79.89 Other specified soft tissue disorders; M21.371 Foot drop, right foot
CPT/HCPCS: 70450

== ENCOUNTER → 2023-03-19 | Outpatient (CLI) | payer MEDICARE, OTHER ==
[2023-03-19 11:13] LABS: African American GFR (CKD) 45 (>60 ml/min/1.73 sqM); Blood Urea Nitrogen 29 mg/dL (7-17); Non-African American GFR(CKD) 39 (>60 ml/min/1.73 sqM)
--- NOTE | 2023-03-19 12:52 | CT ---
EXAMINATION TYPE: CT soft tissue neck w con CT DLP: 459 mGycm, Automated exposure control for dose reduction was used. DATE OF EXAM: 03/19/2023 11:35 AM COMPARISON: None. CLINICAL INDICATION:Female, 83 years old with history of J35.9 LESION OF TONSIL; PHH, lesion of tonsi l TECHNIQUE: Standard enhanced CT of the neck. Axial sections with coronal and sagittal reformats were obtained. Contrast used:80 mL of Isovue 300 with IV Contrast, (None if empty) Oral contrast used: (None if empty) FINDINGS: Brain: Visualized portions are grossly unremarkable. Orbits: Bilateral aphakia. Sinuses: Grossly unremarkable. Spaces of the neck: Mild asymmetric left palatine tonsil thickening compared to the right.. Focal mas s not definitively appreciated. Musculoskeletal: No acute osseous pathology. Lymph nodes: Multiple nonenlarged lymph nodes are seen along both anterior chains of the neck. Vascular structures: Patent with atherosclerotic plaque of the internal carotid arteries at the bifur cation. Thoracic Inlet/airway: Airway is patent. The lung apices are clear. Soft tissues/Thyroid: Thyroid and remainder of the soft tissues are unremarkable. Other: none. IMPRESSION Mild left asymmetric palatine tonsil thickening compared to the right. Correlate with direct visualiz ation. No evidence for lymphadenopathy.
== END | disposition home or self-care (01) ==
LOC: RADCTMAIN 10:05
PROVIDERS: ATTEND Family Medicine
DX: J35.9 Chronic disease of tonsils and adenoids, unspecified (principal)
CPT/HCPCS: 82565; 84520; 70491; 36415; Q9967

== ENCOUNTER 2023-11-10 19:22 | Emergency (ER) | payer MEDICARE, OTHER ==
[2023-11-10] MEDS ORDERED: ACETAMINOPHEN TAB 500 MG TAB ONE (22:52)
[2023-11-11] MEDS ORDERED: FERROUS SULFATE 325 MG TAB PO ONE (09:06)
[2023-11-11] MEDS ORDERED: ATORVASTATIN 20 MG TAB ONE (09:06)
[2023-11-11] MEDS ORDERED: METOPROLOL TARTRATE 25 MG TAB ONE (09:06)
[2023-11-11] MEDS ORDERED: ISOSORBIDE MONONITRATE ER 30 MG TAB.ER.24H PO ONE (09:07)
[2023-11-11] MEDS ORDERED: SERTRALINE 50 MG TAB ONE (09:07)
[2023-11-11] MEDS ORDERED: SPIRONOLACTONE 25 MG TAB ONE (09:07)
[2023-11-11] MEDS ORDERED: MEMANTINE 10 MG TAB ONE (09:07)
[2023-11-11] MEDS ORDERED: QUEtiapine 25 MG TAB ONE (09:07)
[2023-11-11] MEDS ORDERED: buPROPion XL 150 MG TAB.ER.24H PO ONE (09:08)
--- NOTE | 2023-12-01 13:52 | CT ---
Patient: Mony Godfrey Ordering Physician: Unknown, Unknown ID: [id number] Phone, Pager: Phone : N/A Pager: N/A : [phone] Age/Gender: 83Y, F Primary Location: N/A Procedure: L-SPINE WO Study Date: 11/10/2023 9:03:47 PM EXAMINATION TYPE: CT lumbar spine wo con CT DLP: 835 mGycm, Automated exposure control for dose reduction was used. DATE OF EXAM: 11/10/2023 9:48 PM COMPARISON: 04/12/2022. CLINICAL INDICATION: Pain TECHNIQUE: Multiple axial images were obtained from the midportion of T11 through the sacroiliac nicci nts. Soft tissue and bone windows in coronal and sagittal planes were obtained and reviewed. Contrast used: mL of , (None, if empty). Oral contrast used: (None, if empty). FINDINGS: Alignment: There are 5 lumbar type vertebral bodies within normal alignment. Transitional vertebrae p resent at L5 with sacralization bilaterally. Bone: Multilevel degeneration changes with joint space and osteophyte formation facet arthropathy. No evidence of fracture. The sacrum and coccyx appear intact. Discs: T12-L1: No spinal canal or neural foraminal stenosis is identified. L1-L2: No spinal canal or neural foraminal stenosis is identified. L2-L3: No spinal canal or neural foraminal stenosis is identified. L3-L4: Facet joint arthropathy and disc bulging result with mild spinal canal stenosis and mild to mo derate bilateral neural foraminal stenosis. L4-L5: No spinal canal or neural foraminal stenosis is identified. L5-S1: No spinal canal or neural foraminal stenosis is identified. Other: Severe atherosclerosis of the arterial vasculature. Right simple appearing renal cysts. The ga llbladder surgically absent. Scattered colonic diverticula. IMPRESSION: 1. No evidence for spinal fracture. 2. Moderate multilevel degeneration changes throughout the spine with neural foraminal stenosis worse at L3-L4 with mild/moderate bilateral neural foraminal stenosis. 3. Colonic diverticulosis.
== END 2023-11-11 15:10 | disposition home or self-care (01) ==
LOC: EC 19:22
CPT/HCPCS: 70450; 72125; 72131; 99284

== ENCOUNTER 2024-01-19 19:37 | Emergency (ER) | payer MEDICARE, OTHER ==
[2024-01-19 19:50] VITALS: TEMP 97.5
[2024-01-19 21:17] LABS: Basophils % (A) 0 %; Eosinophils # (A) 0.2 k/uL (0-0.7); Eosinophils % (A) 2 %; HCT 36.3 % (34.0-46.0); HGB 11.9 gm/dL (11.4-16.0); Lymphocytes % (A) 10 %; MCH 30.3 pg (25.0-35.0); MCHC 32.9 g/dL (31.0-37.0); MCV 92.1 fL (80.0-100.0); Monocytes # (A) 0.4 k/uL (0-1.0); Monocytes % (A) 4 %; Neutrophils # (A) 8.1 k/uL (1.3-7.7); Neutrophils % (A) 83 %; Platelet Count 144 k/uL (150-450); RBC 3.94 m/uL (3.80-5.40); RDW 12.9 % (11.5-15.5); WBC 9.8 k/uL (3.8-10.6)
[2024-01-19] MEDS: SODIUM CHLORIDE 0.9% 500 ML 500 ML IV STA (21:20)
[2024-01-19 21:29] LABS: Partial Thromboplastin Time 22.6 sec (22.0-30.0); Prothrombin Time 11.2 sec (10.0-12.5)
[2024-01-19 21:30] LABS: ALT 16 U/L (4-34); AST 24 U/L (14-36); African American GFR (CKD) 46 (>60 ml/min/1.73 sqM); Albumin 3.3 g/dL (3.5-5.0); Alkaline Phosphatase 124 U/L (38-126); Anion Gap 6 mmol/L; Blood Urea Nitrogen 25 mg/dL (7-17); Calcium 9.2 mg/dL (8.4-10.2); Carbon Dioxide 26 mmol/L (22-30); Chloride 105 mmol/L (98-107); Glucose 113 mg/dL (74-99); Magnesium 1.6 mg/dL (1.6-2.3); Non-African American GFR(CKD) 40 (>60 ml/min/1.73 sqM); Potassium 3.3 mmol/L (3.5-5.1); Sodium 137 mmol/L (137-145); Total Bilirubin 0.4 mg/dL (0.2-1.3); Total Protein 5.5 g/dL (6.3-8.2)
--- NOTE | 2024-01-19 22:03 | CT ---
EXAMINATION TYPE: CT brain carlosine wo con DATE OF EXAM: 01/19/2024 COMPARISON: 11/10/2023 HISTORY: Fall. CT DLP: 1300.5 mGycm, Automated exposure control for dose reduction was used. CONTRAST: Patient injected with 0 mL of Isovue 300. CT of the brain is performed utilizing 3 mm thick sections through the posterior fossa and 3 mm thick sections through the remaining calvarium. Study is performed within 24 hours of arrival to the hospital. No abnormal hyperdensity is present to suggest an acute intracranial hemorrhage. No mass lesion is evident. No acute infarcts are evident. Minimal periventricular white matter hypodensity is present, likely o n basis of chronic white matter ischemic changes. Ventricles and sulci are somewhat prominent for the patient age. Paranasal sinuses and mastoid air cells within the [id number] are clear. IMPRESSIONS: 1. No acute intracranial process. Follow-up MRI can be performed as clinically indicated. 2. Soft tissue swelling posterior occiput. 3. Chronic appearing periventricular white matter ischemic changes with mild atrophy CT cervical spine. COMPARISON: None CT of the cervical spine is performed in the axial plane at 2 mm thick sections. Reconstructed image s in the coronal, and sagittal plane are reviewed on the computer. No acute fractures are evident. Vertebral body alignment is normal. No spondylolisthesis. There is narrowing of disc height throughout the cervical spine. This is greatest at C5-6 with vacuum disc phenomenon. Vertebral body heights are preserved. No spinal canal stenosis is evident. Uncovertebral joint hypertrophy at C5-6 has a moderate left and mild right foraminal narrowing. Facet changes are present. IMPRESSION: 1. No acute osseous abnormalities cervical spine. 2. Degenerative disc changes greatest C5-6. 3. Foraminal narrowing C5-6 [facility], Workstation: [facility], 01/19/2024 10:00 PM
--- NOTE | 2024-01-19 22:34 | XR ---
EXAMINATION TYPE: XR chest 2V DATE OF EXAM: 01/19/2024 COMPARISON: 07/20/2020 INDICATION: Weakness TECHNIQUE: Frontal and lateral views of the chest are obtained. FINDINGS: The heart size is somewhat prominent. The pulmonary vasculature is normal. The lungs are clear. There is a right shoulder prosthesis IMPRESSION: 1. No acute pulmonary process. [facility], Workstation: [facility], 01/19/2024 10:31 PM
[2024-01-19] MEDS: POTASSIUM CHLORIDE ER 20 MEQ TAB.ER PO STA (22:44)
--- NOTE | 2024-01-19 22:44 | ED ---
Fall HPI - General Chief Complaint: Fall Stated Complaint: Fall-Head Injury Time Seen by Provider: 01/19/24 19:55 Source: patient, family Mode of arrival: wheelchair - History of Present Illness Initial Comments: 83-year-old female presenting for evaluation post fall. Patient lives at [facility] home, she was found on the floor near the bathroom. Daughter states this could not have been for more than a few minutes. Fall was unwitnessed, patient was conscious when found. No blood thinners. She does have a hematoma to the back of her head. No bleeding or laceration. Patient does have history of dementia. She is currently on doxycycline for treatment of cough, she had a previous chest x-ray which showed a small effusion according to her daughter. No fever. She denies abdominal pain, nausea, vomiting. No chest pain or difficulty breathing. Denies neck pain. - Related Data Home Medications Medication Instructions Recorded Confirmed Atorvastatin [Lipitor] 20 mg PO DAILY 02/05/17 04/12/22 Isosorbide Mononitrate [Isosorbide 30 mg PO DAILY 02/05/17 04/12/22 Mononitrate ER] Metoprolol Tartrate [Lopressor] 25 mg PO DAILY 02/05/17 04/12/22 buPROPion XL [Wellbutrin XL] 150 mg PO DAILY 08/28/21 04/12/22 Potassium Chloride [Potassium 10 meq PO DAILY 11/18/21 04/12/22 Chloride ER] Spironolactone [Aldactone] 12.5 mg PO DAILY 11/18/21 04/12/22 Donepezil HCl [Aricept] 10 mg PO HS 04/12/22 04/12/22 Torsemide [Demadex] 5 mg PO DAILY 04/12/22 04/12/22 Travoprost [Travoprost 0.004%] 1 drop BOTH EYES HS 04/12/22 04/12/22 amLODIPine [Norvasc] 10 mg PO DAILY 04/12/22 04/12/22 Allergies Allergy/AdvReac Type Severity Reaction Status Date / Time codeine AdvReac Hallucinations, Verified 01/19/24 19:50 "makes me loopy" Review of Systems ROS Statement: Those systems with pertinent positive or pertinent negative responses have been documented in the HPI. ROS Other: All systems not noted in ROS Statement are negative. Past Medical History Past Medical History: Chest Pain / Angina, Eye Disorder, Hyperlipidemia, Hypertension Additional Past Medical History / Comment(s): GLAUCOMA History of Any Multi-Drug Resistant Organisms: None Reported Past Surgical History: Breast Surgery, Hysterectomy, Orthopedic Surgery Additional Past Surgical History / Comment(s): RIGHT ROTATOR CUFF REPAIR. RT FOOT BUNIONECTOMY, LEFT BREAST BX Past Anesthesia/Blood Transfusion Reactions: Postoperative Nausea & Vomiting (PONV) Past Psychological History: No Psychological Hx Reported Smoking Status: Never smoker Past Alcohol Use History: None Reported Past Drug Use History: None Reported - Past Family History Mother Additional Family Medical History / Comment(s): MOTHER, CABG AND PACEMAKER Son(s) Family Medical History: Cancer General Exam General appearance: alert, in no apparent distress Head exam: Present: atraumatic, normocephalic, normal inspection Eye exam: Present: normal appearance, PERRL, EOMI. Absent: periorbital swelling Neck exam: Present: normal inspection, full ROM. Absent: tenderness Respiratory exam: Present: normal lung sounds bilaterally. Absent: respiratory distress, wheezes, rales, rhonchi, stridor Cardiovascular Exam: Present: regular rate, normal rhythm, normal heart sounds. Absent: systolic murmur, diastolic murmur, rubs, gallop, clicks Neurological exam: Present: alert (Patient is pleasantly confused, history of dementia, ) Expanded Speech: Present: fluid speech Cranial nerves: EOM's Intact: Normal Cerebellar function: Finger to Nose: Normal, Heel to Dowd: Normal Sensory exam: Upper Extremity Light Touch: Normal, Lower Extremity Light Touch: Normal Motor strength exam: RUE: 5, LUE: 5, RLE: 5, LLE: 5 Eye Response: (4) open spontaneously Motor Response: (6) obeys commands Verbal Response: (5) oriented Nat Total: 15 Psychiatric exam: Present: normal affect, normal mood Skin exam: Present: warm, dry Course Vital Signs 01/19/24 01/19/24 01/19/24 19:43 22:00 23:00 Temperature 97.5 F L Pulse Rate 54 L 59 L 57 L Respiratory 18 13 14 Rate Blood Pressure 166/61 148/51 128/49 O2 Sat by Pulse 96 97 99 Oximetry Medical Decision Making - Medical Decision Making Was pt. sent in by a medical professional or institution (Dr., PA, CRAPS DEALER, urgent care, hospital, or [facility]...) When possible be specific @ -assisted Did you speak to anyone other than the patient for history (EMS, parent, family, police, friend...)? What history was obtained from this source @ -Daughter at bedside Did you review nursing and triage notes (agree or disagree)? Why? @ -I reviewed and agree with nursing and triage notes Were old charts reviewed (outside hosp., previous admission, EMS record, old EKG, old radiological studies, urgent care reports/EKG's, [facility] records)? Report findings @ -No old charts were reviewed Differential Diagnosis (chest pain, altered mental status, abdominal pain women, abdominal pain men, vaginal bleeding, weakness, fever, dyspnea, syncope, headache, dizziness, GI bleed, back pain, seizure, CVA, palpatations, mental health, musculoskeletal)? @ -Differential includes uncomplicated head injury, concussion, fracture, hemorrhage, this is not an all-inclusive list EKG interpreted by me (3pts min.). @ -Sinus bradycardia ventricular rate 53. MO interval 126. QRS 86. QT 470. QTc 452. X-rays interpreted by me (1pt min.). @ -Chest x-ray shows no acute pulmonary process CT interpreted by me (1pt min.). @ -CT shows no acute intracranial process. Soft tissue swelling posterior occiput. Chronic appearing. Ventricular white matter ischemic changes with mild atrophy generative disc changes greatest C5-6. Foraminal narrowing C5-6 U/S interpreted by me (1pt. min.). @ -None done What testing was considered but not performed or refused? (CT, X-rays, U/S, labs)? Why? @ -None What meds were considered but not given or refused? Why? @ -None Did you discuss the management of the patient with other professionals (professionals i.e. GARCIA Black, CRAPS DEALER, lab, RT, psych nurse, social sciences instructor, events and promotions assistant, teacher, chief analytics officer, block and case maker)? Give summary @ -No Was smoking cessation discussed for >3mins.? @ -No Was critical care preformed (if so, how long)? @ -No Were there social determinants of health that impacted care today? How? (Homelessness, low income, unemployed, alcoholism, drug addiction, transportation, low edu. Level, literacy, decrease access to med. care, detention, rehab)? @ -No Was there de-escalation of care discussed even if they declined (Discuss DNR or withdrawal of care, Hospice)? DNR status @ -No What co-morbidities impacted this encounter? (DM, HTN, Smoking, COPD, CAD, Cancer, CVA, ARF, Chemo, Hep., AIDS, mental health diagnosis, sleep apnea, morbid obesity)? @ -None Was patient admitted / discharged? Hospital course, mention meds given and route, prescriptions, significant lab abnormalities, going to OR and other pertinent info. @ -83-year-old female presenting for evaluation after unwitnessed fall at her [facility]. No blood thinners. History and physical examination are conducted. No focal neurological deficits. No leukocytosis or anemia. BUN 25 creatinine 1.24, this is consistent with her baseline values, history of chronic kidney disease. Negative on EKG shows no ST deviation. Chest x-ray shows no acute process and CT shows no acute intracranial process or cervical spine fracture. I offered to perform a UA, family tells me that the patient just started another round of antibiotics due to chronic UTIs, they would prefer to continue treatment and then have her urine rechecked by her provider at the [facility] home, I believe this is reasonable. Patient will be monitored appropriately at her [facility]. Family feels comfortable with discharge at this time. Follow-up with PCP. Report back to ER with any new or worsening symptoms. Discussed return parameters and answered all questions. Patient conveyed verbal understanding and agreed to the plan. I discussed this case in detail with my attending Dr. Will Undiagnosed new problem with uncertain prognosis? @ -No Drug Therapy requiring intensive monitoring for toxicity (Heparin, Nitro, Insulin, Cardizem)? @ -No Were any procedures done? @ -No Diagnosis/symptom? @ -Fall, head injury, scalp hematoma Acute, or Chronic, or Acute on Chronic? @ -Acute Uncomplicated (without systemic symptoms) or Complicated (systemic symptoms)? @ -Uncomplicated Side effects of treatment? @ -No Exacerbation, Progression, or Severe Exacerbation? @ -No Poses a threat to life or bodily function? How? (Chest pain, [place], [place], pneumonia, PE, COPD, DKA, ARF, appy, cholecystitis, CVA, Diverticulitis, Homicidal, Suicidal, threat to staff... and all critical care pts) @ -Low likelihood at this time - Lab Data Result diagrams: 01/19/24 21:10 01/19/24 21:10 Lab Results 01/19/24 01/19/24 01/19/24 Range/Units 21:10 21:10 21:10 WBC 9.8 (3.8-10.6) k/uL RBC 3.94 (3.80-5.40) m/uL Hgb 11.9 (11.4-16.0) gm/dL Hct 36.3 (34.0-46.0) % MCV 92.1 (80.0-100.0) fL MCH 30.3 (25.0-35.0) pg MCHC 32.9 (31.0-37.0) g/dL RDW 12.9 (11.5-15.5) % Plt Count 144 L (150-450) k/uL MPV 9.0 Neutrophils % 83 % Lymphocytes % 10 % Monocytes % 4 % Eosinophils % 2 % Basophils % 0 % Neutrophils # 8.1 H (1.3-7.7) k/uL Lymphocytes # 1.0 (1.0-4.8) k/uL Monocytes # 0.4 (0-1.0) k/uL Eosinophils # 0.2 (0-0.7) k/uL Basophils # 0.0 (0-0.2) k/uL PT 11.2 (10.0-12.5) sec INR 1.0 (<1.2) APTT 22.6 (22.0-30.0) sec Sodium 137 (137-145) mmol/L Potassium 3.3 L (3.5-5.1) mmol/L Chloride 105 (98-107) mmol/L Carbon Dioxide 26 (22-30) mmol/L Anion Gap 6 mmol/L BUN 25 H (7-17) mg/dL Creatinine 1.24 H (0.52-1.04) mg/dL Est GFR (CKD-EPI)AfAm 46 (>60 ml/min/1.73 sqM) Est GFR (CKD-EPI)NonAf 40 (>60 ml/min/1.73 sqM) Glucose 113 H (74-99) mg/dL Plasma Lactic Acid Gabriel (0.7-2.0) mmol/L Calcium 9.2 (8.4-10.2) mg/dL Magnesium 1.6 (1.6-2.3) mg/dL Total Bilirubin 0.4 (0.2-1.3) mg/dL AST 24 (14-36) U/L ALT 16 (4-34) U/L Alkaline Phosphatase 124 (38-126) U/L Troponin I (0.000-0.034) ng/mL Total Protein 5.5 L (6.3-8.2) g/dL Albumin 3.3 L (3.5-5.0) g/dL 01/19/24 01/19/24 Range/Units 21:10 21:10 WBC (3.8-10.6) k/uL RBC (3.80-5.40) m/uL Hgb (11.4-16.0) gm/dL Hct (34.0-46.0) % MCV (80.0-100.0) fL MCH (25.0-35.0) pg MCHC (31.0-37.0) g/dL RDW (11.5-15.5) % Plt Count (150-450) k/uL MPV Neutrophils % % Lymphocytes % % Monocytes % % Eosinophils % % Basophils % % Neutrophils # (1.3-7.7) k/uL Lymphocytes # (1.0-4.8) k/uL Monocytes # (0-1.0) k/uL Eosinophils # (0-0.7) k/uL Basophils # (0-0.2) k/uL PT (10.0-12.5) sec INR (<1.2) APTT (22.0-30.0) sec Sodium (137-145) mmol/L Potassium (3.5-5.1) mmol/L Chloride (98-107) mmol/L Carbon Dioxide (22-30) mmol/L Anion Gap mmol/L BUN (7-17) mg/dL Creatinine (0.52-1.04) mg/dL Est GFR (CKD-EPI)AfAm (>60 ml/min/1.73 sqM) Est GFR (CKD-EPI)NonAf (>60 ml/min/1.73 sqM) Glucose (74-99) mg/dL Plasma Lactic Acid Gabriel 0.6 L (0.7-2.0) mmol/L Calcium (8.4-10.2) mg/dL Magnesium (1.6-2.3) mg/dL Total Bilirubin (0.2-1.3) mg/dL AST (14-36) U/L ALT (4-34) U/L Alkaline Phosphatase (38-126) U/L Troponin I <0.012 (0.000-0.034) ng/mL Total Protein (6.3-8.2) g/dL Albumin (3.5-5.0) g/dL Disposition Clinical Impression: Fall, Head injury, Scalp hematoma Disposition: HOME SELF-CARE Condition: Good Instructions (If sedation given, give patient instructions): Head Injury (ED), Contusion in Adults (ED) Additional Instructions: Follow-up with PCP. Report back to ER with any new or worsening symptoms. Is patient prescribed a controlled substance at d/c from ED?: No Referrals: Trey Valadez MD [Primary Care Provider] - 1-2 days Time of Disposition: 22:43
[2024-01-19 23:27] VITALS: BP 128/49; PULSE 57; RESP 14
== END 2024-01-19 23:20 | disposition home or self-care (01) ==
LOC: EC 19:37
DX: S00.03XA Contusion of scalp, initial encounter (principal); Z88.5 Allergy status to narcotic agent; W18.30XA Fall on same level, unspecified, initial encounter
CPT/HCPCS: 36415; 70450; 71046; 72125; 80053; 83605; 83735; 84484; 85025; 85610; 85730; 93005; 99284